=== PATIENT | male | born 1935 | race Caucasian/White ===

== ENCOUNTER 2023-07-05 18:05 | Emergency (ER) | payer OTHER, SELFPAY ==
[2023-07-05] VITALS (10 sets, daily range): BP systolic 137–203; BP diastolic 65–87; PULSE 64–96; RESP 16–26; TEMP 37–37.2; O2SAT 95–98; BMI 30.5
[2023-07-05 19:28] LABS: Alanine Aminotransferase 34 IU/L (<50); Albumin 4.1 g/dL (3.5-5.0); Albumin Globulin Ratio 1.3 (1.0-2.8); Alkaline Phosphatase 103 U/L (38-126); Aspartate Aminotransferase 32 IU/L (17-59); BUN Creatinine Ratio 16.7 (6-22); Bilirubin Total 0.9 mg/dL (0.2-1.3); Blood Urea Nitrogen 19 mg/dL (9-20); Calcium 9.6 mg/dL (8.4-10.2); Carbon Dioxide 24 mmol/L (22-32); Chloride 104 mmol/L (98-107); Estimated Glomerular Filt Rate > 60 mL/min (>60); Globulin 3.1 g/dL (1.7-4.1); Glucose 101 mg/dL (80-110); HEMOLYSIS < 15 (0-50); Lipase 224 U/L (23-300); Potassium 4.6 mmol/L (3.4-5.1); Sodium 135 mmol/L (137-145); Total Protein 7.2 g/dL (6.3-8.2)
[2023-07-05 20:26] LABS: Add Manual Diff / Slide Review NO; Basophils Absolute Auto 0 /uL (0-100); Basophils Percent Auto 0.4 % (0-2); Eosinophils Absolute Auto 100 /uL (0-450); Eosinophils Percent Auto 1.6 % (2-4); Hematocrit 45.8 % (41-53); Hemoglobin 15.6 g/dL (13.5-17.5); Lymphocytes Absolute Auto 900 /uL (1100-4500); Mean Corpuscular HGB Conc 34.1 % (30-36); Mean Corpuscular Hemoglobin 30.8 PG (26-34); Mean Corpuscular Volume 90.5 fL (80-100); Monocytes Absolute Auto 800 /uL (0-900); Monocytes Percent Auto 9.9 % (3-14); Neutrophils Absolute Auto 6600 /uL (1500-7000); Neutrophils Percent Auto 77.1 % (50-75); Platelet Count 166 X10^3/uL (150-400); Red Blood Cell Count 5.06 X10^6/uL (4.5-5.9); Red Cell Distribution Width 14.3 % (11.6-14.8); White Blood Cell Count 8.5 X10^3/uL (4.5-11.0)
--- NOTE | 2023-07-05 20:38 | DI.CT.S_ITS ---
PROCEDURE: CT ABDOMEN PELVIS W CON INDICATIONS: back pain radiates to lower abd x 1 day TECHNIQUE: After the administration of intravenous contrast, axial sections acquired from the lung bases to the pubic symphysis. Coronal and sagittal reformats were performed. For radiation dose reduction, the following was used: automated exposure control, adjustment of mA and/or kV according to patient size. COMPARISON: [facility], CT, CT ANGIO CHEST PE, 06/11/2019, 15:02. FINDINGS: Image quality: Excellent. Lung bases: Small hiatal hernia. Heart: Cardiomegaly. ABDOMEN: Liver: Unremarkable. Gallbladder: Absent. Biliary ducts: Unremarkable. Pancreas: 2.8 cm cystic lesion associated with the pancreatic body, without internal complexity (series 2, image 24). No ductal dilation. Spleen: Unremarkable. Adrenal Glands: Unremarkable. Kidneys and Ureters: Fluid attenuating renal cysts; no complex renal cysts which require follow-up. No hydronephrosis or nephrolithiasis. Stomach and Bowel: Colonic diverticulosis without evidence of diverticulitis. Peritoneum: No abnormal intraperitoneal fluid. No free air. Ventral Wall: No hernias. Abdominal Nodes: No retroperitoneal or mesenteric adenopathy by size criteria. Vessels: Aorta and inferior vena cava are normal in size. PELVIS: Pelvic Organs: Prostatomegaly. Bladder: Unremarkable. Pelvic Nodes: No enlarged lymph nodes. Miscellaneous: Small amount of fat within the inguinal canals. Bones: Subacute appearing compression deformity of the L4 inferior endplate, without endplate retropulsion. Anterior wedging the T12 vertebral body. IMPRESSION: Subacute appearing compression deformity of the L4 inferior endplate, without endplate retropulsion. 2.8 cm cystic lesion within the pancreatic body, without associated nodularity or ductal dilation. Findings favor a side branch IPMN. Confirmation with nonurgent MRI (pancreatic mass protocol) is recommended for further characterization. Colonic diverticulosis without evidence of diverticulitis. No obstructing stones or hydronephrosis. Dictated by: Ever Blackburn M.D. on 07/05/2023 at 21:18 Approved by: Ever Blackburn M.D. on 07/05/2023 at 21:28
[2023-07-05] MEDS: KETOROLAC 30 MG/ML VIAL 15 MG IV (20:45)
[2023-07-05] MEDS: ONDANSETRON 4 MG/2 ML INJ IV (20:45)
[2023-07-05] MEDS: SODIUM CHLORIDE 0.9% 1,000 ML 1000 ML IV (20:45)
--- NOTE | 2023-07-05 20:54 | ED.ABDPAIN ---
HPI - Abdominal Pain General Chief Complaint: Abdominal Pain Stated Complaint: pancreatic pain, back pain, nausea Time Seen by Provider: 07/05/23 20:23 Source: patient Mode of arrival: Wheelchair Limitations: no limitations History of Present Illness HPI narrative: 87-year-old male with history of hypertension, dyslipidemia, coronary artery disease with prior CABG, anticoagulated on aspirin, urinary retention, diabetes, hypertension, GERD and mild dementia. Patient presents with complaint of back and abdominal pain that just started today. He states it feels like it wants to explode. He thought he might be pancreatitis which he is had in the past but he states it is somewhat different. He was watching his diet today which has not made any improvements. He denies any fevers or chills. No chest pain no shortness of breath. He did have some nausea today he is not had any vomiting. Had a diarrhea like bowel movement today x1. No black or bloody stools. States was stooling regularly yesterday. Noted his urination was a little bit less and more frequent today but no dysuria. He denies any swelling in extremities. States pain is bilaterally in his back and comes around to the front. Patient's home meds include aspirin, atorvastatin, bumetanide seen, B12, donepezil, Jardiance, metoprolol, Motegrity, nitro sublingual, omeprazole and Ambien. Prior surgeries include CABG x2, denies any prior pacemakers or prior abdominal surgeries. No known drug allergies. No tobacco alcohol every 3 months, no recreational drugs or illicit. He splits his time between [place] and [place]. His primary care is Dr. Antunez in [place], [place]. Related Data Home Medications Medication Instructions Recorded Confirmed atorvastatin 80 mg tablet 80 mg PO DAILY 02/09/22 02/09/22 donepezil 10 mg tablet 10 mg PO DAILY 02/09/22 02/09/22 furosemide 20 mg tablet (Lasix) 10 mg PO QAM 02/09/22 02/09/22 isosorbide mononitrate 20 mg tablet 20 mg PO BID 02/09/22 02/09/22 metoprolol succinate 25 mg 25 mg PO DAILY 02/09/22 02/09/22 tablet,extended release 24 hr omeprazole magnesium 20 mg 20 mg PO DAILY 02/09/22 02/09/22 capsule,delayed release ([employer] (omeprazole)) tamsulosin 0.4 mg capsule 0.4 mg PO BEDTIME 02/09/22 02/09/22 zolpidem 5 mg tablet 5 mg PO BEDTIME PRN 02/09/22 02/09/22 Previous Rx's Medication Instructions Recorded benzonatate 100 mg capsule 100 mg PO TID PRN cough #30 caps 02/09/22 meloxicam 7.5 mg tablet 7.5 mg PO BID PRN pain #10 tabs 07/05/23 Allergies Allergy/AdvReac Type Severity Reaction Status Date / Time No Known Drug Allergies Allergy Unverified 02/09/22 16:47 Review of Systems Review of Systems ROS Unobtainable: All systems reviewed & are unremarkable except as noted in HPI and below Patient History Social History Smoking Status: Never smoker Smoking Status: Never smoker Substance Use Type: does not use Exam Narrative Exam Narrative: GENERAL: Alert and oriented x three, elderly male in mild distress. HEENT: Head normocephalic, atraumatic, EOMI, pupils reactive, face symmetric, moist mucous membranes NECK: Supple, full range of motion CARDIOVASCULAR: Regular rate and rhythm without murmurs, rubs or gallops. RESPIRATORY: Breath sounds equal bilaterally, no wheezes rales or rhonchi. ABDOMEN: Soft, generalized mild tenderness. Found distended. Normoactive bowel sounds all 4 quadrants. No guarding or rebound, rigidity, no mass, hernias. No palpable bladder. : No CVA tenderness EXTREMITIES: Normal range of motion, no clubbing or edema. Neurovascularly intact. NEUROLOGICAL: Cranial nerves II through XII grossly intact. Moving all extremities SKIN: Warm, dry, no petechiae, no rashes or lesions. Initial Vital Signs Initial Vital Signs: Vital Signs Temperature 98.9 F 07/05/23 18:25 Pulse Rate 72 07/05/23 18:25 Respiratory Rate 18 07/05/23 18:25 Blood Pressure 137/65 07/05/23 18:25 Pulse Oximetry 98 07/05/23 18:25 Oxygen Delivery Method Room Air 07/05/23 18:25 Course Orders Ordered: ED Orders 07/05/23 18:31 EKG-12 Lead Stat 07/05/23 19:05 Complete Blood Count AUTO DIFF Stat Comprehensive Metabolic Panel Stat Lipase Stat 07/05/23 20:38 CT abdomen pelvis w con Stat 07/05/23 20:42 Urine Microscopic Stat Discontinued Medications Sodium Chloride (Normal Saline 0.9%) 1,000 mls @ 1,000 mls/hr IV BOLUS ONE Stop: 07/05/23 21:37 Last Infusion: 07/05/23 21:45 Dose: Infused Documented By: Admin: 07/05/23 20:45 Dose: 1,000 mls/hr Documented By: AMV Ketorolac Tromethamine (Ketorolac 30 Mg/Ml Vial) 15 mg IV NOW ONE Stop: 07/05/23 20:39 Last Admin: 07/05/23 20:45 Dose: 15 mg Documented By: AMV Ondansetron HCl (Ondansetron 4 Mg Odt) 4 mg PO NOW PRN PRN Reason: Nausea And Vomiting Ondansetron HCl (Ondansetron 4 Mg/2 Ml Inj) 4 mg IV NOW PRN PRN Reason: Nausea And Vomiting Last Admin: 07/05/23 20:45 Dose: 4 mg Documented By: AMPino Tramadol HCl (Tramadol 50 Mg Prepack) 1 bottle MISC SEEINSTR ONE Stop: 07/05/23 21:55 Vital Signs Vital signs: Vital Signs - 8 hr 07/05/23 19:04 07/05/23 19:30 07/05/23 19:31 Temperature Pulse Rate 64 72 72 Respiratory Rate 18 20 20 Blood Pressure Pulse Oximetry 97 95 95 Oxygen Delivery Method 07/05/23 19:31 07/05/23 20:00 07/05/23 20:01 Temperature Pulse Rate 69 Respiratory Rate 26 H Blood Pressure 195/82 H 194/87 H Pulse Oximetry 96 Oxygen Delivery Method 07/05/23 20:01 07/05/23 20:30 07/05/23 20:30 Temperature Pulse Rate 77 80 Respiratory Rate 22 22 Blood Pressure 179/82 H Pulse Oximetry 96 98 Oxygen Delivery Method 07/05/23 21:03 07/05/23 21:13 07/05/23 21:13 Temperature Pulse Rate 79 75 Respiratory Rate 18 20 Blood Pressure 203/79 H Pulse Oximetry 97 95 Oxygen Delivery Method 07/05/23 21:59 Temperature 98.6 F Pulse Rate 96 H Respiratory Rate 16 Blood Pressure 163/76 H Pulse Oximetry 96 Oxygen Delivery Method Room Air MDM - Abdominal Pain Lab Data 07/05/23 19:05 07/05/23 19:05 Labs: Lab Results 07/05/23 07/05/23 Range/Units 19:05 20:42 WBC 8.5 (4.5-11.0) X10^3/uL RBC 5.06 (4.5-5.9) X10^6/uL Hgb 15.6 (13.5-17.5) g/dL Hct 45.8 (41-53) % MCV 90.5 (80-100) fL MCH 30.8 (26-34) PG MCHC 34.1 (30-36) % RDW 14.3 (11.6-14.8) % Plt Count 166 (150-400) X10^3/uL Neut % (Auto) 77.1 H (50-75) % Lymph % (Auto) 11.0 L (25-40) % [place] % (Auto) 9.9 (3-14) % Eos % (Auto) 1.6 L (2-4) % Baso % (Auto) 0.4 (0-2) % Neut # (Auto) 6600 (6871-8370) /uL Lymph # (Auto) 900 L (5430-5608) /uL [place] # (Auto) 800 (0-900) /uL Eos # (Auto) 100 (0-450) /uL Baso # (Auto) 0 (0-100) /uL Sodium 135 L (137-145) mmol/L Potassium 4.6 (3.4-5.1) mmol/L Chloride 104 (98-107) mmol/L Carbon Dioxide 24 (22-32) mmol/L BUN 19 (9-20) mg/dL Creatinine 1.14 (0.66-1.25) mg/dL Estimated GFR > 60 (>60) mL/min BUN/Creatinine Ratio 16.7 (6-22) Glucose 101 (80-110) mg/dL Calcium 9.6 (8.4-10.2) mg/dL Total Bilirubin 0.9 (0.2-1.3) mg/dL AST 32 (17-59) IU/L ALT 34 (<50) IU/L Alkaline Phosphatase 103 (38-126) U/L Total Protein 7.2 (6.3-8.2) g/dL Albumin 4.1 (3.5-5.0) g/dL Globulin 3.1 (1.7-4.1) g/dL Albumin/Globulin Ratio 1.3 (1.0-2.8) Lipase 224 (23-300) U/L Urine RBC 0-1/hpf (0-5/HPF) Urine WBC None seen (0-5/HPF) Ur Squamous Epith Cells 0-1 /hpf (0-5/HPF) Urine Bacteria None seen (None) Ur Culture Indicated? Cult not indicated Point of care testing: Urine Dip Bedside Urine Glucose 1000 mg/dl Bedside Urine Bilirubin - Negative Bedside Urine Ketone +/- 5 Urine Specific [place] 1.015 Bedside Urine Occult Blood - Negative Bedside Urine pH 6 Bedside Urine Protein +/- 15 Bedside Urine Urobilinogen - Negative Bedside Urine Nitrite - Negative Bedside Urine Leukocytes - Negative Esterase Imaging Data CT scan - abdomen/pelvis: Radiologist's Impression: Gaudencio Mckoy??87??M??1935 ? Allergy/Adv: No Known Drug Allergies Close Abdomen/Pelvis CT (Signed) Ever Blackburn - 07/05/23 [address]?[place] [address] CT Scan Report Signed Patient: Gaudencio Mckoy MR#: [id number] : 1935 Acct:[id number] Age/Sex: 87 / M Date of Service: 07/05/23 Loc: ED Accession Number: [id number] Procedure: CT abdomen pelvis w con Ordering Provider: Alice Harp D.O. PROCEDURE: CT ABDOMEN PELVIS W CON INDICATIONS: back pain radiates to lower abd x 1 day TECHNIQUE: After the administration of intravenous contrast, axial sections acquired from the lung bases to the pubic symphysis. Coronal and sagittal reformats were performed. For radiation dose reduction, the following was used: automated exposure control, adjustment of mA and/or kV according to patient size. COMPARISON: [facility], CT, CT ANGIO CHEST PE, 06/11/2019, 15:02. FINDINGS: Image quality: Excellent. Lung bases: Small hiatal hernia. Heart: Cardiomegaly. ABDOMEN: Liver: Unremarkable. Gallbladder: Absent. Biliary ducts: Unremarkable. Pancreas: 2.8 cm cystic lesion associated with the pancreatic body, without internal complexity (series 2, image 24). No ductal dilation. Spleen: Unremarkable. Adrenal Glands: Unremarkable. Kidneys and Ureters: Fluid attenuating renal cysts; no complex renal cysts which require follow-up. No hydronephrosis or nephrolithiasis. Stomach and Bowel: Colonic diverticulosis without evidence of diverticulitis. Peritoneum: No abnormal intraperitoneal fluid. No free air. Ventral Wall: No hernias. Abdominal Nodes: No retroperitoneal or mesenteric adenopathy by size criteria. Vessels: Aorta and inferior vena cava are normal in size. PELVIS: Pelvic Organs: Prostatomegaly. Bladder: Unremarkable. Pelvic Nodes: No enlarged lymph nodes. Miscellaneous: Small amount of fat within the inguinal canals. Bones: Subacute appearing compression deformity of the L4 inferior endplate, without endplate retropulsion. Anterior wedging the T12 vertebral body. IMPRESSION: Subacute appearing compression deformity of the L4 inferior endplate, without endplate retropulsion. 2.8 cm cystic lesion within the pancreatic body, without associated nodularity or ductal dilation. Findings favor a side branch IPMN. Confirmation with nonurgent MRI (pancreatic mass protocol) is recommended for further characterization. Colonic diverticulosis without evidence of diverticulitis. No obstructing stones or hydronephrosis. Dictated by: Ever Blackburn M.D. on 07/05/2023 at 21:18 Approved by: Ever Blackburn M.D. on 07/05/2023 at 21:28 ECG Data Attestation: I personally reviewed and interpreted this ECG as follows: Interpretation: Sinus rhythm with first-degree AV block rate of 60 6p are 224, QRS of 116 QTC of 410. Patient has frequent PVC. No acute ST changes are appreciated. Patient does not have priors for comparison. MDM Narrative Medical decision making narrative: 87-year-old male with complaint of lower abdominal/pelvic pain sudden onset today has been persistent has had prior histories of pancreatitis but states he feels somewhat different. Did have some nausea today no vomiting did have a diarrhea like stool. CBC shows slight leftward shift but normal white count, hemoglobin hematocrit and platelets. Sodium is 135 potassium 4 6 with normal renal function, BUN and LFTs with a negative lipase. Urine shows some protein but no nitrates or leuks. Started when RBCs no white cells, no bacteria. Patient's abdominal exam is overall benign. Patient was given dose of pain medication and on recheck he is feeling improved. CT abdomen pelvis subacute appearing compression deformity L4 without endplate retropulsion 2.8 meters cystic lesion pancreatic body without nodularity or ductal dilation is could be a side branch IPMN recommend confirmation with nonurgent MRI pancreatic mass protocol in the future no complex renal cyst but does have fluid attenuating renal cyst. Prostatomegaly and small amounts of fat with an inguinal canals. On recheck after pain medication patient is feeling much improved. Did have some pain still with transfer from wheelchair back to the bed but states he is much better. Reviewed all of his findings he feels comfortable returning back home. Patient states he does not have a specific timeframe to return to [place]. Discussed return precautions. Patient states he feels comfortable returning back to his home. Discharge Plan Departure Patient Disposition: Home Clinical Impression: Closed compression fracture of L4 vertebra, Cystic mass of pancreas Instructions: DI for Abdominal Pain-Adult Activity Restrictions/Additional Instructions: Your workup today shows a compression fracture L4 region this can cause pain in your back and sometimes wrap around. This appears to be subacute and could be contributing to your symptoms today. There is a cystic lesion in the pancreas that is 2.8 cm recommended to follow-up with your primary care for MRI pancreatic mass protocol in the future. Please call to set up follow-up. You may take Tylenol up to a 1000 mg every 6 hours as needed for pain. If in adequate you can also take meloxicam 1 tablet every 12 hours as needed. Do not take other NSAIDs such as Aleve, naproxen or ibuprofen with this medication. You have a small amount of narcotic pain medication you can take 1 tablet every 6 hours as needed. This medication can make you sleepy do not drive, perform hazardous activities or make any major decisions while taking it. This medication will make you constipated please take a stool softener once to twice daily until stools are soft and regular. Please return for fevers, rapidly worsening symptoms, new numbness, tingling or weakness down your extremities, new loss of bowel or bladder control, passing out or other new or concerning changes. Prescriptions: New meloxicam 7.5 mg tablet 7.5 mg PO BID PRN (Reason: pain) Qty: 10 0RF No Action benzonatate 100 mg capsule 100 mg PO TID PRN (Reason: cough) Qty: 30 0RF omeprazole magnesium [[employer] (omeprazole)] 20 mg capsule,delayed release(DR/EC) 20 mg PO DAILY isosorbide mononitrate 20 mg tablet 20 mg PO BID Rx Instructions: give doses 7 hrs apart furosemide [Lasix] 20 mg tablet 10 mg PO QAM tamsulosin 0.4 mg capsule 0.4 mg PO BEDTIME metoprolol succinate 25 mg tablet extended release 24 hr 25 mg PO DAILY atorvastatin 80 mg tablet 80 mg PO DAILY zolpidem 5 mg tablet 5 mg PO BEDTIME PRN donepezil 10 mg tablet 10 mg PO DAILY Referrals: Miscellaneous,Doctor, MD [Primary Care Provider] - Stand Alone Forms: Patient Portal/API
[2023-07-05 21:12] LABS: Bacteria Urine None Seen; Culture Indicated Urine Cult Not Indicated; RBC Urine 0-1/HPF (0-5/HPF); Squamous Epithelial Cell Urine 0-1 /HPF (0-5/HPF); WBC Urine None Seen (0-5/HPF)
== END 2023-07-05 22:16 | disposition home or self-care (01) ==
PROVIDERS: Emergency Provider Emergency Medicine
DX: M48.56XA Collapsed vertebra, not elsewhere classified, lumbar region, initial encounter for fracture (principal); K86.2 Cyst of pancreas; F03.A0 Unspecified dementia, mild, without behavioral disturbance, psychotic disturbance, mood disturbance, and anxiety
CPT/HCPCS: 36415; 74177; 80053; 81003; 81015; 83690; 85025; 93005; 93010; 96361; 96374; 96375; 99284; J1885; J2405; Q9967

== ENCOUNTER 2023-07-31 15:24 | Observation (INO) | payer OTHER, SELFPAY ==
[2023-07-31] VITALS (11 sets, daily range): BP systolic 132–188; BP diastolic 62–86; PULSE 75–88; RESP 16–30; TEMP 36.5–36.6; O2SAT 92–100; BMI 24.1
--- NOTE | 2023-07-31 15:35 | PC.NURSE ---
Recent hospitalization at [facility] for severe back pain and compression fractures. Patient being medicated with narcotics for back pain and visited by home health. Patient reports sudden loss of bowels dark in nature. Patient presents with dry dark black stool on lower legs and shirt. Patient states it just comes out with no control. Reports lightheaded and dizzy. Denies chest pain.
--- NOTE | 2023-07-31 15:42 | ED_ITS ---
HPI - GI Bleed General Chief complaint: GI Bleed Stated complaint: back pain, dizzy Time Seen by Provider: 07/31/23 15:40 Source: patient, EMS, RN notes reviewed and old records reviewed Mode of arrival: EMS Limitations: no limitations History of Present Illness HPI Narrative: 87-year-old male with history of hypertension, dyslipidemia, prior CABG, anticoagulant on aspirin, diabetes, hypertension, GERD and mild dementia. Patient states he was recently hospitalized at [facility] for vertebral fractures. He was discharged home after several days. Patient states since then he developed black tarry stools that have been several times daily that he is not been able to control. He is felt lightheaded denies syncope. Denies chest pain or shortness of breath. No nausea or vomiting. Patient has had frequent diarrhea like stools that have been melanotic. He does not appreciate any bright red blood. Patient denies any urinary changes but states maybe a little decreased. Related Data Home Medications Medication Instructions Recorded Confirmed atorvastatin 80 mg tablet 80 mg PO DAILY 02/09/22 07/31/23 donepezil 10 mg tablet 10 mg PO DAILY 02/09/22 07/31/23 metoprolol succinate 25 mg 100 mg PO DAILY 02/09/22 07/31/23 tablet,extended release 24 hr tamsulosin 0.4 mg capsule 0.4 mg PO BEDTIME 02/09/22 07/31/23 amlodipine 10 mg tablet 10 mg PO DAILY 07/31/23 07/31/23 bumetanide 1 mg tablet 1 mg PO DAILY 07/31/23 07/31/23 duloxetine 30 mg capsule,delayed 30 mg PO DAILY 07/31/23 07/31/23 release empagliflozin 10 mg tablet 10 mg PO DAILY 07/31/23 07/31/23 (Jardiance) losartan 100 mg tablet 100 mg PO DAILY 07/31/23 07/31/23 oxycodone 5 mg tablet 5 mg PO 4XD PRN Pain (Scale Score 07/31/23 07/31/23 4-6) trazodone 100 mg tablet 100 mg PO ONCE PM 07/31/23 07/31/23 Previous Rx's Medication Instructions Recorded meloxicam 7.5 mg tablet 7.5 mg PO BID PRN pain #10 tabs 07/05/23 Allergies Allergy/AdvReac Type Severity Reaction Status Date / Time No Known Drug Allergies Allergy Verified 07/31/23 15:39 Review of Systems Review of Systems ROS Unobtainable: All systems reviewed & are unremarkable except as noted in HPI and below Patient History Social History household members: spouse Smoking Status: Never smoker alcohol intake: former Smoking Status: Never smoker Substance Use Type: does not use Exam Narrative Exam Narrative: GENERAL: Alert and oriented x three, elderly male in mild distress. Patient does have black tarry stools on heat abdomen and scattered. HEENT: Head normocephalic, atraumatic, EOMI, pupils reactive, face symmetric, moist mucous membranes NECK: Supple, full range of motion CARDIOVASCULAR: Regular rate and rhythm without murmurs, rubs or gallops. RESPIRATORY: Breath sounds equal bilaterally, no wheezes rales or rhonchi. ABDOMEN: Soft, nontender. Normoactive bowel sounds all 4 quadrants. No guarding or rebound, rigidity, no mass, no active stool output on initial exam. : No CVA tenderness EXTREMITIES: Normal range of motion, no clubbing or edema. Neurovascularly intact NEUROLOGICAL: Cranial nerves II through XII grossly intact. Moving all extremities SKIN: Warm, dry, no petechiae, no rashes or lesions. Initial Vital Signs Initial Vital Signs: Vital Signs Temperature 98 F 07/31/23 15:34 Pulse Rate 80 07/31/23 15:34 Respiratory Rate 16 07/31/23 15:34 Blood Pressure 132/62 07/31/23 15:34 Pulse Oximetry 98 07/31/23 15:34 Oxygen Delivery Method Room Air 07/31/23 15:34 Course Orders Ordered: Atorvastatin Calcium (Atorvastatin 20 Mg Tablet) 80 mg PO DAILY NONA Donepezil HCl (Donepezil 5 Mg Tablet) 10 mg PO DAILY NONA Duloxetine HCl (Duloxetine 30 Mg Capsule) 30 mg PO DAILY NONA Sodium Chloride (Normal Saline 0.9%) 1,000 mls @ 100 mls/hr IV CONT NONA Last Admin: 07/31/23 23:30 Dose: 100 mls/hr Documented By: AGW Dextrose (D10w) 100 mls @ 1,200 mls/hr IV PRN PRN PRN Reason: Hypoglycemia Insulin Human Lispro (Insulin Lispro 100 Unit/Ml 3ml Vial) 0 unit SUBCUT ACHS NONA; Protocol Last Admin: 07/31/23 22:12 Dose: Not Given Documented By: ISAEL Metoprolol Succinate (Metoprolol Er 25 Mg Tablet) 100 mg PO DAILY [facility] Ondansetron HCl (Ondansetron 4 Mg/2 Ml Inj) 4 mg IV Q4HR PRN PRN Reason: Nausea And Vomiting Oxycodone HCl (Oxycodone Ir 5 Mg Tablet) 5 mg PO QID PRN PRN Reason: Pain, Moderate (4-6) Pantoprazole Sodium (Pantoprazole 40 Mg Vial) 40 mg IV BID [facility] Last Admin: 07/31/23 20:38 Dose: 40 mg Documented By: ISAEL Tamsulosin HCl (Tamsulosin 0.4 Mg Capsule) 0.4 mg PO BEDTIME [facility] Last Admin: 07/31/23 20:38 Dose: 0.4 mg Documented By: ISAEL Trazodone HCl (Trazodone 50 Mg Tablet) 100 mg PO BEDTIME [facility] Last Admin: 07/31/23 20:37 Dose: 100 mg Documented By: ISAEL Discontinued Medications Sodium Chloride (Normal Saline 0.9%) 1,000 mls @ 125 mls/hr IV CONT [facility] Last Infusion: 07/31/23 17:32 Dose: 125 mls/hr Documented By: Admin: 07/31/23 16:19 Dose: 125 mls/hr Documented By: EZRA Ondansetron HCl (Ondansetron 4 Mg/2 Ml Inj) 4 mg IV NOW PRN PRN Reason: Nausea And Vomiting Last Admin: 07/31/23 16:20 Dose: 4 mg Documented By: EZRA Pantoprazole Sodium (Pantoprazole 40 Mg Vial) 80 mg IV NOW ONE Stop: 07/31/23 15:41 Last Admin: 07/31/23 16:20 Dose: 80 mg Documented By: EZRA Vital Signs Vital signs: Vital Signs - 8 hr 07/31/23 15:34 07/31/23 15:38 07/31/23 16:00 Temperature 98 F Pulse Rate 80 80 79 Respiratory Rate 16 25 H 17 Blood Pressure 132/62 Pulse Oximetry 98 100 97 Oxygen Delivery Method Room Air 07/31/23 16:01 07/31/23 16:01 07/31/23 16:30 Temperature Pulse Rate 79 77 Respiratory Rate 19 23 Blood Pressure 188/72 H Pulse Oximetry 99 99 Oxygen Delivery Method 07/31/23 16:31 07/31/23 16:31 Temperature Pulse Rate 80 Respiratory Rate 30 H Blood Pressure 162/72 H Pulse Oximetry 99 Oxygen Delivery Method MDM - GI Bleed Lab Data 07/31/23 21:22 07/31/23 15:27 Labs: Lab Results 07/31/23 Range/Units 15:27 WBC 13.9 H (4.5-11.0) X10^3/uL RBC 4.23 L (4.5-5.9) X10^6/uL Hgb 12.7 L (13.5-17.5) g/dL Hct 37.8 L (41-53) % MCV 89.3 (80-100) fL MCH 30.0 (26-34) PG MCHC 33.6 (30-36) % RDW 14.7 (11.6-14.8) % Plt Count 186 (150-400) X10^3/uL Neut % (Auto) 79.9 H (50-75) % Lymph % (Auto) 13.4 L (25-40) % Swift % (Auto) 6.4 (3-14) % Eos % (Auto) 0.1 L (2-4) % Baso % (Auto) 0.2 (0-2) % Neut # (Auto) 08721 H (5814-7429) /uL Lymph # (Auto) 1900 (8660-6670) /uL Swift # (Auto) 900 (0-900) /uL Eos # (Auto) 0 (0-450) /uL Baso # (Auto) 0 (0-100) /uL PT 11.5 (9.4-12.5) SECONDS INR 1.0 (0.9-1.3) APTT 27 (25.1-36.5) SECONDS Sodium 134 L (137-145) mmol/L Potassium 4.2 (3.4-5.1) mmol/L Chloride 102 (98-107) mmol/L Carbon Dioxide 24 (22-32) mmol/L BUN 50 H (9-20) mg/dL Creatinine 1.27 H (0.66-1.25) mg/dL Estimated GFR 55 L (>60) mL/min BUN/Creatinine Ratio 39.4 H (6-22) Glucose 100 (80-110) mg/dL Calcium 9.3 (8.4-10.2) mg/dL Total Bilirubin 1.1 (0.2-1.3) mg/dL AST 27 (17-59) IU/L ALT 24 (<50) IU/L Alkaline Phosphatase 127 H (38-126) U/L Total Protein 6.1 L (6.3-8.2) g/dL Albumin 3.3 L (3.5-5.0) g/dL Globulin 2.8 (1.7-4.1) g/dL Albumin/Globulin Ratio 1.2 (1.0-2.8) Blood Type A Negative Antibody Screen Positive Antibody Identification Anti-Fya Imaging Data CT scan - abdomen/pelvis: Radiologist's Impression: [address] [address] [address] Scan Report Signed Patient: Gaudencio Mckoy MR#: [id number] : 1935 Acct:[id number] Age/Sex: 87 / M Date of Service: 07/31/23 Loc: ED Accession Number: [id number] Procedure: CT angio Abd/Pel GI Bleed Ordering Provider: Alice Harp D.O. PROCEDURE: CT ANGIO ABD/PEL GI BLEED INDICATIONS: gi bleed, melenotic stools x 3 days TECHNIQUE: Precontrast CT imaging of the abdomen and pelvis is performed. After the administration of intravenous contrast, 2.5 mm thick sections acquired from the diaphragm to the symphysis. 10 mm maximum-intensity projection (MIP) reformats were then acquired. For radiation dose reduction, the following was used: automated exposure control. COMPARISON: [facility], CT, CT ABDOMEN PELVIS W CON, 07/05/2023, 20:44. FINDINGS: Image quality: Excellent. Arterial tree: Moderate diffuse calcific plaque causes mild diffuse stenosis within the aortoiliac vasculature. Bilateral iliac artery stents are present. Mild calcific origin stenosis of the celiac artery. Moderate calcific origin stenosis of the superior mesenteric artery. 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 Extravascular soft tissues: Lung bases are clear. Heart size is normal. Liver is normal in size and enhancement. Gallbladder is surgically absent . Biliary system is non dilated. 30 mm exophytic cyst protrudes superiorly from the pancreatic body. Pancreas otherwise enhances normally. Spleen is normal in size and enhancement. No adrenal nodules. Kidneys are normal in size and enhancement, without hydronephrosis. Small hiatal hernia. Diverticulosis of the descending and sigmoid colon. Non opacified bowel loops are normal in wall thickness and caliber. No evidence of contrast extravasation into the bowel lumen. No free fluid or air. No retroperitoneal or mesenteric adenopathy. No ventral hernias. No suspicious bony lesions. No change in mild subacute wedging of L4. There is increased, severe acute versus subacute wedging of T12 IMPRESSION: 1. No evidence of active gastrointestinal hemorrhage. 2. No change in cystic lesion of the pancreas. 3. Small hiatal hernia. 4. Progressive T12 compression fracture. Dictated by: Mauri Thompson M.D. on 07/31/2023 at 16:05 Approved by: Mauri Thompson M.D. on 07/31/2023 at 16:16 MDM Narrative Medical decision making narrative: 87-year-old male presents with complaint of melanotic stools. Patient has been hemodynamically stable but did have a drop in hemoglobin from 15.6-12.7 in the past month. White count today is 13.9, patient has normal cell size. Platelets are 186. Coags are negative. Creatinine is 1.27 was 1.14 on 07/05 sodium is 134. BUN is elevated at 50 consistent with possible dehydration but more likely GI bleed. Other electrolytes are appropriate alk-phos is slightly elevated 127 but otherwise normal LFTs. Patient did have CT abdomen pelvis GI bleed protocol. No evidence of active GI bleeding, no change in cystic lesion in the pancreas, small hiatal hernia progressive T12 compression fracture. Moderate diffuse calcific plaque causing mild diffuse stenosis in the aortic iliac vasculature. Inferior mesenteric artery demonstrate high-grade origin stenosis. Patient does not have any abdominal pain making ischemic bowel unlikely. Patient received Protonix. Has type and screen pending. Does not require transfusion at this time. Continue with gentle fluids. Patient has been hemodynamically stable but did have a drop 3 points hemoglobin. Call out to Dr. Islas on-call for General surgery. Spoke with Dr. Raza, hospitalist accepts. waiting for call back from General surgery they currently in the OR. Discharge Plan Departure Patient Disposition: Admitted as Observation Clinical Impression: Acute GI bleeding Admit Date/Time: 07/31/23 17:13 Admit Provider: Kwabena Raza
[2023-07-31 16:03] LABS: Add Manual Diff / Slide Review NO; Basophils Absolute Auto 0 /uL (0-100); Basophils Percent Auto 0.2 % (0-2); Eosinophils Absolute Auto 0 /uL (0-450); Eosinophils Percent Auto 0.1 % (2-4); Hematocrit 37.8 % (41-53); Hemoglobin 12.7 g/dL (13.5-17.5); Lymphocytes Absolute Auto 1900 /uL (1100-4500); Lymphocytes Percent Auto 13.4 % (25-40); Mean Corpuscular HGB Conc 33.6 % (30-36); Mean Corpuscular Volume 89.3 fL (80-100); Monocytes Absolute Auto 900 /uL (0-900); Monocytes Percent Auto 6.4 % (3-14); Neutrophils Absolute Auto 11100 /uL (1500-7000); Neutrophils Percent Auto 79.9 % (50-75); Platelet Count 186 X10^3/uL (150-400); Red Blood Cell Count 4.23 X10^6/uL (4.5-5.9); Red Cell Distribution Width 14.7 % (11.6-14.8); White Blood Cell Count 13.9 X10^3/uL (4.5-11.0)
[2023-07-31 16:07] LABS: Prothrombin Time 11.5 SECONDS (9.4-12.5)
[2023-07-31 16:10] LABS: Alanine Aminotransferase 24 IU/L (<50); Albumin 3.3 g/dL (3.5-5.0); Albumin Globulin Ratio 1.2 (1.0-2.8); Alkaline Phosphatase 127 U/L (38-126); Aspartate Aminotransferase 27 IU/L (17-59); BUN Creatinine Ratio 39.4 (6-22); Bilirubin Total 1.1 mg/dL (0.2-1.3); Blood Urea Nitrogen 50 mg/dL (9-20); Calcium 9.3 mg/dL (8.4-10.2); Carbon Dioxide 24 mmol/L (22-32); Chloride 102 mmol/L (98-107); Estimated Glomerular Filt Rate 55 mL/min (>60); Globulin 2.8 g/dL (1.7-4.1); Glucose 100 mg/dL (80-110); HEMOLYSIS 19 (0-50); PTT Partial Thromboplastin Tim 27 SECONDS (25.1-36.5); Potassium 4.2 mmol/L (3.4-5.1); Sodium 134 mmol/L (137-145); Total Protein 6.1 g/dL (6.3-8.2)
[2023-07-31] MEDS: SODIUM CHLORIDE 0.9% 1,000 ML 125 ML IV (16:19)
[2023-07-31] MEDS: PANTOPRAZOLE 40 MG VIAL 80 MG IV (16:20)
[2023-07-31] MEDS: ONDANSETRON 4 MG/2 ML INJ IV (16:20)
--- NOTE | 2023-07-31 17:38 | PC.NURSE ---
Upon packaging patietn to go upstairs reports significant waves of nausea. Verbal order for additional dose of zofran.
[2023-07-31] MEDS: ONDANSETRON 4 MG/2 ML INJ (17:39)
[2023-07-31] MEDS: TRAZODONE 50 MG TABLET 100 MG PO (20:37)
[2023-07-31] MEDS: TAMSULOSIN 0.4 MG CAPSULE PO (20:38)
[2023-07-31] MEDS: PANTOPRAZOLE 40 MG VIAL IV (20:38)
--- NOTE | 2023-07-31 20:46 | PM.HP.1 ---
History of Present Illness History of Present Illness Chief complaint: back pain, dizzy Narrative: 87 years old male with history of hyperlipidemia, diabetes mellitus type 2, depression, anxiety, history of pancreatitis, recent thoracic compression fracture, GERD, history of CABG, mild dementia, CAD, presented to the ER with several days of melena. Patient also reports some constipation, feeling dizzy, lightheaded, poor appetite and oral intake. He was hospitalized for thoracic compression fracture in [facility] 2 weeks ago and was discharged on meloxicam. His last colonoscopy was more than 10 years ago. Currently take aspirin. Denies any fever, shortness of breath, cough, chest pain, palpitations, abdominal pain or dysuria. In the ER he was given Protonix 80 mg IV, NS bolus and Zofran. His initial laboratory shows C13.9, H&H 12/37.8, platelets 186, INR 1, sodium 134 potassium 4.2, creatinine 1.27, ALT 100, LFT normal, recent CT of the abdomen progressive T12 compression fracture. Surgery on-call was consulted. [facility] Social History household members: spouse Smoking Status: Never smoker alcohol intake: former Meds Home Medications and Allergies Home Medications Medication Instructions Recorded Confirmed Type atorvastatin 80 mg tablet 80 mg PO DAILY 02/09/22 07/31/23 History donepezil 10 mg tablet 10 mg PO DAILY 02/09/22 07/31/23 History metoprolol succinate 25 mg 100 mg PO DAILY 02/09/22 07/31/23 History tablet,extended release 24 hr tamsulosin 0.4 mg capsule 0.4 mg PO BEDTIME 02/09/22 07/31/23 History meloxicam 7.5 mg tablet 7.5 mg PO BID PRN pain #10 tabs 07/05/23 07/31/23 Rx amlodipine 10 mg tablet 10 mg PO DAILY 07/31/23 07/31/23 History bumetanide 1 mg tablet 1 mg PO DAILY 07/31/23 07/31/23 History duloxetine 30 mg capsule,delayed 30 mg PO DAILY 07/31/23 07/31/23 History release empagliflozin 10 mg tablet 10 mg PO DAILY 07/31/23 07/31/23 History (Jardiance) losartan 100 mg tablet 100 mg PO DAILY 07/31/23 07/31/23 History oxycodone 5 mg tablet 5 mg PO 4XD PRN Pain (Scale Score 07/31/23 07/31/23 History 4-6) trazodone 100 mg tablet 100 mg PO ONCE PM 07/31/23 07/31/23 History Allergies Allergy/AdvReac Type Severity Reaction Status Date / Time No Known Drug Allergies Allergy Verified 07/31/23 15:39 Review of Systems Review of Systems ROS: Yes All systems reviewed with the patient and are negative except as otherwise documented Constitutional Constitutional: Reports as per HPI and Reports system reviewed and no additional complaints, except as documented Eyes Eyes: Reports as per HPI and Reports system reviewed and no additional complaints, except as documented ENT Ears, Nose, Mouth, and Throat: Yes as per HPI and Yes system reviewed and no additional complaints, except as documented Cardiovascular Cardiovascular: Reports system reviewed and no additional complaints, except as documented Respiratory Respiratory: Reports system reviewed and no additional complaints, except as documented Gastrointestinal Gastrointestinal: Reports system reviewed and no additional complaints, except as documented Genitourinary Genitourinary: Reports system reviewed and no additional complaints, except as documented Musculoskeletal Musculoskeletal: Reports system reviewed and no additional complaints, except as documented, Reports abnormal gait and Reports numbness Neurologic Neurologic: Reports system reviewed and no additional complaints, except as documented, Reports abnormal gait, Reports confusion and Reports numbness Psychiatric Psychiatric: Reports system reviewed and no additional complaints, except as documented and Reports confusion Exam Vital Signs (past 8 hours): - 07/31/23 15:34 07/31/23 15:38 07/31/23 16:00 Temperature 98 F Pulse Rate 80 80 79 Respiratory Rate 16 25 H 17 Blood Pressure 132/62 Pulse Oximetry 98 100 97 Oxygen Delivery Method Room Air 07/31/23 16:01 07/31/23 16:01 07/31/23 16:30 Temperature Pulse Rate 79 77 Respiratory Rate 19 23 Blood Pressure 188/72 H Pulse Oximetry 99 99 Oxygen Delivery Method 07/31/23 16:31 07/31/23 16:31 07/31/23 17:00 Temperature Pulse Rate 80 75 Respiratory Rate 30 H 24 Blood Pressure 162/72 H Pulse Oximetry 99 94 Oxygen Delivery Method 07/31/23 17:01 07/31/23 17:01 07/31/23 17:29 Temperature Pulse Rate 75 88 Respiratory Rate 24 Blood Pressure 149/63 H Pulse Oximetry 92 93 Oxygen Delivery Method 07/31/23 17:30 Temperature Pulse Rate Respiratory Rate Blood Pressure 173/86 H Pulse Oximetry Oxygen Delivery Method Oxygen Delivery Method Room Air Const General: cooperative, comfortable and well developed Orientation: alert and oriented x3 HENGA Head: normal to inspection, normocephalic and atraumatic Face and sinus: normal facial exam Mouth: oral mucosae normal and moist mucous membranes Throat: posterior oropharynx normal Eyes General: appearance normal, both eyes and all related structures Pupils: PERRL EOM: EOM intact bilaterally Neck Neck: normal visual inspection and full ROM Chest Chest: normal inspection of the chest Resp Effort & Inspection: normal respiratory effort and able to speak in complete sentences Auscultation: clear to auscultation bilaterally Cardio Palpation: normal PMI Rate: regular rate Rhythm: regular rhythm Heart Sounds: S1 normal and S2 normal GI Inspection: normal to inspection Palpation: soft and no hepatosplenomegaly Auscultation: normal bowel sounds Skin General: no rashes or lesions noted Lesions: no lesions Rashes: no rashes Trauma: no lacerations or abrasions Neuro General: patient alert, patient awake, patient oriented x3 and no focal motor deficits Cranial Nerves: CN's II-XI intact bilaterally Cognition: normal cognition Speech: speech normal Gait: normal gait Motor: muscle tone normal throughout Sensory Exam: no sensory deficits noted Extrem General: full ROM and no calf tenderness Psych Appearance: grossly normal Mental Status: mental status grossly normal Speech and Movement: speech and movement normal Objective Labs 07/31/23 15:27 07/31/23 15:27 Labs: Laboratory Results - last 24 hr 07/31/23 15:27 WBC 13.9 H RBC 4.23 L Hgb 12.7 L Hct 37.8 L MCV 89.3 MCH 30.0 MCHC 33.6 RDW 14.7 Plt Count 186 Neut % (Auto) 79.9 H Lymph % (Auto) 13.4 L Sumner % (Auto) 6.4 Eos % (Auto) 0.1 L Baso % (Auto) 0.2 Neut # (Auto) 64815 H Lymph # (Auto) 1900 Sumner # (Auto) 900 Eos # (Auto) 0 Baso # (Auto) 0 PT 11.5 INR 1.0 APTT 27 Sodium 134 L Potassium 4.2 Chloride 102 Carbon Dioxide 24 BUN 50 H Creatinine 1.27 H Estimated GFR 55 L BUN/Creatinine Ratio 39.4 H Glucose 100 Calcium 9.3 Total Bilirubin 1.1 AST 27 ALT 24 Alkaline Phosphatase 127 H Total Protein 6.1 L Albumin 3.3 L Globulin 2.8 Albumin/Globulin Ratio 1.2 Assessment & Plan Assessment and plan (1) Acute GI bleeding: Problem details: H&H stable. Status: Acute Plan: Monitor H&H Protonix 40 mg IV twice daily Type and cross IV fluids Antiemetics as needed N.p.o. after midnight (2) HTN (hypertension): Status: Acute Plan: Hold amlodipine, Bumex and losartan for now Monitor blood pressure closely (3) Hyperlipidemia: Status: Acute Plan: Restart atorvastatin (4) GERD (gastroesophageal reflux disease): Status: Acute Plan: Continue PPI Antiemetics as needed (5) Dementia: Status: Acute Plan: Restart donepezil (6) Diabetes mellitus: Status: Acute Plan: Monitor blood sugar closely SSI Hold oral antidiabetic medications for now (7) Closed compression fracture of L4 vertebra: Status: Inactive Plan: Pain medications as needed. Time Spent With Patient Time with patient: 50 to 69 minutes with 50% spent counseling/coordinating care Quality VTE Deep Vein Thrombosis/Pulmonary Embolism Present on Admission: No MIPS - Admit I confirm the patient?s Advance Care Plan is present, Code status is documented, Surrogate decision maker is in patient?s record [If Yes, STOP here]: Yes MIPS - Meds 'Current medications' to include all prescriptions, [id number] products, herbals, cannabis/cannabidiol products, and vitamin/mineral/dietary (nutritional) supplements. I have utilized all available resources to obtain, update, or review the patient?s current medications. [If Yes, STOP here]: Yes
[2023-07-31 21:58] LABS: Hematocrit 32.4 % (41-53); Hemoglobin 11.2 g/dL (13.5-17.5)
[2023-07-31] MEDS: SODIUM CHLORIDE 0.9% 1,000 ML 100 ML IV (23:30)
[2023-08-01] VITALS (11 sets, daily range): BP systolic 100–154; BP diastolic 50–67; PULSE 61–80; RESP 12–20; TEMP 36.2–36.8; O2SAT 95–100; BMI 24.1
--- NOTE | 2023-08-01 | PATH_ITS ---
[facility] Accession Number: [id number] No. of containers..01 Tissue . 01 Material submitted: . duodenum - DUODENUM BIOPSY . 01 Diagnosis: Duodenum, Biopsy: Ulcerated duodenal mucosa with reactive epithelial changes. Negative for intraepithelial lymphocytosis. Negative for dysplasia and malignancy. [facility] 08/10/2023 1336 Local . 01 Electronically signed: . Codie Carrington MD, Pathologist NPI- [id number] . 01 Gross description: . DUODENUM BIOPSY: Received in formalin is 3 fragment(s) of wagner, soft tissue measuring 0.3 x 0.1 x 0.1 cm to 0.1 x 0.1 x 0.1 cm submitted entirely in 1 cassette(s) /AAY 08/02/2023 0515 Local . 01 Pathologist provided ICD-10: R10.9 . 01 CPT . 767433 Specimen Comment: A courtesy copy of this report has been sent to [phone] Performed at: 01 [facility] [address] [place] [address], [place], [place] [id number] MD Dean Sheffield MD Phone: [phone]
[2023-08-01 08:44] LABS: Add Manual Diff / Slide Review NO; Basophils Absolute Auto 0 /uL (0-100); Basophils Percent Auto 0.2 % (0-2); Eosinophils Absolute Auto 100 /uL (0-450); Eosinophils Percent Auto 0.7 % (2-4); Hematocrit 31.5 % (41-53); Hemoglobin 10.8 g/dL (13.5-17.5); Lymphocytes Absolute Auto 1400 /uL (1100-4500); Lymphocytes Percent Auto 17.2 % (25-40); Mean Corpuscular HGB Conc 34.2 % (30-36); Mean Corpuscular Hemoglobin 30.7 PG (26-34); Mean Corpuscular Volume 89.6 fL (80-100); Monocytes Absolute Auto 600 /uL (0-900); Monocytes Percent Auto 7.4 % (3-14); Neutrophils Absolute Auto 6200 /uL (1500-7000); Neutrophils Percent Auto 74.5 % (50-75); Platelet Count 123 X10^3/uL (150-400); Red Blood Cell Count 3.52 X10^6/uL (4.5-5.9); Red Cell Distribution Width 14.4 % (11.6-14.8); White Blood Cell Count 8.4 X10^3/uL (4.5-11.0)
[2023-08-01 09:04] LABS: BUN Creatinine Ratio 30.8 (6-22); Blood Urea Nitrogen 37 mg/dL (9-20); Calcium 8.6 mg/dL (8.4-10.2); Carbon Dioxide 21 mmol/L (22-32); Chloride 107 mmol/L (98-107); Estimated Glomerular Filt Rate 59 mL/min (>60); Glucose 82 mg/dL (80-110); HEMOLYSIS < 15 (0-50); Potassium 4.3 mmol/L (3.4-5.1); Sodium 134 mmol/L (137-145)
[2023-08-01] MEDS: ATORVASTATIN 20 MG TABLET 80 MG PO (10:06)
[2023-08-01] MEDS: DONEPEZIL 5 MG TABLET 10 MG PO (10:06)
[2023-08-01] MEDS: DULOXETINE 30 MG CAPSULE PO (10:06)
[2023-08-01] MEDS: METOPROLOL ER 25 MG TABLET 100 MG PO (10:07)
[2023-08-01] MEDS: PANTOPRAZOLE 40 MG VIAL IV (10:07)
--- NOTE | 2023-08-01 11:53 | P.HP_ITS ---
History of Present Illness History of Present Illness Date Patient Seen: 08/01/23 Time Patient Seen: 11:53 Chief complaint: back pain, dizzy Narrative: 87-year-old man with a recent vertebral fracture on meloxicam who presented to the [facility] Emergency Department room with melena and weakness. Initial hematocrit 32 one month ago had been 45. Vital signs within normal limits. No history of peptic ulcer disease. He is not on anticoagulation. [facility] Social History household members: spouse Smoking Status: Never smoker alcohol intake: former Meds Home Medications and Allergies Home Medications Medication Instructions Recorded Confirmed Type atorvastatin 80 mg tablet 80 mg PO DAILY 02/09/22 07/31/23 History donepezil 10 mg tablet 10 mg PO DAILY 02/09/22 07/31/23 History metoprolol succinate 25 mg 100 mg PO DAILY 02/09/22 07/31/23 History tablet,extended release 24 hr tamsulosin 0.4 mg capsule 0.4 mg PO BEDTIME 02/09/22 07/31/23 History meloxicam 7.5 mg tablet 7.5 mg PO BID PRN pain #10 tabs 07/05/23 07/31/23 Rx amlodipine 10 mg tablet 10 mg PO DAILY 07/31/23 07/31/23 History bumetanide 1 mg tablet 1 mg PO DAILY 07/31/23 07/31/23 History duloxetine 30 mg capsule,delayed 30 mg PO DAILY 07/31/23 07/31/23 History release empagliflozin 10 mg tablet 10 mg PO DAILY 07/31/23 07/31/23 History (Jardiance) losartan 100 mg tablet 100 mg PO DAILY 07/31/23 07/31/23 History oxycodone 5 mg tablet 5 mg PO 4XD PRN Pain (Scale Score 07/31/23 07/31/23 History 4-6) trazodone 100 mg tablet 100 mg PO ONCE PM 07/31/23 07/31/23 History Allergies Allergy/AdvReac Type Severity Reaction Status Date / Time No Known Drug Allergies Allergy Verified 07/31/23 15:39 Exam Vital Signs (past 8 hours): - 08/01/23 08:00 Temperature 98 F Pulse Rate 74 Respiratory Rate 16 Blood Pressure 139/53 L Pulse Oximetry 99 Oxygen Flow Rate 0 Oxygen Delivery Method Room Air Oxygen Flow Rate 0 Narrative Exam Narrative: GENERAL: A well nourished, well developed elderly man, resting comfortably, in no acute distress. HEENT: Normocephalic, atraumatic. No scleral icterus CHEST: Rising symmetrically. No audible wheezes CARDIOVASCULAR: Warm and well perfused. Regular rate ABDOMEN: Soft, non-tender, non-distended EXTREMITIES: Normal tone and without edema. NEUROLOGIC: Moving all extremities spontaneously. No gross motor deficits. Objective Labs 08/01/23 07:38 08/01/23 07:38 Labs: Laboratory Results - last 24 hr 07/31/23 07/31/23 08/01/23 15:27 21:22 07:38 WBC 13.9 H 8.4 RBC 4.23 L 3.52 L Hgb 12.7 L 11.2 L 10.8 L Hct 37.8 L 32.4 L 31.5 L MCV 89.3 89.6 MCH 30.0 30.7 MCHC 33.6 34.2 RDW 14.7 14.4 Plt Count 186 123 L Neut % (Auto) 79.9 H 74.5 Lymph % (Auto) 13.4 L 17.2 L [place] % (Auto) 6.4 7.4 Eos % (Auto) 0.1 L 0.7 L Baso % (Auto) 0.2 0.2 Neut # (Auto) 75797 H 6200 Lymph # (Auto) 1900 1400 Holt # (Auto) 900 600 Eos # (Auto) 0 100 Baso # (Auto) 0 0 PT 11.5 INR 1.0 APTT 27 Sodium 134 L 134 L Potassium 4.2 4.3 Chloride 102 107 Carbon Dioxide 24 21 L BUN 50 H 37 H Creatinine 1.27 H 1.20 Estimated GFR 55 L 59 L BUN/Creatinine Ratio 39.4 H 30.8 H Glucose 100 82 Calcium 9.3 8.6 Total Bilirubin 1.1 AST 27 ALT 24 Alkaline Phosphatase 127 H Total Protein 6.1 L Albumin 3.3 L Globulin 2.8 Albumin/Globulin Ratio 1.2 Blood Type A Negative Antibody Screen Positive Antibody Identification Anti-Fya Assessment & Plan Assessment and plan (1) Acute GI bleeding: Problem details: H&H stable. Status: Acute Plan: 87-year-old man admitted with a GI bleed not on anticoagulation hemodynamically stable presumably upper source. Diagnostic esophagoduodenoscopy recommended. Overview of the procedure discussed. Procedural risks including hemorrhage, intestinal injury were discussed. Questions answered he is in agreement with this plan provides his written consent to proceed. Quality VTE Deep Vein Thrombosis/Pulmonary Embolism Present on Admission: No
[2023-08-01] MEDS: LACTATED RINGERS 1,000 ML 42 ML IV (11:55)
--- NOTE | 2023-08-01 12:34 | PM.OP.EGD ---
Operative Date/Time/Diagnoses Date of procedure: 08/01/23 Time of procedure: 12:34 Pre-op diagnosis: GI bleed Post-op diagnosis: other (Gastritis, gastric outlet mass) Procedure & Clinicians Study performed: Esophagoduodenoscopy Same procedure as scheduled: Yes Indications: Hemodynamically stable GI bleed presumably upper and source Surgeon: Roland Antonio Procedure Notes Procedure in detail: The history and physical was performed/updated and the patient is ASA class is 2. The procedure was discussed in detail with the patient. Potential risks complications including infection, bleeding, missed diagnosis, perforation, need for surgery, and were explained. Their questions were answered and informed consent was obtained. Patient placed in left lateral decubitus position. Time out was performed. Procedural sedation was administered by Anesthesia. A bite block was placed. the scope was inserted into the mouth and advanced through the esophagus and into the stomach. The pylorus was intubated and the duodenum was examined to the 2nd portion. The scope was then withdrawn into the stomach and was retroflexed. The stomach was decompressed and scope was withdrawn slowly through the esophagus. FINDINGS -Intubation of the pyloric channel was quite difficult. There appears to be a mass within the gastric outlet which is concerning in appearance for malignancy. Multiple biopsies were taken. -gastritis of the antrum no distinct ulcer active hemorrhage The patient tolerated the procedure well and will be discharged when they meet criteria. Specimen(s): other (Duodenal/gastric outlet biopsy) Impression: Gastritis Mass of gastric outlet Post-procedure Plan for aftercare: Follow up pathology Disposition: Acute Care
[2023-08-01 15:29] LABS: Lipase 392 U/L (23-300)
--- NOTE | 2023-08-01 15:30 | CM.DANOTE ---
Initial DCP Assessment Visit Reviewed EMR and team rounds for pt's medical status and initial anticipated d/c needs. Went to meet with pt at bedside, he was found to be sleeping, appearing comfortable, but had reportedly been highly agitated and delirious post-op today. Will plan to visit w/him tomorrow when he is anticipated to be more mentally clear. Payor: Paulino Attending: Dr. Antonio, Hospitalist Pt is a 87 maximo-old M who presented to the ED on 07/31/23 with c/o having several black, tarry stools per day (incontinent) with increasing weakness/fatigue. He shared that he had been hospitalized about 2-weeks ago for several days at [facility] for multiple vertabral fractures, was discharged back home and consequently developed melena. Pt resides independently (mostly) at baseline with his . Pt's ED eval determined he was having an acute GI bleed. Surgery was consulted, pt then had a esophagoduodenoscopy today, which revealed a mass in the gastric outlet concerning for malignancy. Several biopsies were taken, plan is for pt to d/c home with OP f/u with surgery once the pathology is available. DCP planning will follow and monitor for any additional d/c planning needs as they evolve. Discharge Planning/Care Management CM Discharge Assessment Start: 08/01/23 15:11 Freq: Status: Active Protocol: Document 08/01/23 15:11 DPL (Rec: 08/01/23 15:30 DPL [id number]) Discharge Planning Assessment Assigned Ward Nurse TIFFANIE Paulson Advance Directives? No History Provided By Patient,Medical Record Has Patient been admitted in last 30 No days? Comment Pt was recently admitted at [facility] 2-weeks ago for multiple vertabral fractures. Prior Living Arrangements Other Comment currently living on his boat which is [place]ed in [place] but [place] lives in [place] with his spouse Household Members spouse Type of transporation used prior to Drives own vehicle admit Independent with ADL's Yes: Pt does have mild dementia at baseline. Is patient alert and oriented? No: Pt has been agitated and delirious post-surgery. Caregiver for Another No Comment N/A Comment No anticipated d/c needs identified at this time. Barriers to Discharge No Discharge Plan Home Transportation Arrangement OP f/u with surgery. Referrals Initiated None needed Whiteboard Updated in Patient Room with Yes name and ext. # of Ward Nurse Review Status In Process Please Provide Date Initial DC 08/01/23 Assessment Was Performed
[2023-08-01 17:19] LABS: TSH w/ Reflex to FT4 2.21 uIU/mL (0.47-4.68)
--- NOTE | 2023-08-01 17:27 | P.PN_ITS ---
Subjective Subjective Interval history: Patient had EGD which showed pyloric mass which was non-bleeding. Multiple biopsies done. Patient updated on this. Exam Vital Signs (past 8 hours): - 08/01/23 12:05 08/01/23 12:35 08/01/23 12:35 Temperature 97.2 F L 98.3 F Pulse Rate 70 79 78 Respiratory Rate 16 20 12 Blood Pressure 140/62 101/50 L 100/52 L Pulse Oximetry 95 99 100 Oxygen Delivery Method Room Air Nasal Cannula Room Air Oxygen Flow Rate 2 08/01/23 12:40 08/01/23 12:45 08/01/23 13:00 Temperature 98.1 F 97.8 F Pulse Rate 80 78 70 Respiratory Rate 13 12 16 Blood Pressure 112/67 124/65 146/58 H Pulse Oximetry 98 100 99 Oxygen Delivery Method Room Air Room Air Oxygen Flow Rate 08/01/23 13:30 08/01/23 14:00 08/01/23 15:00 Temperature Pulse Rate 75 73 66 Respiratory Rate 16 16 Blood Pressure 135/59 L 135/54 L 126/52 L Pulse Oximetry 96 97 Oxygen Delivery Method Oxygen Flow Rate 08/01/23 16:00 Temperature Pulse Rate 68 Respiratory Rate 16 Blood Pressure 144/54 H Pulse Oximetry 96 Oxygen Delivery Method Oxygen Flow Rate Oxygen Delivery Method Room Air Oxygen Flow Rate 2 Narrative Exam Narrative: GENERAL: A well nourished, well developed elderly man, resting comfortably, in no acute distress. HEENT: Normocephalic, atraumatic. No scleral icterus CHEST: Rising symmetrically. No audible wheezes CARDIOVASCULAR: Warm and well perfused. Regular rate ABDOMEN: Soft, non-tender, non-distended EXTREMITIES: Normal tone and without edema. NEUROLOGIC: Moving all extremities spontaneously. No gross motor deficits. Objective Labs 08/01/23 07:38 08/01/23 07:38 Labs: Laboratory Results - last 24 hr 07/31/23 07/31/23 08/01/23 15:27 21:22 07:38 WBC 8.4 RBC 3.52 L Hgb 11.2 L 10.8 L Hct 32.4 L 31.5 L MCV 89.6 MCH 30.7 MCHC 34.2 RDW 14.4 Plt Count 123 L Neut % (Auto) 74.5 Lymph % (Auto) 17.2 L [place] % (Auto) 7.4 Eos % (Auto) 0.7 L Baso % (Auto) 0.2 Neut # (Auto) 6200 Lymph # (Auto) 1400 [place] # (Auto) 600 Eos # (Auto) 100 Baso # (Auto) 0 Sodium 134 L Potassium 4.3 Chloride 107 Carbon Dioxide 21 L BUN 37 H Creatinine 1.20 Estimated GFR 59 L BUN/Creatinine Ratio 30.8 H Glucose 82 Calcium 8.6 Lipase 392 H TSH Blood Type A Negative Antibody Screen Positive Antibody Identification Anti-Fya 08/01/23 16:37 WBC RBC Hgb Hct MCV MCH MCHC RDW Plt Count Neut % (Auto) Lymph % (Auto) [place] % (Auto) Eos % (Auto) Baso % (Auto) Neut # (Auto) Lymph # (Auto) [place] # (Auto) Eos # (Auto) Baso # (Auto) Sodium Potassium Chloride Carbon Dioxide BUN Creatinine Estimated GFR BUN/Creatinine Ratio Glucose Calcium Lipase TSH 2.21 Blood Type Antibody Screen Antibody Identification PFSH Social History household members: spouse Smoking Status: Never smoker alcohol intake: former Assessment & Plan Assessment and plan (1) Acute GI bleeding: Problem details: H&H stable. 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 Biopsies pending Rec f/up at [facility] in [place] where patient lives Hgb stable Aspirin stopped Can stop PPI (2) HTN (hypertension): Status: Acute Plan: Hold amlodipine, Bumex and losartan for now Monitor blood pressure closely (3) Hyperlipidemia: Status: Acute Plan: Restart atorvastatin (4) GERD (gastroesophageal reflux disease): Status: Acute Plan: Continue PPI Antiemetics as needed (5) Dementia: Status: Acute Plan: Restart donepezil (6) Diabetes mellitus: Status: Acute Plan: Monitor blood sugar closely SSI Hold oral antidiabetic medications for now (7) Closed compression fracture of L4 vertebra: Status: Inactive Plan: Pain medications as needed. Plan Dispo: Likely home on 08/02 pending PT eval. Time Spent With Patient Time with patient: 50 to 69 minutes with 50% spent counseling/coordinating care Quality VTE Deep Vein Thrombosis/Pulmonary Embolism Present on Admission: No
--- NOTE | 2023-08-01 18:46 | PC.NURSE ---
Patient encouraged to get up to the bsc and he refuses to get out of bed, I just get so dizzy. Encouraged to eat but he wont touch any food. He is drinking a lot of water and ice, patient has been heplocked per MD order. He went for his EGD and per patient and report, a mass was found around stomach. HE will be discharged and follow up with a in [place]. He is resting now.
[2023-08-01] MEDS: TAMSULOSIN 0.4 MG CAPSULE PO (21:02)
[2023-08-01] MEDS: TRAZODONE 50 MG TABLET 100 MG PO (21:02)
[2023-08-02 04:27] VITALS: BP 141/56; BP 154/59; PULSE 62; PULSE 66
[2023-08-02 07:21] LABS: Add Manual Diff / Slide Review NO; Basophils Absolute Auto 0 /uL (0-100); Basophils Percent Auto 0.4 % (0-2); Eosinophils Absolute Auto 100 /uL (0-450); Eosinophils Percent Auto 2.2 % (2-4); Hematocrit 28.2 % (41-53); Hemoglobin 9.8 g/dL (13.5-17.5); Lymphocytes Absolute Auto 900 /uL (1100-4500); Lymphocytes Percent Auto 18.3 % (25-40); Mean Corpuscular HGB Conc 34.7 % (30-36); Mean Corpuscular Hemoglobin 30.9 PG (26-34); Mean Corpuscular Volume 89.3 fL (80-100); Monocytes Absolute Auto 400 /uL (0-900); Monocytes Percent Auto 8.2 % (3-14); Neutrophils Absolute Auto 3500 /uL (1500-7000); Neutrophils Percent Auto 70.9 % (50-75); Platelet Count 102 X10^3/uL (150-400); Red Blood Cell Count 3.16 X10^6/uL (4.5-5.9); Red Cell Distribution Width 14.5 % (11.6-14.8)
[2023-08-02 07:59] LABS: BUN Creatinine Ratio 25.5 (6-22); Blood Urea Nitrogen 26 mg/dL (9-20); Calcium 8.4 mg/dL (8.4-10.2); Carbon Dioxide 23 mmol/L (22-32); Chloride 104 mmol/L (98-107); Estimated Glomerular Filt Rate > 60 mL/min (>60); Glucose 87 mg/dL (80-110); HEMOLYSIS < 15 (0-50); Potassium 3.7 mmol/L (3.4-5.1); Sodium 132 mmol/L (137-145)
[2023-08-02 09:18] VITALS: BP 163/72; PULSE 61; RESP 16; TEMP 37.1; O2SAT 98
[2023-08-02] MEDS: AMLODIPINE 5 MG TABLET 10 MG PO (09:44)
[2023-08-02] MEDS: DULOXETINE 30 MG CAPSULE PO (09:45)
[2023-08-02] MEDS: ATORVASTATIN 20 MG TABLET 80 MG PO (09:45)
[2023-08-02] MEDS: SODIUM CHLORIDE 0.9% FLUSH 10 ML IV ×2 (09:45→20:45)
[2023-08-02] MEDS: METOPROLOL ER 25 MG TABLET 100 MG PO (09:45)
[2023-08-02] MEDS: DONEPEZIL 5 MG TABLET 10 MG PO (09:45)
--- NOTE | 2023-08-02 11:37 | CM.DPC ---
DCP Cont. Reviewed EMR and team rounds for status updates. PT worked with pt today, she expressed concerns about pt returning back to his boat, where he's been living since last February. There are also concerns about pt's level of dementia, and insight into his own health limitations. This TIRE FIXER met with pt at bedside. 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 He states that he thinks with a few more days of PT, that he could make it back to his boat until he can get to [place]. TIRE FIXER asked if family could come up and help him fly back down, he shared that his dtr and are working on a plan, but the holidays are making it challenging to take time off of work and get airline tickets at such a late notice. TIRE FIXER encouraged him to not return to the boat, or at least just temporarily, and that it may be that his new baseline is less functional than he had been before, given the bleed and rectal mass, which could be malignant. He agreed, expressed understanding. In terms of dementia and mental status, this TIRE FIXER found that he was able to appropriately and congruently interact in discussing next steps, and the urgency to make decisions. His 's contact info in the chart is wrong, it's actually pt's own cell phone, fyi. Cont. to follow and assist with safe d/c planning as able.
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
[2023-08-02 12:24] VITALS: BP 123/63; BP 149/63
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
--- NOTE | 2023-08-02 13:25 | OT.IP.EVAL ---
Current Diagnoses Type 2 diabetes mellitus without complications (07/31/23) Hyperlipidemia, unspecified (07/31/23) Unspecified dementia, unspecified severity, without behavioral disturbance, psychotic disturbance, mood disturbance, and anxiety (07/31/23) Essential (primary) hypertension (07/31/23) Orthostatic hypotension (07/31/23) Gastro-esophageal reflux disease without esophagitis (07/31/23) Gastrointestinal hemorrhage, unspecified (07/31/23) Wedge compression fracture of fourth lumbar vertebra, initial encounter for closed fracture (07/31/23) Surgery Performed Operation Date: 08/01/23 15:00 Actual Procedures p Esophagogastroduodenoscopy with biopsy - Roland Antonio MD Occupational Therapy Inpatient Evaluation/Re-Eval M1 PT/OT-IP Prior Functional Status Start: 08/02/23 08:00 Freq: NEEDED Status: Active Protocol: Document 08/02/23 13:25 [facility] (Rec: 08/02/23 14:51 [facility] [id number]) Medical Review Prior Functional Status Medical History Reviewed Yes Diet/Fluid Consistency Regular Communication Azerbaijani Mobility and Gait Ambulated without assistive device prior to recent compression fracture. Was issued a front wheeled walker upon discharge from [facility], but was not amb[place] much [place]. Pt reports lying in bed since discharge from [facility]. Activities of Daily Living and IADL's Normally independent with ADLs . Pt reports not eating since discharge from [facility]. Social History Household Members spouse Living Arrangements Other Number of Floors (Floors) Two Floors Number of Stairs To Enter/Railing? 9 with railing. Live on a boat in [facility]. Home Environment Standard Height Toilet,Walk in Shower,Tub/Shower Home Equipment Front Wheel Walker,Shower Seat without Backrest,Hand Held Shower Employment Status Retired Additional Social History Comment lives in their home in a group home community in [place]. Pt's home is single story with no stairs to enter. When in [place], pt utilizes the [facility] pool weekly to swim laps. Pt has been living on his boat in the [facility] in [facility] since February. He does not have any family in this area. M2 OT-IP Current Condition Start: 08/02/23 08:00 Freq: Status: Active Protocol: Document 08/02/23 13:25 MARICARMEN (Rec: 08/02/23 14:51 [facility] [id number]) Occupational Therapy Current Condition Current Condition Evaluation Date 08/02/23 Treatment Diagnosis acute GI bleed Diagnosis Onset Date 07/31/23 M3 OT- IP Subjective and Pain Start: 08/02/23 08:00 Freq: Status: Active Protocol: Document 08/02/23 13:25 MARICARMEN (Rec: 08/02/23 14:51 [facility] [id number]) OT- Subjective Occupational Therapy Visit Type Type Initial Evaluation Visit Start Time 13:25 Visit Stop Time 13:45 Total Visit Minutes 20 Notes Pt was pleasant, cooperative, and agreeable to participating in OT evaluation. Pt refused performing all functional t/ fs and ADLs during evaluation. Occupational Therapy Visit Comments Patient Comments Pt reports that they are working to get me home, but it 's hard because it's close to the holidays. Patient/Caregiver Goals Pt desires to d/c to his home and group home community in [place] with his spouse. OT Pain Assessment Pain When Pain Assessed At Rest Pain Present Pain Present Denied Pain M4 OT- IP ADL's Start: 08/02/23 08:00 Freq: Status: Active Protocol: Document 08/02/23 13:25 MARICARMEN (Rec: 08/02/23 14:51 [facility] [id number][facility] OT [id number] General Evaluation Self-Feeding Ability Independent Comments OT Self-Feeding Comments Not observed, however, pt with meal tray beside him and appears to have fed himself 25 % of his meal. Pt reports this is the most he has eaten in a week. OT ADL-Grooming Comments OT Grooming Comments Not observed. Pt declines performing at this time, stating that he has worked with therapy twice and is tired. OT ADL-Oral Care General Eval Oral Care Ability Standby Assistance Areas of Assistance Retrieving/Set-Up of Items Devices Oral Care Devices Toothbrush Comments Oral Care Comments Pt declined getting out of bed to perfrom oral hygiene, but expressed a desire to perform. OT set pt up with necessary items in reach. Pt performed upon setup. OT ADL-Dressing Comments OT Dressing Comments Not observed as pt declined to perform. OT ADL-Toileting Devices Toileting Assistive Devices Urinal Comments OT Toileting Comments Pt has urinal at bedside and reports I with it. No toileting observed. OT ADL-Bathing Comments OT Bathing Comments Pt says he would like a shower , but refuses to perform with therapy at this time. Pt states he's too tired. Bathing not observed. M5 OT- IP IADL's Start: 08/02/23 08:00 Freq: Status: Active Protocol: Document 08/02/23 13:25 [facility] (Rec: 08/02/23 14:51 [facility] [id number]) OT-Instrumental Activities of Daily Living Home Safety Awareness Awareness of Need for Assistance at Home Decreased Awareness Ability to Problem Solve Emergency Able to Problem Solve Situations Meal Preparation Meal Preparation Caregiver Provides Assist Mill House Supervisor Mill House Supervisor Caregiver Provides Assist M6 OT- IP Functional Cognition Start: 08/02/23 08:00 Freq: Status: Active Protocol: Document 08/02/23 13:25 [facility] (Rec: 08/02/23 14:51 [facility] [id number]) Cognitive Factors Limiting Selfcare Function Cognitive Ability Level of Alertness Alert Patient Orientation Name,Age,Place Attention Span Ability Capable of Focused Attention, Capable of Sustained Attention Ability to Follow Commands Able to Follow One Step Commands Safety Awareness Underestimates Need for Assistance OT- Vision and Hearing OT- Hearing Assessment OT- Hearing Assessment WFL OT- Vision Assessment Visual Acuity Glasses For Reading M7 OT- IP Mobility and Balance Start: 08/02/23 08:00 Freq: Status: Active Protocol: Document 08/02/23 13:25 [facility] (Rec: 08/02/23 14:51 [id number] OT-Transfer Assessment Comments Mobility Comments Pt refused to perform bed mobility and functional t/fs with OT. Please refer to PT eval and tx notes for details. OT- Gait Assessment Comments Gait Ability Comments Pt refused to perform gait with OT, please see PT eval and tx notes for details. OT- Balance Assessment Comments Other Balance Tests/Deviations/Treatment Pt's balance was not assessed : as pt refused to participate in transfers. See PT eval and notes for details. M8 OT- IP Objective Assessments Start: 08/02/23 08:00 Freq: Status: Active Protocol: Document 08/02/23 13:25 [facility] (Rec: 08/02/23 14:51 [facility] [id number]) OT Gross Range of Motion Upper Extremity Range of Motion ROM Impairments Pt reports having R total shoulder 20 years ago. Pt with limited R shoulder ROM. L shoulder and B elbow, forearm, wrist, and hands are WFL. OT Strength Upper Extremity Strength Shoulder R 2+; L 3+ Elbow B 3+ Wrist B 3+ Hand Metal Furniture Glazier Strength Hand Dominance Right OT-Muscle Tone Assessment Muscle Tone WNL Yes M9 OT- IP Assessment and Plan Start: 08/02/23 08:00 Freq: Status: Active Protocol: Document 08/02/23 13:25 MARICARMEN (Rec: 08/02/23 14:51 [facility] [id number]) OT Summary Assessment and Plan Potential Rehabilitation Potential Good Analytic Complexity at Evaluation Moderate Summary OT Impairments Strength,Balance,Functional Mobility,Grooming,Dressing, Toileting,Bathing,Toilet Transfers,Shower Transfers Progress Towards Goals Progressing Toward Goals Assessment Summary Pts BP at rest is 132/55. Pt's chart review demonstrates many episodes of orthostatic hypotension during minimal activity. Pt demonstrates muscle weakness in B UEs. Pt will benefit from skilled OT services to address strength, activity intolerance, ADLs, and functional transfers as they relate to return to [facility]. Goals Self-Feeding Goal Independent Grooming Goal Independent Dressing Goal Standby Assistance Toileting Goal Standby Assistance Bathing Goal Standby Assistance Toilet Transfer Goal Standby Assistance Shower Transfer Goal Standby Assistance Days to Meet Goals 10 Frequency of Treatment Frequency Of Treatment Once a Day Treatment Plan OT Treatment Plan ADL Training,Functional Mobility,Therapeutic Exercises ,Patient/Family Education, Discharge Planning Discharge Recommendations OT Discharge Recommendations Home vs SNF Home Equipment Needs BS or elevated commode
--- NOTE | 2023-08-02 14:20 | DI.ECHO.S_ITS ---
Version: 1 Study ID: [id number] [address] [place] [address] Name: WAQAR GREEN Study Date: 08/02/2023, 2: 54 PM : 1935 BP: 149 / 63 mmHg Gender: Male Height: 72 in Age: 87 Years Weight: 178 lb BSA: 2.03 mA? Ordering: HASEEB RAMÍREZ Referring: HASEEB RAMÍREZ Clinician: Mora Santos Reason For Study: ORTHOSTATIC HYPOTENSION History: Summary Statements Normal sinus rhythm with frequent PACs. Normal LV size and wall thickness. Normal wall motion and LV systolic function. Ejection fraction is 50-55%. Normal chamber sizes. No significant valvular abnormalities. Aneurysmal interatrial septum. Color-flow Doppler is most consistent with patent foramen ovale. No prior study available for comparison. Procedure: A two-dimensional transthoracic echocardiogram with color flow and Doppler was performed. The study quality was technically adequate. There is no prior echocardiogram noted for this patient. The heart rate ranged between 59-71 bpm during the study. The patient had frequent PACs during the exam. Left Ventricle: The left ventricle is normal in size and wall thickness. The ejection fraction is estimated to be 50-55%. Septal motion is consistent with conduction abnormality. Right Ventricle: The right ventricle is normal in size and function. Atria: The left atrial size is normal. Right atrial size is normal. Mitral Valve: The mitral valve leaflets are slightly calcified. There is mild mitral regurgitation. Aortic Valve: The aortic valve is trileaflet. The aortic valve opens well. There is no aortic valve stenosis. No aortic regurgitation is present. Tricuspid Valve: The tricuspid valve is normal in structure and function. There is mild tricuspid regurgitation. Pulmonic Valve: The pulmonic valve is not well visualized. There is a trace or physiologic amount of pulmonic regurgitation. Great Vessels: The aortic root is normal size. The dimensions of the ascending aorta are normal. The IVC is of normal diameter and collapses greater than 50% with a sniff. This suggests a low right atrial pressure of 3 mm Hg. Pericardium/ Pleura: There is no pericardial effusion. There is no pleural effusion. 2D and M-Mode Measurements and Calculations LVIDd: 5.7 cm AoV Openin.77 cm LVIDs: 4.1 cm LVOT diam: 2.04 cm IVSd: 1.07 cm Ao root diam: 3.1 cm LVPWd: 0.97 cm asc Aorta Diam: 3.1 cm LV kaplan. diameter/BSA (cm/m^2): 2.8 Ao Arch Diam (Prox Trans): 3.2 cm LV sys. diameter/BSA (cm/m^2): 2.04 RVD1 (basal): 3.6 cm RVD2 (mid): 2.6 cm TAPSE: 1.77 cm LA A4 area: 20.8 consumer product advisor? IVC diam: 1.29 cm LA A2 area: 17.2 consumer product advisor? RA area: 20.6 consumer product advisor? LA length (vol): 5.5 cm RA long axis: 5.7 cm LA vol: 55.3 ml RA vol: 62.6 ml LA vol index: 27.3 ml/mA? RA : 30.9 ml/mA? Doppler Measurements and Calculations Ao V2 max: 144.6 cm/sec LVOT Max Ernesto: 79.5 cm/sec Ao V2 mean: 100.3 cm/sec LV V1 max P.5 mmHg Ao V2 VTI: 29.4 cm LV V1 VTI: 16.0 cm Ao max P.4 mmHg SV(LVOT): 52.5 ml Ao mean P.5 mmHg MONTEZ(I,D): 1.79 consumer product advisor? MONTEZ(V,D): 1.80 consumer product advisor? MONTEZ indexed to BSA (cm^2/m^2): 0.88 sev ratio: 0.55 MV E max ernesto: 62.9 cm/sec MV dec time: 0.21 sec MV A max ernesto: 102.3 cm/sec MV E/A: 0.61 Med Peak E' Ernesto: 7.3 cm/sec Lat Peak E' Ernesto: 10.9 cm/sec E/e' average: 7.2 TR max ernesto: 263.4 cm/sec PA mean P.5 mmHg TR max P.8 mmHg PA V2 max: 105.8 cm/sec Electronically signed by: Elisabeth Cook M.D. 08/02/2023, 5: 14 PM
--- NOTE | 2023-08-02 14:20 | P.PN_ITS ---
Subjective Subjective Interval history: Patient orthostatic with PT today. Echo ordered and 500cc bolus given. Will hold on further fluid until echo back. PT rec SNF. A 16 min GOC discussion was had with patient given he may have cancer and he elected for DNR. Said I'm ok going when it's my time. Exam Vital Signs (past 8 hours): - 08/02/23 09:18 08/02/23 12:24 Temperature 98.7 F Pulse Rate 61 Respiratory Rate 16 Blood Pressure 163/72 H Blood Pressure [Orthostatic Lying] 149/63 H Blood Pressure [Orthostatic Sitting] 123/63 Pulse Oximetry 98 Oxygen Delivery Method Room Air Oxygen Flow Rate 0 Narrative Exam Narrative: GENERAL: A well nourished, well developed elderly man, resting comfortably, in no acute distress. HEENT: Normocephalic, atraumatic. No scleral icterus CHEST: Rising symmetrically. No audible wheezes CARDIOVASCULAR: Warm and well perfused. Regular rate ABDOMEN: Soft, non-tender, non-distended EXTREMITIES: Normal tone and without edema. NEUROLOGIC: Moving all extremities spontaneously. No gross motor deficits. Objective Labs 08/02/23 06:55 08/02/23 06:45 Labs: Laboratory Results - last 24 hr 08/01/23 08/01/23 08/02/23 07:38 16:37 06:45 WBC RBC Hgb Hct MCV MCH MCHC RDW Plt Count Neut % (Auto) Lymph % (Auto) Crisp % (Auto) Eos % (Auto) Baso % (Auto) Neut # (Auto) Lymph # (Auto) Crisp # (Auto) Eos # (Auto) Baso # (Auto) Sodium 132 L Potassium 3.7 Chloride 104 Carbon Dioxide 23 BUN 26 H Creatinine 1.02 Estimated GFR > 60 BUN/Creatinine Ratio 25.5 H Glucose 87 Calcium 8.4 Lipase 392 H TSH 2.21 08/02/23 06:55 WBC 5.0 RBC 3.16 L Hgb 9.8 L Hct 28.2 L MCV 89.3 MCH 30.9 MCHC 34.7 RDW 14.5 Plt Count 102 L Neut % (Auto) 70.9 Lymph % (Auto) 18.3 L Crisp % (Auto) 8.2 Eos % (Auto) 2.2 Baso % (Auto) 0.4 Neut # (Auto) 3500 Lymph # (Auto) 900 L Crisp # (Auto) 400 Eos # (Auto) 100 Baso # (Auto) 0 Sodium Potassium Chloride Carbon Dioxide BUN Creatinine Estimated GFR BUN/Creatinine Ratio Glucose Calcium Lipase TSH PFSH Social History household members: none Smoking Status: Never smoker alcohol intake: former Assessment & Plan Assessment and plan (1) Acute GI bleeding: Problem details: H&H stable. 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 Biopsies pending Rec f/up at [facility] in [place] where patient lives Hgb stable Aspirin stopped Can stop PPI (2) HTN (hypertension): Status: Acute Plan: Hold amlodipine, Bumex and losartan for now Monitor blood pressure closely (3) Hyperlipidemia: Status: Acute Plan: Restart atorvastatin (4) GERD (gastroesophageal reflux disease): Status: Acute Plan: Continue PPI Antiemetics as needed (5) Dementia: Status: Acute Plan: Restart donepezil (6) Diabetes mellitus: Status: Acute Plan: Monitor blood sugar closely SSI Hold oral antidiabetic medications for now (7) Closed compression fracture of L4 vertebra: Status: Inactive Plan: Pain medications as needed. (8) Orthostatic hypotension: Status: Acute Plan: Patient dizzy when standing. Orthostatic positive. Gave 500cc bolus on 08/02 and echo ordered given h/o of CABG and no known CHF. Will hold metoprolol and amlodipine for now to see if this improves his orthostatics. Continue orthos qshift. Plan Dispo: Pending SNF. Time Spent With Patient Time with patient: 50 to 69 minutes with 50% spent counseling/coordinating care Quality VTE Deep Vein Thrombosis/Pulmonary Embolism Present on Admission: No
[2023-08-02] MEDS: SODIUM CHLORIDE 0.9% 500 ML IV (14:36)
[2023-08-02 21:00] VITALS: BP 131/83; BP 136/88; PULSE 56; PULSE 64
[2023-08-03 06:13] LABS: Add Manual Diff / Slide Review NO; Basophils Absolute Auto 0 /uL (0-100); Basophils Percent Auto 0.5 % (0-2); Eosinophils Absolute Auto 300 /uL (0-450); Eosinophils Percent Auto 6.6 % (2-4); Hematocrit 29.3 % (41-53); Hemoglobin 10.2 g/dL (13.5-17.5); Lymphocytes Absolute Auto 1000 /uL (1100-4500); Lymphocytes Percent Auto 20.9 % (25-40); Mean Corpuscular HGB Conc 34.7 % (30-36); Mean Corpuscular Hemoglobin 30.7 PG (26-34); Mean Corpuscular Volume 88.3 fL (80-100); Monocytes Absolute Auto 500 /uL (0-900); Monocytes Percent Auto 10.2 % (3-14); Neutrophils Absolute Auto 3100 /uL (1500-7000); Neutrophils Percent Auto 61.8 % (50-75); Platelet Count 119 X10^3/uL (150-400); Red Blood Cell Count 3.32 X10^6/uL (4.5-5.9); Red Cell Distribution Width 14.1 % (11.6-14.8)
[2023-08-03 06:22] LABS: BUN Creatinine Ratio 19.1 (6-22); Blood Urea Nitrogen 17 mg/dL (9-20); Calcium 8.4 mg/dL (8.4-10.2); Carbon Dioxide 25 mmol/L (22-32); Chloride 103 mmol/L (98-107); Estimated Glomerular Filt Rate > 60 mL/min (>60); Glucose 95 mg/dL (80-110); HEMOLYSIS < 15 (0-50); Sodium 131 mmol/L (137-145)
[2023-08-03] MEDS: DONEPEZIL 5 MG TABLET 10 MG PO (08:28)
[2023-08-03] MEDS: DULOXETINE 30 MG CAPSULE PO (08:28)
[2023-08-03] MEDS: ATORVASTATIN 20 MG TABLET 80 MG PO (08:28)
[2023-08-03] MEDS: SODIUM CHLORIDE 0.9% FLUSH 10 ML IV ×2 (08:29→20:50)
[2023-08-03 09:05] VITALS: BP 140/58; PULSE 61; RESP 18; TEMP 37.2; O2SAT 99
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
--- NOTE | 2023-08-03 11:31 | PT.IPTN ---
Current Diagnoses Type 2 diabetes mellitus without complications (07/31/23) Hyperlipidemia, unspecified (07/31/23) Unspecified dementia, unspecified severity, without behavioral disturbance, psychotic disturbance, mood disturbance, and anxiety (07/31/23) Essential (primary) hypertension (07/31/23) Orthostatic hypotension (07/31/23) Gastro-esophageal reflux disease without esophagitis (07/31/23) Gastrointestinal hemorrhage, unspecified (07/31/23) Wedge compression fracture of fourth lumbar vertebra, initial encounter for closed fracture (07/31/23) Surgery Performed Operation Date: 08/01/23 15:00 Actual Procedures p Esophagogastroduodenoscopy with biopsy - Roland Antonio MD Physical Therapy Treatment Note M2 PT-IP Current Condition Start: 08/02/23 12:05 Freq: NEEDED Status: Active Protocol: Document 08/02/23 12:14 KJ (Rec: 08/02/23 12:33 KJ [id number]) Physical Therapy Current Condition Current Condition Evaluation Date 08/02/23 Treatment Diagnosis impaired mobility, Poor activity tolerance Onset Date June 2023 M3 PT-IP Subjective Start: 08/02/23 12:05 Freq: NEEDED Status: Active Protocol: Document 08/03/23 12:36 ZF (Rec: 08/03/23 12:55 ZF [id number]) Subjective Physical Therapy Visit Type Type Treatment Note Visit Start Time 11:31 Visit Stop Time 11:58 Total Visit Minutes 27 Number of RUNNER MAN Visits 1 Physical Therapy Visit Comments Patient Comments Pt lying in bed when approached for therapy. Pt hesitant to participate, initially declines getting OOB reporting increasing weakness . Therapy Pain Assessment Pain Present Pain Present Pain Reported Location Abdomen Description Aching Pain Behaviors Facial Grimacing,Guarding Pain Management Techniques Distraction,Re-positioning M4 PT-IP Mobility and Gait Start: 08/02/23 12:05 Freq: NEEDED Status: Active Protocol: Document 08/03/23 12:36 ZF (Rec: 08/03/23 12:55 ZF [id number]) PT-Bed Mobility Assessment Rolling Type of Rolling Log Rolling Level of Assist Minimal Assistance Supine to Sit Supine to Sit Minimal Assistance Sit to Supine Sit to Supine Standby Assistance Scooting Scooting to Edge of Bed Minimal Assistance Scooting Up and Down in Bed Moderate Assistance PT-Transfer Assessment Comments Mobility Comments Pt initially declines getting OOB, agreeable to supine TE. Pt completes ankle pumps, hip/ knee flexion, Hip abd x10 reps . BP monitored: 133/58. Pt educated on importance of getting OOB to build strength and tolerance for OOB time and for pressure relief. Pt agreeable. Supine>Sitting EOB Manpreet w/VC for log roll. Pt tolerates <10 mins of sitting EOB. Completes seated LAQ, ankle pumps. BP monitored in sittin/68. Pt requests getting back to bed. Gait Assessment Gait Distance (Feet) 0 Factors Limiting Gait Function Factors Limiting Gait Function Decreased Activity Tolerance, Decreased Strength,Poor Balance,Poor Safety Awareness Comments Gait Comments Pt declines amb today. Reports that he's too weak to stand. Stair Climbing Assessment Comments Stair Climbing Comments Did not attempt stairs this session. PT-Balance Assessment Sitting Balance and Reactions Static Sitting Balance Ability Good Dynamic Sitting Balance Ability Good M5 PT-IP Objective Assessments Start: 08/02/23 12:05 Freq: NEEDED Status: Active Protocol: Document 08/02/23 12:14 KJ (Rec: 08/02/23 12:33 KJ [id number]) Orientation Orientation/Cognition Level of Alertness Alert Orientation Name,Age,Birthday,Place Language Function Ability No Deficits Noted Safety Awareness Decreased Safety Awareness Comments Pt is unaware of the safety concerns in his present living situation, and his lack of available assistance from friends/family. Gross Range of Motion Upper Extremity ROM Assessment Right Impaired Impairments R shoulder very limited. Pt is s/p R total shoulder arthroplasty, due to an injury when he fell on a boat and his shoulder was crushed. R elbow, wrist, and hand are WNL. LUE is WNL. Lower Extremity ROM Assessment Within Functional Limits Strength Upper Extremity Strength Assessment Right Impaired Shoulder r shoulder not tested due to limitations in ROM Elbow 5/5 Wrist 5/5 Hand 5/5 Lower Extremity Strength Assessment Within Functional Limits Coordination Assessment Gross Coordination Gross Coordination WNL Muscle Tone Muscle Tone WNL Yes Other Assessments Other Other Assessments Pt is kyphotic through the spine M6 PT-IP Treatment Start: 08/02/23 12:05 Freq: NEEDED Status: Active Protocol: Document 08/03/23 12:36 ZF (Rec: 08/03/23 12:55 ZF [id number]) Physical Therapy Treatment Education Education Provided Safety M7 PT-IP Assessment and Plan Start: 08/02/23 12:05 Freq: NEEDED Status: Active Protocol: Document 08/03/23 12:36 DRE (Rec: 08/03/23 12:55 [id number]) PT Summary Assessment and Plan Potential Rehabilitation Potential Fair Summary Impairments Pain,Cognition,Bed Mobility, Transfers,Gait,Activity Tolerance Assessment Summary Pt participation limited by weakness and fatigue today. He reports that he's getting weaker and expresses concern about this. Pt declines OOB activity today, agreeable to supine TE and sitting EOB. Requires Manpreet for BM. Pt tolerates <10 mins of sitting. BP remained stable w/sitting EOB. Goals Bed Mobility Goal Independent Transfer Goal Independent Gait Goal Independent Gait Distance 150' w/fww on level surface Other Goals Ascend/descend 9 steps with rail and sba Frequency of Treatment Frequency Of Treatment Once a Day Treatment Plan Physical Therapy Treatment Plan Bed Mobility Training,Transfer Training,Gait Training, Therapeutic Exercise Other Recommendations and Next Treatment Therapeutic Activity Focus Weight Bearing Status Weight Bearing Status Full Weight Bearing Recommendations To Nursing Amount of Assist Needed 1 Person Assist Discharge Recommendations PT Discharge Recommendations Home with 13/03 Assist Available,Home Health,SNF Rehab Transportation Needs at Discharge Private Vehicle,Wheelchair/ Cabulance
[2023-08-03 11:59] VITALS: BP 133/58; BP 136/68; PULSE 68; PULSE 74
[2023-08-03] MEDS: INSULIN LISPRO 100 UNIT/ML 3ML VIAL SUBCUT (12:03)
[2023-08-03 13:29] VITALS: BP 137/66; PULSE 75; RESP 18; TEMP 36.4; O2SAT 98
--- NOTE | 2023-08-03 13:31 | CM.DPC ---
DCP Cont: Per MD, pt stabilizing but will need ongoing outpt care after discharge and need to determine safe discharge plan from the hospital. Per PT, not recommending return to his boat and pt's orthostatics have limited him on his ability to participate and SNF vs 13/03. SW met bedside with pt and his grandson from [facility] and they both confirm they are currently working on a plan for pt to discharge with family assist and go directly back to [place] at discharge. Pt confirms he does not plan to go to his boat or to SNF here locally. Grandson assisting in the planning and coordination of care with family and they were able to provide pt's spouse Sherri's contact [phone] and pt's Dtr Codie Salcido [phone]. Pt requested SW come back later after they have a better sense of a plan and SW provided Care Mangement number in case family has questions before that as well. SW confirmed that pt feels he could tolerate sitting and transfer to w/c currently and that he feels he could manage a plane that way to get home but was just hopeful he could ambulate more today. SW received a call from pt's CM with [employer] [phone] inquiring if there is anything she can help with and SW called her back and left detailed msg stating currently the need would be for pt to have info on outpt f/u providers contracted with his insurance for the mass and likely HH PT etc for Plan: SW to follow closely for family discussion to determine plan for pt discharge from the hospital directly back to [place] for ongoing outpt care. TIFFANIE Jacob
[2023-08-03 16:15] VITALS: BP 118/75; BP 137/66; BP 99/57; PULSE 105
--- NOTE | 2023-08-03 16:59 | DIET.PN1 ---
Dietary Progress Note Assessment: 87M admitted r/t several days of melena. also reported constipation, dizziness, lightheaded, poor appetite, and poor oral intake. 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 RD screened pt due to MNA of 9 indicating risk of malnutrition. Per EMR wt hx, pt lost 21kg over one month (21% severe). After discussion with pt, he reports a UBW of 89kg, which he thinks is a likely wt one month ago. This would indicate an 8kg loss over one month (9% severe). Reports very poor PO over the last month with mostly bites of vegetables though the day. Predicted <50-75% EER over the last month based on this (severe). States his poor appetite originated after back fx necessitating pain medications that impacted his BM (constipation) and appetite. Ht: 182.88 cm Wt: 80.739 kg BMI: 24.1 UBW: 89kg Last BM: 07/30/23 (08/01/23 12:01) MNA: 9 Sherwin Score: 21 Diet: 08/02/23 Breakfast General (Regular) Diet Diet Modifications: Food Texture: Level 7 - Regular Liquid Consistency: Level 0 - Thin Nutrition Percent Meal Consumed 50% 08/03/23 09:07 Percent Meal Consumed 50% 08/02/23 14:00 Labs: RBC 3.32 X10^6/uL (4.5-5.9) L 08/03/23 05:00 Hgb 10.2 g/dL (13.5-17.5) L 08/03/23 05:00 Hct 29.3 % (41-53) L 08/03/23 05:00 Creatinine 0.89 mg/dL (0.66-1.25) 08/03/23 05:00 Nutrition Diagnosis: Acute severe protein calorie malnutrition r/t inadequate oral intake aeb >5% weight loss and predicted <75% EER for one month. -The patient is at much higher risk for medical and surgical complications because of his malnutrition.? This increases the difficulty and complexity of medical and surgical interventions and increases the chances of poor outcomes such as morbidity and mortality. Interventions: Daily protein shake-- Gaudencio requested strawberry shake EER: 2200-2300kcal (28-29 kcal/kg per BMI) 120-145g Pro (1.5-1.8g/kg per PCM) Monitoring/Evaluations: RD f/u 3-5 days Electronically Signed by: Yaneli Cain 08/03/23 16:59 Clinical Dietitian [address] [address]
--- NOTE | 2023-08-03 17:28 | P.HP_ITS ---
History of Present Illness History of Present Illness Date Patient Seen: 08/03/23 Time Patient Seen: 17:00 Chief complaint: back pain, dizzy Narrative: 87 years old male with history of hyperlipidemia, diabetes mellitus type 2, depression, anxiety, history of pancreatitis, recent thoracic compression fracture, GERD, history of CABG, mild dementia, CAD, presented to the ER with shortness of breath. Amitted for pneumonia requiring hi flow oxygen to maintain oxygen saturations. [facility] Social History household members: spouse Smoking Status: Never smoker alcohol intake: former Meds Home Medications and Allergies Home Medications Medication Instructions Recorded Confirmed Type atorvastatin 80 mg tablet 80 mg PO DAILY 02/09/22 07/31/23 History donepezil 10 mg tablet 10 mg PO DAILY 02/09/22 07/31/23 History metoprolol succinate 25 mg 100 mg PO DAILY 02/09/22 07/31/23 History tablet,extended release 24 hr tamsulosin 0.4 mg capsule 0.4 mg PO BEDTIME 02/09/22 07/31/23 History meloxicam 7.5 mg tablet 7.5 mg PO BID PRN pain #10 tabs 07/05/23 07/31/23 Rx amlodipine 10 mg tablet 10 mg PO DAILY 07/31/23 07/31/23 History bumetanide 1 mg tablet 1 mg PO DAILY 07/31/23 07/31/23 History duloxetine 30 mg capsule,delayed 30 mg PO DAILY 07/31/23 07/31/23 History release empagliflozin 10 mg tablet 10 mg PO DAILY 07/31/23 07/31/23 History (Jardiance) losartan 100 mg tablet 100 mg PO DAILY 07/31/23 07/31/23 History oxycodone 5 mg tablet 5 mg PO 4XD PRN Pain (Scale Score 07/31/23 07/31/23 History 4-6) trazodone 100 mg tablet 100 mg PO ONCE PM 07/31/23 07/31/23 History Allergies Allergy/AdvReac Type Severity Reaction Status Date / Time No Known Drug Allergies Allergy Verified 07/31/23 15:39 Exam Vital Signs (past 8 hours): - 08/03/23 11:59 08/03/23 13:29 08/03/23 16:15 Temperature 97.5 F L Pulse Rate 75 Pulse Rate [Orthostatic Lying] 74 Pulse Rate [Orthostatic Sitting] 68 Pulse Rate [Orthostatic Standing] 105 H Respiratory Rate 18 Blood Pressure 137/66 Blood Pressure [Orthostatic Lying] 136/68 137/66 Blood Pressure [Orthostatic Sitting] 133/58 L 118/75 Blood Pressure [Orthostatic Standing] 99/57 L Pulse Oximetry 98 Oxygen Delivery Method Room Air Oxygen Flow Rate 0 Objective Labs 08/03/23 05:00 08/03/23 05:00 Labs: Laboratory Results - last 24 hr 08/03/23 05:00 WBC 5.0 RBC 3.32 L Hgb 10.2 L Hct 29.3 L MCV 88.3 MCH 30.7 MCHC 34.7 RDW 14.1 Plt Count 119 L Neut % (Auto) 61.8 Lymph % (Auto) 20.9 L [place] % (Auto) 10.2 Eos % (Auto) 6.6 H Baso % (Auto) 0.5 Neut # (Auto) 3100 Lymph # (Auto) 1000 L [place] # (Auto) 500 Eos # (Auto) 300 Baso # (Auto) 0 Sodium 131 L Potassium 4.0 Chloride 103 Carbon Dioxide 25 BUN 17 Creatinine 0.89 Estimated GFR > 60 BUN/Creatinine Ratio 19.1 Glucose 95 Calcium 8.4 Quality VTE Deep Vein Thrombosis/Pulmonary Embolism Present on Admission: No
--- NOTE | 2023-08-03 17:36 | P.PN_ITS ---
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 He lives alone on a boat, and therapy is concerned about his safety with those living conditions and his weakness due to his illness. Currently attempting to get a better plan with regards to him returning to [place] for further evaluation and management of his gastric mass. Exam Vital Signs (past 8 hours): - 08/03/23 11:59 08/03/23 13:29 08/03/23 16:15 Temperature 97.5 F L Pulse Rate 75 Pulse Rate [Orthostatic Lying] 74 Pulse Rate [Orthostatic Sitting] 68 Pulse Rate [Orthostatic Standing] 105 H Respiratory Rate 18 Blood Pressure 137/66 Blood Pressure [Orthostatic Lying] 136/68 137/66 Blood Pressure [Orthostatic Sitting] 133/58 L 118/75 Blood Pressure [Orthostatic Standing] 99/57 L Pulse Oximetry 98 Oxygen Delivery Method Room Air Oxygen Flow Rate 0 Narrative Exam Narrative: GENERAL: A well nourished, well developed elderly man, resting comfortably, in no acute distress. HEENT: Normocephalic, atraumatic. No scleral icterus CHEST: Rising symmetrically. No audible wheezes CARDIOVASCULAR: Warm and well perfused. Regular rate ABDOMEN: Soft, non-tender, non-distended EXTREMITIES: Normal tone and without edema. NEUROLOGIC: Moving all extremities spontaneously. No gross motor deficits. Objective Labs 08/03/23 05:00 08/03/23 05:00 Labs: Laboratory Results - last 24 hr 08/03/23 05:00 WBC 5.0 RBC 3.32 L Hgb 10.2 L Hct 29.3 L MCV 88.3 MCH 30.7 MCHC 34.7 RDW 14.1 Plt Count 119 L Neut % (Auto) 61.8 Lymph % (Auto) 20.9 L [place] % (Auto) 10.2 Eos % (Auto) 6.6 H Baso % (Auto) 0.5 Neut # (Auto) 3100 Lymph # (Auto) 1000 L [place] # (Auto) 500 Eos # (Auto) 300 Baso # (Auto) 0 Sodium 131 L Potassium 4.0 Chloride 103 Carbon Dioxide 25 BUN 17 Creatinine 0.89 Estimated GFR > 60 BUN/Creatinine Ratio 19.1 Glucose 95 Calcium 8.4 PFSH Social History household members: spouse Smoking Status: Never smoker alcohol intake: former Assessment & Plan Assessment and plan (1) Acute GI bleeding: Problem details: H&H stable. 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 Biopsies pending Rec f/up at [facility] in [place] where patient lives Hgb stable Aspirin stopped IV PPI stopped, will continue oral dosing daily. (2) HTN (hypertension): Status: Acute Plan: Hold amlodipine, Bumex and losartan for now Monitor blood pressure closely (3) Hyperlipidemia: Status: Acute Plan: Continue atorvastatin (4) GERD (gastroesophageal reflux disease): Status: Acute Plan: Continue PPI Antiemetics as needed (5) Dementia: Status: Acute Plan: Restarted donepezil (6) Diabetes mellitus: Status: Acute Plan: Monitor blood sugar closely SSI Hold oral antidiabetic medications for now (7) Closed compression fracture of L4 vertebra: Status: Inactive Plan: Pain medications as needed. (8) Orthostatic hypotension: Problem details: Resolved Status: Acute Plan: Patient dizzy when standing. Orthostatic positive. Gave 500cc bolus on 08/02 and echo ordered given h/o of CABG and no known CHF. Held amlodipine but now resumed, and have resumed home metoprolol. Plan Dispo: Pending SNF. Assessment & Plan narrative: Dispo: pending safe discharge plan Time Spent With Patient Time with patient: 50 to 69 minutes with 50% spent counseling/coordinating care Quality VTE Deep Vein Thrombosis/Pulmonary Embolism Present on Admission: No
[2023-08-03] MEDS: TRAZODONE 50 MG TABLET 100 MG PO (20:50)
[2023-08-04 00:47] VITALS: BP 146/66; PULSE 87; RESP 20; TEMP 36.3; O2SAT 98
[2023-08-04 04:40] VITALS: BP 132/59; PULSE 85; RESP 20; TEMP 36.5; O2SAT 98
[2023-08-04 05:51] LABS: Add Manual Diff / Slide Review NO; Basophils Absolute Auto 0 /uL (0-100); Basophils Percent Auto 0.4 % (0-2); Eosinophils Absolute Auto 400 /uL (0-450); Hematocrit 29.7 % (41-53); Hemoglobin 10.3 g/dL (13.5-17.5); Lymphocytes Absolute Auto 1200 /uL (1100-4500); Lymphocytes Percent Auto 23.9 % (25-40); Mean Corpuscular HGB Conc 34.9 % (30-36); Mean Corpuscular Hemoglobin 30.9 PG (26-34); Mean Corpuscular Volume 88.7 fL (80-100); Monocytes Absolute Auto 600 /uL (0-900); Monocytes Percent Auto 12.2 % (3-14); Neutrophils Absolute Auto 2700 /uL (1500-7000); Neutrophils Percent Auto 55.5 % (50-75); Platelet Count 126 X10^3/uL (150-400); Red Blood Cell Count 3.35 X10^6/uL (4.5-5.9); Red Cell Distribution Width 13.9 % (11.6-14.8); White Blood Cell Count 4.9 X10^3/uL (4.5-11.0)
[2023-08-04 06:10] LABS: BUN Creatinine Ratio 15.6 (6-22); Blood Urea Nitrogen 14 mg/dL (9-20); Calcium 8.5 mg/dL (8.4-10.2); Carbon Dioxide 26 mmol/L (22-32); Chloride 103 mmol/L (98-107); Estimated Glomerular Filt Rate > 60 mL/min (>60); Glucose 101 mg/dL (80-110); HEMOLYSIS < 15 (0-50); Magnesium 1.9 mg/dL (1.6-2.3); Potassium 3.7 mmol/L (3.4-5.1); Sodium 130 mmol/L (137-145)
[2023-08-04] MEDS: PANTOPRAZOLE DR 40 MG TABLET PO (06:15)
[2023-08-04 08:58] VITALS: BP 129/53; PULSE 68; RESP 18; TEMP 36.1; O2SAT 96
[2023-08-04] MEDS: DONEPEZIL 5 MG TABLET 10 MG PO (09:09)
[2023-08-04] MEDS: SODIUM CHLORIDE 0.9% FLUSH 10 ML IV ×2 (09:10→22:16)
[2023-08-04] MEDS: ATORVASTATIN 20 MG TABLET 80 MG PO (09:10)
[2023-08-04] MEDS: DULOXETINE 30 MG CAPSULE PO (09:10)
--- NOTE | 2023-08-04 10:27 | PT.IPTN ---
Current Diagnoses Type 2 diabetes mellitus without complications (07/31/23) Hyperlipidemia, unspecified (07/31/23) Unspecified dementia, unspecified severity, without behavioral disturbance, psychotic disturbance, mood disturbance, and anxiety (07/31/23) Essential (primary) hypertension (07/31/23) Orthostatic hypotension (07/31/23) Gastro-esophageal reflux disease without esophagitis (07/31/23) Gastrointestinal hemorrhage, unspecified (07/31/23) Wedge compression fracture of fourth lumbar vertebra, initial encounter for closed fracture (07/31/23) Surgery Performed Operation Date: 08/01/23 15:00 Actual Procedures p Esophagogastroduodenoscopy with biopsy - Roland Antonio MD Physical Therapy Treatment Note M2 PT-IP Current Condition Start: 08/02/23 12:05 Freq: NEEDED Status: Active Protocol: Document 08/02/23 12:14 KJ (Rec: 08/02/23 12:33 KJ [id number]) Physical Therapy Current Condition Current Condition Evaluation Date 08/02/23 Treatment Diagnosis impaired mobility, Poor activity tolerance Onset Date June 2023 M3 PT-IP Subjective Start: 08/02/23 12:05 Freq: NEEDED Status: Active Protocol: Document 08/04/23 11:13 TS (Rec: 08/04/23 11:26 TS [id number]) Subjective Physical Therapy Visit Type Type Treatment Note Visit Start Time 10:27 Visit Stop Time 11:10 Total Visit Minutes 43 Number of JUNIOR WEB DEVELOPER Visits 2 Physical Therapy Visit Comments Patient Comments Pt found in bed, reports he is going back to his boat today and will have a w/c transport valeria to his boat. Pt reports having stairs into boat and the person taking him in the w /c will help him get in, pt declined to try stairs with therapist. Pt is agreeablet o walk in room. Therapy Pain Assessment Pain When Pain Assessed During Mobility Pain Present Pain Present Pain Reported M4 PT-IP Mobility and Gait Start: 08/02/23 12:05 Freq: NEEDED Status: Active Protocol: Document 08/04/23 11:13 TS (Rec: 08/04/23 11:26 TS [id number]) PT-Bed Mobility Assessment Supine to Sit Supine to Sit Standby Assistance Scooting Scooting to Edge of Bed Standby Assistance PT-Transfer Assessment Sit to and From Stand Sit to and from Stand Standby Assistance,Use of Upper Extremities Equipment Transfer Assistive Device Gait Belt,Front Wheeled Walker Comments Mobility Comments Bp in supine 122/56. Supine to sit SBA with BUE support, pt cued for pushing onto elbows, declined any help from therapist. Pt sat EOB with good balance and flexed trunk, BP in sitting 142/61. Sit to stand with FWW SBA with cues for feet underneath him, BP in standing 131/61. Pt ambulated in room ~50' SBA with FWW and quick pacing gait. Pt somewhat fatigued and requested to sit in chair. Hospitaltist came into room to discuss care with pt. Pt requested to walk more, he ambulated another ~50' with FWW and sat back in chair. Pt had many questions about what ex he can do at home and about using a back brace. Pt was left in chair, all needs met, chair alarm on. Gait Assessment Gait Gait Assistance Required: Standby Assistance Distance (Feet) 100 Assistive Devices Assistive Device Front Wheeled Walker Factors Limiting Gait Function Factors Limiting Gait Function Decreased Activity Tolerance, Decreased Strength,Poor Balance,Poor Safety Awareness Comments Gait Comments See mobility comments Stair Climbing Assessment Comments Stair Climbing Comments Pt declined to do stairs. PT-Balance Assessment Sitting Balance and Reactions Static Sitting Balance Ability Good Dynamic Sitting Balance Ability Good Standing Balance and Reactions Static Standing Balance Ability Good Dynamic Standing Balance Ability Fair Device Used FWW M5 PT-IP Objective Assessments Start: 08/02/23 12:05 Freq: NEEDED Status: Active Protocol: Document 08/02/23 12:14 KJ (Rec: 08/02/23 12:33 KJ [id number]) Orientation Orientation/Cognition Level of Alertness Alert Orientation Name,Age,Birthday,Place Language Function Ability No Deficits Noted Safety Awareness Decreased Safety Awareness Comments Pt is unaware of the safety concerns in his present living situation, and his lack of available assistance from friends/family. Gross Range of Motion Upper Extremity ROM Assessment Right Impaired Impairments R shoulder very limited. Pt is s/p R total shoulder arthroplasty, due to an injury when he fell on a boat and his shoulder was crushed. R elbow, wrist, and hand are WNL. LUE is WNL. Lower Extremity ROM Assessment Within Functional Limits Strength Upper Extremity Strength Assessment Right Impaired Shoulder r shoulder not tested due to limitations in ROM Elbow 5/5 Wrist 5/5 Hand 5/5 Lower Extremity Strength Assessment Within Functional Limits Coordination Assessment Gross Coordination Gross Coordination WNL Muscle Tone Muscle Tone WNL Yes Other Assessments Other Other Assessments Pt is kyphotic through the spine M6 PT-IP Treatment Start: 08/02/23 12:05 Freq: NEEDED Status: Active Protocol: Document 08/04/23 11:13 TS (Rec: 08/04/23 11:26 TS [id number]) Physical Therapy Treatment Education Education Provided Safety M7 PT-IP Assessment and Plan Start: 08/02/23 12:05 Freq: NEEDED Status: Active Protocol: Document 08/04/23 11:13 TS (Rec: 08/04/23 11:26 TS [id number]) PT Summary Assessment and Plan Potential Rehabilitation Potential Fair Summary Impairments Pain,Cognition,Bed Mobility, Transfers,Gait,Activity Tolerance Progress Towards Goals Progressing Toward Goals Assessment Summary Gaudencio is making some progress with his mobility. He is SBA for bed mobility with use of BUE support. He is SBA for sit to stands and demonstrates good standing balance. He progressed his gait to ~100' SBA with use of FWW, pt does have his own FWW in room. Pt had no complaints of feeling dizzy or lightheaded this session like in previous days, BP was unremarkable. PT is recommending pt return home with assistance and HHPT. Pt plans on going back to boat with w/c transport and will be on his own. Goals Bed Mobility Goal Independent Transfer Goal Independent Gait Goal Independent Gait Distance 150' w/fww on level surface Other Goals Ascend/descend 9 steps with rail and sba Frequency of Treatment Frequency Of Treatment Once a Day Treatment Plan Physical Therapy Treatment Plan Bed Mobility Training,Transfer Training,Gait Training, Therapeutic Exercise Other Recommendations and Next Treatment Therapeutic Activity Focus Weight Bearing Status Weight Bearing Status Full Weight Bearing Recommendations To Nursing Amount of Assist Needed Standby Assistance Discharge Recommendations PT Discharge Recommendations Home with Assistance,Home Health Transportation Needs at Discharge Private Vehicle,Wheelchair/ Cabulance
[2023-08-04 12:22] VITALS: BP 147/64; PULSE 86; RESP 19; TEMP 36.1; O2SAT 96
--- NOTE | 2023-08-04 12:29 | CM.DPC ---
DCP Cont. Update-spoke with pt's and dtr, family are flying in from [place] early tomorrow am, will p/u pt at 12:30-1:00 to take him back to [place].
--- NOTE | 2023-08-04 13:30 | P.PN_ITS ---
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 He lives alone on a boat, and therapy is concerned about his safety with those living conditions and his weakness due to his illness. Currently attempting to get a better plan with regards to him returning to [place] for further evaluation and management of his gastric mass. Currently plan is for him to fly to [place] tomorrow with family. Exam Vital Signs (past 8 hours): - 08/04/23 08:58 08/04/23 12:22 Temperature 97 F L 97 F L Pulse Rate 68 86 Respiratory Rate 18 19 Blood Pressure 129/53 L 147/64 H Pulse Oximetry 96 96 Oxygen Flow Rate 0 0 Oxygen Delivery Method Room Air Oxygen Flow Rate 0 Narrative Exam Narrative: GENERAL: A well nourished, well developed elderly man, resting comfortably, in no acute distress. HEENT: Normocephalic, atraumatic. No scleral icterus CHEST: Rising symmetrically. No audible wheezes CARDIOVASCULAR: Warm and well perfused. Regular rate ABDOMEN: Soft, non-tender, non-distended EXTREMITIES: Normal tone and without edema. NEUROLOGIC: Moving all extremities spontaneously. No gross motor deficits. Objective Labs 08/04/23 05:43 08/04/23 05:43 Labs: Laboratory Results - last 24 hr 08/04/23 05:43 WBC 4.9 RBC 3.35 L Hgb 10.3 L Hct 29.7 L MCV 88.7 MCH 30.9 MCHC 34.9 RDW 13.9 Plt Count 126 L Neut % (Auto) 55.5 Lymph % (Auto) 23.9 L [place] % (Auto) 12.2 Eos % (Auto) 8.0 H Baso % (Auto) 0.4 Neut # (Auto) 2700 Lymph # (Auto) 1200 [place] # (Auto) 600 Eos # (Auto) 400 Baso # (Auto) 0 Sodium 130 L Potassium 3.7 Chloride 103 Carbon Dioxide 26 BUN 14 Creatinine 0.90 Estimated GFR > 60 BUN/Creatinine Ratio 15.6 Glucose 101 Calcium 8.5 Magnesium 1.9 PFSH Social History household members: spouse Smoking Status: Never smoker alcohol intake: former Assessment & Plan Assessment and plan (1) Acute GI bleeding: Problem details: H&H stable. 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 (2) HTN (hypertension): Status: Acute Plan: Held amlodipine and metoprolol initially, now restarted Monitor blood pressure closely (3) Hyperlipidemia: Status: Acute Plan: Continue atorvastatin (4) GERD (gastroesophageal reflux disease): Status: Acute Plan: Continue PPI Antiemetics as needed (5) Dementia: Status: Acute Plan: Restarted donepezil (6) Diabetes mellitus: Status: Acute Plan: Monitor blood sugar closely SSI Hold oral antidiabetic medications for now (7) Closed compression fracture of L4 vertebra: Status: Inactive Plan: Pain medications as needed. (8) Orthostatic hypotension: Problem details: Resolved Status: Acute Plan: Patient dizzy when standing. Orthostatic positive. Gave 500cc bolus on 08/02 and echo ordered given h/o of CABG and no known CHF. Held amlodipine but now resumed, and have resumed home metoprolol. Orthostatics resolved. Plan Dispo: Pending SNF. Assessment & Plan narrative: Dispo: pending safe discharge plan, likely to discharge with family to [place] tomorrow. Time Spent With Patient Time with patient: 50 to 69 minutes with 50% spent counseling/coordinating care Quality VTE Deep Vein Thrombosis/Pulmonary Embolism Present on Admission: No
[2023-08-04 16:15] VITALS: BP 132/54; PULSE 82; RESP 20; TEMP 36.6; O2SAT 96
[2023-08-04 16:39] VITALS: BP 119/51; BP 121/54; BP 126/57; PULSE 102; PULSE 105; PULSE 85
[2023-08-04] MEDS: INSULIN LISPRO 100 UNIT/ML 3ML VIAL SUBCUT (17:13)
[2023-08-04] MEDS: TRAZODONE 50 MG TABLET 100 MG PO (22:15)
[2023-08-05 00:06] VITALS: BP 127/56; PULSE 79; RESP 16; TEMP 37.1; O2SAT 95
[2023-08-05] MEDS: PANTOPRAZOLE DR 40 MG TABLET PO (06:29)
[2023-08-05 06:41] LABS: Add Manual Diff / Slide Review NO; Basophils Absolute Auto 0 /uL (0-100); Basophils Percent Auto 0.4 % (0-2); Eosinophils Absolute Auto 400 /uL (0-450); Eosinophils Percent Auto 8.8 % (2-4); Hematocrit 28.3 % (41-53); Hemoglobin 9.8 g/dL (13.5-17.5); Lymphocytes Absolute Auto 900 /uL (1100-4500); Lymphocytes Percent Auto 18.3 % (25-40); Mean Corpuscular HGB Conc 34.7 % (30-36); Mean Corpuscular Hemoglobin 30.6 PG (26-34); Mean Corpuscular Volume 88.2 fL (80-100); Monocytes Absolute Auto 700 /uL (0-900); Neutrophils Absolute Auto 2800 /uL (1500-7000); Neutrophils Percent Auto 58.5 % (50-75); Platelet Count 145 X10^3/uL (150-400); Red Blood Cell Count 3.21 X10^6/uL (4.5-5.9); Red Cell Distribution Width 14.2 % (11.6-14.8); White Blood Cell Count 4.8 X10^3/uL (4.5-11.0)
[2023-08-05 06:46] LABS: BUN Creatinine Ratio 15.6 (6-22); Blood Urea Nitrogen 14 mg/dL (9-20); Calcium 8.2 mg/dL (8.4-10.2); Carbon Dioxide 26 mmol/L (22-32); Chloride 102 mmol/L (98-107); Estimated Glomerular Filt Rate > 60 mL/min (>60); Glucose 115 mg/dL (80-110); HEMOLYSIS < 15 (0-50); Magnesium 1.7 mg/dL (1.6-2.3); Potassium 3.7 mmol/L (3.4-5.1); Sodium 131 mmol/L (137-145)
[2023-08-05 08:00] VITALS: BP 147/65; PULSE 76; RESP 19; TEMP 36.2; O2SAT 99
[2023-08-05] MEDS: ATORVASTATIN 20 MG TABLET 80 MG PO (08:14)
[2023-08-05] MEDS: MAGNESIUM CHLORIDE 64 MG TABLET 128 MG PO (08:14)
[2023-08-05] MEDS: DULOXETINE 30 MG CAPSULE PO (08:15)
[2023-08-05] MEDS: DONEPEZIL 5 MG TABLET 10 MG PO (08:15)
[2023-08-05] MEDS: SODIUM CHLORIDE 0.9% FLUSH 10 ML IV ×2 (08:18)
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
--- NOTE | 2023-08-05 19:25 | P.DS_ITS ---
History of Present Illness History of Present Illness Date Patient Seen: 08/01/23 Time Patient Seen: 11:53 Chief complaint: back pain, dizzy Narrative: Per admitting physician: 87 years old male with history of hyperlipidemia, diabetes mellitus type 2, depression, anxiety, history of pancreatitis, recent thoracic compression fracture, GERD, history of CABG, mild dementia, CAD, presented to the ER with several days of melena. Patient also reports some constipation, feeling dizzy, lightheaded, poor appetite and oral intake. He was hospitalized for thoracic compression fracture in [facility] 2 weeks ago and was discharged on meloxicam. His last colonoscopy was more than 10 years ago. Currently take aspirin. Denies any fever, shortness of breath, cough, chest pain, palpitations, abdominal pain or dysuria. In the ER he was given Protonix 80 mg IV, NS bolus and Zofran. His initial laboratory shows C13.9, H&H 12/37.8, platelets 186, INR 1, sodium 134 potassium 4.2, creatinine 1.27, ALT 100, LFT normal, recent CT of the abdomen progressive T12 compression fracture. Surgery on-call was consulted. Discharge Providers Provider Date of admission: 07/31/23 17:13 Discharge Date: 08/05/23 Primary care physician: Doctor Pamela MD Consults: 08/01/23 07:27 Consult to General Surgery Routine Comment: Consulting Provider: Roland Antonio Reason for consultation: UGIB Has provider been notified: Yes 08/01/23 15:03 Consult to Occupational Therapy Evaluate & Treat Comment: Physician Instructions: Evaluate and treat Consult to Physical Therapy Evaluate & Treat Comment: Physician Instructions: Evaluate and Treat Discharge provider: Zhao Motta MD Summary Hospital Course Discharge Diagnosis: 1. 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 Hypertension 3. Hyperlipidemia 4. GERD 5. Dementia 6. Diabetes 7. Vertebral compression fracture 8. Orthostatic hypotension Hospital Course: Mr. Mckoy was admitted with a GI bleed. EGD was done and showed a pyloric mass and biopsies were pending at discharge. His hemoglobin stabilized and he was discharged with hemoglobin of 9.8. He was weak on discharge, and discussion was had with him and family and goal was to get him back home to [place] to follow up [place] with his physicians about further workup for concern for malignancy. Exam Vital Signs (past 8 hours): Oxygen Delivery Method Room Air Oxygen Flow Rate 0 Narrative Exam Narrative: GENERAL: no acute distress HEENT: Normocephalic, atraumatic. No scleral icterus CHEST: Rising symmetrically. No audible wheezes CARDIOVASCULAR: Warm and well perfused. Regular rate ABDOMEN: Soft, non-tender, non-distended EXTREMITIES: Normal tone and without edema. NEUROLOGIC: Moving all extremities spontaneously. No gross motor deficits. Objective Labs 08/05/23 06:20 08/05/23 06:20 Labs: Laboratory Results - last 24 hr 08/05/23 06:20 WBC 4.8 RBC 3.21 L Hgb 9.8 L Hct 28.3 L MCV 88.2 MCH 30.6 MCHC 34.7 RDW 14.2 Plt Count 145 L Neut % (Auto) 58.5 Lymph % (Auto) 18.3 L [place] % (Auto) 14.0 Eos % (Auto) 8.8 H Baso % (Auto) 0.4 Neut # (Auto) 2800 Lymph # (Auto) 900 L [place] # (Auto) 700 Eos # (Auto) 400 Baso # (Auto) 0 Sodium 131 L Potassium 3.7 Chloride 102 Carbon Dioxide 26 BUN 14 Creatinine 0.90 Estimated GFR > 60 BUN/Creatinine Ratio 15.6 Glucose 115 H Calcium 8.2 L Magnesium 1.7 PFSH Social History household members: spouse Smoking Status: Never smoker alcohol intake: former Discharge Plan Discharge Plan Patient Disposition: Home Provider Discharge Comment: You were admitted to the hospital with bleeding, 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 Biopsies are still pending at this time. Please follow up with your PCP as soon as possible in [place] Discharge orders & Medications Prescriptions: New omeprazole 20 mg tablet,delayed release (DR/EC) 40 mg PO DAILY 60 Days Qty: 120 0RF Continued tamsulosin 0.4 mg capsule 0.4 mg PO BEDTIME metoprolol succinate 25 mg tablet extended release 24 hr 100 mg PO DAILY atorvastatin 80 mg tablet 80 mg PO DAILY donepezil 10 mg tablet 10 mg PO DAILY amlodipine 10 mg tablet 10 mg PO DAILY trazodone 100 mg tablet 100 mg PO ONCE PM duloxetine 30 mg capsule,delayed release(DR/EC) 30 mg PO DAILY Jardiance 10 mg tablet 10 mg PO DAILY oxycodone 5 mg tablet 5 mg PO 4XD PRN (Reason: Pain (Scale Score 4-6)) Qty: 4 0RF Discontinued meloxicam 7.5 mg tablet 7.5 mg PO BID PRN (Reason: pain) Qty: 10 0RF bumetanide 1 mg tablet 1 mg PO DAILY losartan 100 mg tablet 100 mg PO DAILY Follow up/Referrals: Miscellaneous,Doctor, MD [Primary Care Provider] - Diet/Activity/Treatments Diet: Diet as Tolerated and Carb-consistent/Diabetic Activity: As tolerated, no restrictions Visit Report/Discharge Packet Instructions: DI for Prescription Opioid Use, DI for Stomach Polyps Stand Alone Forms: Patient Portal/API, Stroke Signs & Symptoms Discharge Data Primary Care Provider: Doctor Pamela Attending Provider: Kwabena Raza Admit Date/Time: 07/31/23 17:13 Quality VTE Deep Vein Thrombosis/Pulmonary Embolism Present on Admission: No
== END 2023-08-05 13:07 | disposition home or self-care (01) ==
LOC: ED 16:43 → AC 17:31
PROVIDERS: Internal Medicine; Surgery; Admitting Provider Student in an Organized Health Care Education/Training Program; Emergency Provider Emergency Medicine; Referring Provider Emergency Medicine; Visit Provider Student in an Organized Health Care Education/Training Program
PROC: 0DJ08ZZ Inspection of Upper Intestinal Tract, Via Natural or Artificial Opening Endoscopic (ICD-10-PCS; CPT 43235; principal; 2023-08-01 15:00)
DX: K29.70 Gastritis, unspecified, without bleeding (principal); E11.9 Type 2 diabetes mellitus without complications; I10 Essential (primary) hypertension; E78.5 Hyperlipidemia, unspecified; K21.9 Gastro-esophageal reflux disease without esophagitis; F03.90 Unspecified dementia, unspecified severity, without behavioral disturbance, psychotic disturbance, mood disturbance, and anxiety; Z79.84 Long term (current) use of oral hypoglycemic drugs
CPT/HCPCS: 43239; 36415; 74174; 80048; 80053; 81003; 82962; 83690; 83735; 84443; 85014; 85018; 85025; 85610; 85730; 86850; 86870; 86900; 86901; 93005; 93306; 96361; 96374; 96375; 96376; 97110; 97116; 97166; 97530; 99232; 99284; G0378; C9113; J1815; J2405; Q9967

== ENCOUNTER → 2024-05-07 10:27 | Outpatient (CLI) | payer OTHER, SELFPAY ==
[2023-07-31 17:40] VITALS: BMI 24.1
--- NOTE | 2024-05-07 10:29 | DI.RAD.S_ITS ---
PROCEDURE: XR LUMBAR SPINE 2-3V INDICATIONS: Low back pain TECHNIQUE: 3 views of the lumbar spine were acquired. COMPARISON: [facility], MR, MR LUMBAR SPINE WITHOUT CONTRAST, 07/10/2023, 21:34. FINDINGS: Bones: 5 [id number] vertebrae are present. There is severe anterior wedge compression deformity at T12 level with near complete loss of T12 vertebral body height progressed since previous study in 2022. Degenerative endplate changes and bilateral facet arthrosis throughout lumbar spine is seen. No suspicious bony lesions. Soft tissues: Overlying bowel gas pattern is normal. No suspicious soft tissue calcifications. IMPRESSION: 1. Interval significant progression of T12 compression fracture with near complete loss of T12 vertebral body height. No other vertebral body compression fracture is seen. Degenerative disc disease throughout lower thoracic and lumbar spine. Dictated by: Sukumar Guaman M.D. on 05/07/2024 at 10:56 Approved by: Sukumar Guaman M.D. on 05/07/2024 at 10:58
== END ==
PROVIDERS: Referring Provider Physician Assistant Surgical; Visit Provider Physician Assistant Surgical
DX: M48.54XA Collapsed vertebra, not elsewhere classified, thoracic region, initial encounter for fracture (principal); M51.34 Other intervertebral disc degeneration, thoracic region; M51.36 Other intervertebral disc degeneration, lumbar region; M47.816 Spondylosis without myelopathy or radiculopathy, lumbar region; M54.50 Low back pain, unspecified
CPT/HCPCS: 72100

== ENCOUNTER 2024-05-09 15:42 | Emergency (ER) | payer OTHER, SELFPAY ==
[2023-07-31 17:40] VITALS: BMI 24.1
[2024-05-09 15:56] VITALS: BP 140/65; PULSE 64; RESP 16; TEMP 36.8; O2SAT 96
--- NOTE | 2024-05-09 17:25 | ED_ITS ---
HPI - Back Pain/Injury <Codie Ram PA-C - Last Filed: 05/10/24 11:01> General Chief Complaint: Back Pain/Injury Stated Complaint: abn labs, xrays Time Seen by Provider: 05/09/24 17:25 Source: patient History of Present Illness HPI Narrative: Patient is a very pleasant 88-year-old male that presents to the emergency room department after he was contacted by 1 of the nurses here at [facility] discussed the x-rays that he had that were ordered in the walk-in clinic on 05/07. The patient presented to the walk-in clinic on 05/07 with 5 days of back pain that have been worsening. With no recent injury, trauma or fall. The patient had had worsening back pain, he was taking Tylenol which really was not helping with the back pain or discomfort. An x-ray was ordered in the walk-in clinic, and the patient was discharged prior to a report being signed and the patient being given his results. The patient was then contacted with his results and was instructed to come to the emergency room department for immediate care. The patient had x-rays on 07/31/23 which showed compression fractures L4 and T12. The T12 fracture was a wedge compression with no retropulsion into the spinal canal. This new x-rays showed that now the T12 fracture was completely compressed with again no retropulsion into the spinal canal. And most likely this compression fracture was now causing the continued and now increasing back pain. However, the patient has a complex medical history, underlying dementia which he takes medications for. He currently is here living alone on a boat that is currently on the water. He currently has no family that is here with him, his family currently resides in [place], that would be his as well as his daughter. The patient's family has attempted to get him to come back to [place] but the patient has refused and is argumentative because he does not want to live in [place] because he enjoys the weather here and he is originally from [place] and has friends here and enjoys being here. He also enjoys being on his boat, his had been appear with him but has recently returned to [place], and his daughter lives in [place]. They are aware that he is currently having back pain, they have been contacted about his back pain, and they are concerned about his back pain and they are also concerned about his dementia as well as him being alone, and being alone on a boat. The patient does not have a primary care doctor here, he has never establish care with a 1 here. He gets all of his care in [place] when he actually is in [place]. The patient is very confused here, however is redirectable, he has not aggressive, and he even states that he has dementia and he understands that he has dementia. However he felt that he was doing the right thing by exercising on a daily basis and walking on a daily basis and doing things that he felt were improving his health. Did not realize that he had 2 fractures in his back he states that he was never told when he was hospitalized, which happened on 07/01 23 when he was hospitalized for 3 weeks for an underlying GI bleed, which was found on EGD. He was treated at that time during his hospital stay which he spent 3 weeks here at [facility] he was then stabilized and then discharged and he then returned home to [place]. Been here in the [place] spending time is boat for the summer and into the early fall. Had planned to spend fall here and perhaps go back to [place] but currently has not made any plans to returned to [place]. While seeing the patient here in the emergency room department I spent almost 45 minutes speaking with the patient I also spoke with the patient's family his daughter and his on speaker phone they are very concerned about his health, they are concerned about his back pain, and they are concerned about the fact that he has dementia, and refuses to come home, and is argumentative, and will not allow them to take care of him, and refuses to get on a plane, and come home where they can get him medical care. The patient denies recent injury, trauma or fall. He does not know how he hurt his back or why his back is worse. Patient was encouraged to come into the emergency room department for pain relief. Spoken with the patient and I am concerned about his age, I am concerned about the fact that he has on a boat that is on water, I am concerned about the fact that he lives alone, and I am concerned about his dementia. I am also concerned about the fact the patient currently takes trazodone in the evening and he also takes a sleep aid. I have explained to him that these medications cause him to be unsteady and they cause him to be drowsy, my and any other medications besides currently nonsteroidals such as Tylenol, Advil, ibuprofen anything stronger would cause him to also be unsteady and I am concerned about his risk for fall which is very high on the medications he is currently taking. So I have explained to him that I do not at this time feel comfortable prescribing him anything stronger. I have stated that a back brace would perhaps give him some relief of his discomfort associated with the old fracture that he had that has slowly worsened over time which is normal with these type of injuries. I have also explained to him with his advanced age in his underlying medical problems surgery most likely is not an option however physical therapy would be an option but this would be something his primary care doctor in [place] would be able to assist him with. I have encouraged him to make arrangements to return back to [place] for further care, further evaluation, physical therapy, and any type of modalities that would help him with his discomfort and pain. I also encouraged him to continue with the Tylenol and then he can supplement with ibuprofen. I have encouraged him to continue all his medications. Return to the emergency department as needed. Or the walk-in clinic for assistance. Related Data Home Medications Medication Instructions Recorded Confirmed omeprazole 20 mg tablet,delayed 20 mg PO DAILY 05/07/24 05/13/24 release amlodipine 5 mg tablet 5 mg PO DAILY 05/13/24 05/13/24 atorvastatin 80 mg tablet 80 mg PO DAILY 05/13/24 05/13/24 empagliflozin 10 mg tablet 10 mg PO DAILY 05/13/24 05/13/24 (Jardiance) losartan 100 mg tablet 100 mg PO DAILY 05/13/24 05/13/24 metoprolol succinate 100 mg 100 mg PO DAILY 05/13/24 05/13/24 tablet,extended release 24 hr zolpidem 5 mg tablet 5 mg PO ONCE PM PRN Insomnia 05/13/24 05/13/24 Previous Rx's Medication Instructions Recorded tamsulosin 0.4 mg capsule (Flomax) 0.4 mg PO DAILY 30 days #30 caps 05/13/24 Allergies Allergy/AdvReac Type Severity Reaction Status Date / Time No Known Drug Allergies Allergy Verified 05/07/24 09:51 Review of Systems <Codie Ram PA-C - Last Filed: 05/10/24 11:01> Review of Systems Narrative: Negative except as above Musculoskeletal Comments: Ongoing back pain worsening over the last several days Patient History <Codie Ram PA-C - Last Filed: 05/10/24 11:01> Social History household members: spouse Smoking Status: Never smoker alcohol intake: former Smoking Status: Never smoker Substance Use Type: does not use Exam <Codie Ram PA-C - Last Filed: 05/10/24 11:01> Initial Vital Signs Initial Vital Signs: Vital Signs Temperature 98.3 F 05/09/24 15:56 Pulse Rate 64 05/09/24 15:56 Respiratory Rate 16 05/09/24 15:56 Blood Pressure 140/65 05/09/24 15:56 Pulse Oximetry 96 05/09/24 15:56 Oxygen Delivery Method Room Air 05/09/24 15:56 Reviewed Const General: cooperative, healthy appearing, well groomed, No acute distress and No in distress Nutritional Appearance: overweight and other (Physically deconditioned due to age) Eyes General: Yes appearance normal, both eyes and all related structures Eyelids: eyelids normal Pupils: PERRL EOM: EOM intact bilaterally Back/Spine/Pelvis Other: Patient has discomfort and pain in the lower thoracic area and lumbar pain. He has no radiculopathy symptoms. Pulses are present. Cap refill is present. He has muscle wasting and atrophy to the lower extremities do associated with advanced age and deconditioning. Neuro General: patient alert, patient awake and other (Patient has underlying dementia) Other: The patient has underlying dementia, he knows that he has dementia it is mild at this point in time however due to his dementia, I spent 45 minutes almost an hour with the patient not only speaking with him but speaking with his family. The patient went over multiple stories multiple times and we had multiple conversations that were exactly the same verbatim multiple times about his issues, his problems, what he thought he was doing, not understanding what was going on, not being told that he had fractures in his back. I eber pictures for him I explained what was going on with him. I had a conversation on the phone with not only the patient but his daughter and his via speaker phone. I explained to the family exactly what the x-ray showed, explained my reasoning for feeling uncomfortable prescribing any type of strong pain medication. I expressed my concern for safety, and I expressed my concern for the patient's personal safety of living on a boat that is on water by himself. I encouraged the patient verbally to make arrangements to go home where he could be seen by his primary care doctor, he could get prescriptions for physical therapy, and he can be fitted for prosthetic back brace that would give him some type of relief associated with the compression fracture. Unfortunately this isn't something that is surgically amenable to any type of fixture. Extrem Other: The patient does not have any neurologic deficits and lower extremities. He has some atrophy and some muscle wasting to the lower extremities associated with advanced age and deconditioning. He does have some central obesity which puts him at a higher risk of being unsteady. Plus with the medications that he is currently taking his unsteady. Cap refill is preserved. His pulses are present. Does not have any signs and symptoms of recent fall such as bruising or ecchymosis or skin tears. Psych Appearance: grossly normal and well kempt Mental Status: other (Underlying obvious cognitive decline associated with qwfx-rj-dpqlewqz demen) Speech and Movement: speech and movement normal Mood: other (Underlying obvious cognitive decline associated with mil [id number] demen) Affect: normal affect Attitude: cooperative Thought Process: other (Underlying hnoy-lc-fxzrrnsz dementia) Judgment: poor <Alice Harp DO - Last Filed: 05/19/24 07:13> Initial Vital Signs Initial Vital Signs: Vital Signs Temperature 98.3 F 05/09/24 15:56 Pulse Rate 64 05/09/24 15:56 Respiratory Rate 16 05/09/24 15:56 Blood Pressure 140/65 05/09/24 15:56 Pulse Oximetry 96 05/09/24 15:56 Oxygen Delivery Method Room Air 05/09/24 15:56 Course <Codie Ram PA-C - Last Filed: 05/10/24 11:01> Vital Signs Vital signs: Vital Signs - 8 hr 05/09/24 15:56 Temperature 98.3 F Pulse Rate 64 Respiratory Rate 16 Blood Pressure 140/65 Pulse Oximetry 96 Oxygen Delivery Method Room Air Reviewed <Alice Harp DO - Last Filed: 05/19/24 07:13> Vital Signs Vital signs: Vital Signs - 8 hr 05/09/24 15:56 Temperature 98.3 F Pulse Rate 64 Respiratory Rate 16 Blood Pressure 140/65 Pulse Oximetry 96 Oxygen Delivery Method Room Air MDM - Back Pain/Injury <Codie Ram PA-C - Last Filed: 05/10/24 11:01> Imaging Data back lumbar xray: Radiologist's Impression: [address] [address] XRay Report Signed Patient: Gaudencio Mckoy MR#: [id number] : 1935 Acct:[id number] Age/Sex: 88 / M Date of Service: 05/07/24 Loc: RAD Accession Number: [id number] Procedure: XR lumbar spine 2-3V Ordering Provider: Bushra Fatima PA-C PROCEDURE: XR LUMBAR SPINE 2-3V INDICATIONS: Low back pain TECHNIQUE: 3 views of the lumbar spine were acquired. COMPARISON: [facility], MR, MR LUMBAR SPINE WITHOUT CONTRAST, 07/10/2023, 21:34. FINDINGS: Bones: 5 aks-ide-sxvilyl vertebrae are present. There is severe anterior wedge compression deformity at T12 level with near complete loss of T12 vertebral body height progressed since previous study in 2022. Degenerative endplate changes and bilateral facet arthrosis throughout lumbar spine is seen. No suspicious bony lesions. Soft tissues: Overlying bowel gas pattern is normal. No suspicious soft tissue calcifications. IMPRESSION: 1. Interval significant progression of T12 compression fracture with near complete loss of T12 vertebral body height. No other vertebral body compression fracture is seen. Degenerative disc disease throughout lower thoracic and lumbar spine. Dictated by: Sukumar Guaman M.D. on 05/07/2024 at 10:56 Approved by: Sukumar Guaman M.D. on 05/07/2024 at 10:58 [facility] Narrative Medical decision making narrative: Pleasant 88-year-old male encouraged by the nurse that I spoke with him on the phone about his x-ray results to present to the emergency room department for further care and evaluation. The nurse told him to present for pain medication. However after discussing everything with the patient finding out that the patient currently has uoxq-rw-wrqwbfqm dementia, currently living by himself, currently here by himself, currently living on a boat that is currently on the water. I do not currently feel comfortable prescribing anything stronger than nonsteroidals to the patient for his discomfort and pain. I have explained to the patient and the patient's daughter and over the phone in a long in- depth detailed discussion and conversation about what the patient's underlying issues are associated with his back and the fractures that he currently has that a type of pain medication stronger, then the nonsteroidals that he is currently taking are concerning and increases risk of fall. This puts him at a higher risk of a fall, and possibly having some type of head trauma, intracranial pathology, or long bone fracture such as a hip fracture, or upper extremity fracture. The concern is that the patient lives by himself on a boat, and does not really have people who check on him. If the patient falls in the boat who is going to find him, if he falls off of the boat and round who was find him these are very concerning issues. I encouraged the patient and when I talked to the family encouraged the patient to please return back to [place] where he has family, friends, primary care doctor, and he has to support to help him with his underlying medical issues and the worsening fractures in his back, and can help with pain and can get him physical therapy and get him the care that he needs. Then when he is stable and feeling better he can then return back to the [place] next summer and he can resume his usual time that he spends here on the [place]. However with no primary care doctor, and limited support, I have explained to the patient I do not feel comfortable prescribing anything stronger than the non steroidals that he is currently taking. We have limited resources to help the patient unfortunately, he understands, the family is very concerned, the patient's 's very concerned, I am hoping that they will be able to convince him to a book a flight and return home. I reviewed his x-rays with him, I eber pictures for him, I reviewed all of the information with the family. I discussed with him possibly purchasing a back brace to help give him some Support. I I encouraged him to follow up in the walk-in Clinic as needed. I encouraged him to return to the emergency department as needed. I encouraged him to use ibuprofen and Tylenol tklc-[id number]-kxsevbn for discomfort and pain. I encouraged him to use topical preparations for discomfort and pain. I encouraged the patient to please return home to [place] where he can get the support and care that he really needs. I am extremely concerned about the patient's safety. The patient understands my concerns. However, unfortunately I do not know if the patient is going to take what I have said to heart, he seems very resistant, and he seems very independent, and I think that these issues are associated with his underlying dementia. I think the family is very frustrated, however at this point I think the family needs to probably take control of the situation. Patient was discharged with supportive therapy education and ED precautions. No narcotics were prescribed, no muscle relaxers were prescribed. Education on appropriate Tylenol and ibuprofen was given to the patient upon discharge. Differential diagnosis; worsening known thoracic and lumbar sirs. With exacerbation, and worsening back pain. The patient does not have any neurologic signs and symptoms associated with worsening fractures. On x-ray there is no retropulsion into the spinal canal. The patient does have any sciatic signs or symptoms. There is no numbness tingling or weakness of the lower extremities. The patient does not have any testicular or penis pain. There is no rectal numbness. There is no signs of cauda equina upon discussing with the patient his symptoms. Discharge Plan Departure Patient Disposition: Home Clinical Impression: Back pain Qualifiers: Back pain location: low back pain Chronicity: chronic Back pain laterality: unspecified Sciatica presence: without sciatica Qualified Code(s): M54.50 - Low back pain, unspecified Nontraumatic compression fracture of thoracic vertebra Qualifiers: Encounter type: initial encounter Thoracic vertebra fracture level: T12 Qualified Code(s): M48.54XA - Collapsed vertebra, not elsewhere classified, thoracic region, initial encounter for fracture Activity Restrictions/Additional Instructions: You have a compression fracture in your back, in 2022 you had a partial compression fracture of thoracic, T-spine 12., now that compression fracture has continued to worsen now you have complete compression fracture of T12. However there is no narrowing of the spinal canal. Treatment for this is ibuprofen, Tylenol. A back brace to help support your back. You should establish care with a primary care doctor here for when you are here visiting in [place]. I would suggest since her having discomfort and pain you consider returning to [place] where you have family support. Tylenol 500 mg every 8 hours, ibuprofen 600 mg every 8 hours. Please consider returning home to see your primary care doctor, please consider following up with your primary care doctor and requesting a physical therapy referral. Please consider being evaluated and getting a back brace. Please return to the emergency department as needed. Prescriptions: No Action omeprazole 20 mg tablet,delayed release (DR/EC) 20 mg PO DAILY amlodipine 5 mg tablet 5 mg PO DAILY atorvastatin 80 mg tablet 80 mg PO DAILY Jardiance 10 mg tablet 10 mg PO DAILY zolpidem 5 mg tablet 5 mg PO ONCE PM PRN (Reason: Insomnia) losartan 100 mg tablet 100 mg PO DAILY metoprolol succinate 100 mg tablet extended release 24 hr 100 mg PO DAILY tamsulosin [Flomax] 0.4 mg capsule 0.4 mg PO DAILY 30 Days Qty: 30 0RF Referrals: Miscellaneous,Doctor, MD [Primary Care Provider] - Stand Alone Forms: Patient Portal/API ED Sign-out <Alice Harp DO - Last Filed: 05/19/24 07:13> Cosign ED Attending Debra Attestation: I was immediately available in the department for consultation.
[2024-05-09 18:38] VITALS: BP 192/82; PULSE 56; RESP 22; O2SAT 96
== END 2024-05-09 18:41 | disposition home or self-care (01) ==
PROVIDERS: Emergency Provider Physician Assistant
DX: M48.54XA Collapsed vertebra, not elsewhere classified, thoracic region, initial encounter for fracture (principal); M54.50 Low back pain, unspecified; F03.90 Unspecified dementia, unspecified severity, without behavioral disturbance, psychotic disturbance, mood disturbance, and anxiety
CPT/HCPCS: 99281

== ENCOUNTER 2024-05-13 02:59 | Emergency (ER) | payer OTHER, SELFPAY ==
[2023-07-31 17:40] VITALS: BMI 24.1
[2024-05-13] VITALS (43 sets, daily range): BP systolic 139–225; BP diastolic 68–116; PULSE 48–94; RESP 16–36; TEMP 36.6; O2SAT 85–100
--- NOTE | 2024-05-13 03:01 | ED.GENADULT ---
HPI - General Adult <Andres Pedroza MD - Last Filed: 05/13/24 16:17> General Chief complaint: Back Pain/Injury Stated complaint: GLF x2 Time Seen by Provider: 05/13/24 03:01 History of Present Illness HPI narrative: 88-year-old male with history of chronic low back pain, reports prior MRI study showing [id number] lumbar back problems, had recently been increasing his activity, complains of right lower back pain, had a fall earlier today, further increase his low back pain. No numbness or weakness to his legs. He is living on a boat that he keeps in [facility] seasonally, otherwise lives in the [facility] area. He is concerned that he might not be able to be staying on a boat any longer, might want to be returning to [facility] if he is able to. However he is concerned about recent falls. Fell yesterday on his boat, with some increase in his mid-low back pain. He is taking Tylenol. He was prescribed oxycodone from a recent ER visit that he had not tolerate. He does not want opiate medications at this time. Denies incontince to urine or stool. Related Data Home Medications Medication Instructions Recorded Confirmed omeprazole 20 mg tablet,delayed 20 mg PO DAILY 05/07/24 05/13/24 release amlodipine 5 mg tablet 5 mg PO DAILY 05/13/24 05/13/24 atorvastatin 80 mg tablet 80 mg PO DAILY 05/13/24 05/13/24 empagliflozin 10 mg tablet 10 mg PO DAILY 05/13/24 05/13/24 (Jardiance) losartan 100 mg tablet 100 mg PO DAILY 05/13/24 05/13/24 metoprolol succinate 100 mg 100 mg PO DAILY 05/13/24 05/13/24 tablet,extended release 24 hr zolpidem 5 mg tablet 5 mg PO ONCE PM PRN Insomnia 05/13/24 05/13/24 Previous Rx's Medication Instructions Recorded prednisone 20 mg tablet 40 mg (2 x 20 mg) PO DAILY 5 days 05/13/24 #10 tabs tamsulosin 0.4 mg capsule (Flomax) 0.4 mg PO DAILY 30 days #30 caps 05/13/24 Allergies Allergy/AdvReac Type Severity Reaction Status Date / Time No Known Drug Allergies Allergy Verified 05/07/24 09:51 Review of Systems <Andres Pedroza MD - Last Filed: 05/13/24 16:17> Review of Systems Narrative: see HPI Patient History <Andres Pedroza MD - Last Filed: 05/13/24 16:17> Social History household members: spouse Smoking Status: Never smoker alcohol intake: former Smoking Status: Never smoker Substance Use Type: does not use Exam <Andres Pedroza MD - Last Filed: 05/13/24 16:17> Narrative Exam Narrative: GENERAL: Well-developed patient, in mild distress. HEAD: Atraumatic. Normocephalic. EYES: Pupils equal round and reactive. Extraocular motions intact. No scleral icterus. No injection or drainage. ENT: Nose without bleeding, purulent drainage. Throat without erythema, tonsillar hypertrophy or exudate. Airway patent. NECK: Trachea midline. Non tender CARDIOVASCULAR: Regular rate and rhythm without murmurs, gallops, or rubs. RESPIRATORY: Clear to auscultation. Breath sounds equal bilaterally. No wheezes, rales, or rhonchi. GASTROINTESTINAL: Abdomen soft, non-tender, nondistended. EXTREMITIES: No edema or joint tenderness. BACK: Nontender without deformity or crepitance. No flank tenderness. Right low lumbar paraspinal muscle tenderness, no tenderness midline. Right mid back paraspinal muscle tenderness about at the junction of the upper lumbar lower thoracic, not tender midline. No skin changes. No vesicles or lesions or cellulitis changes. NEURO: AOx3. Motor functions grossly nonfocal. SKIN: No rash or erythema of visible areas Initial Vital Signs Initial Vital Signs: Vital Signs Pulse Rate 67 05/13/24 03:06 Blood Pressure 139/72 05/13/24 03:06 Pulse Oximetry 98 05/13/24 03:06 <Arthur Camargo DO - Last Filed: 05/13/24 15:59> Initial Vital Signs Initial Vital Signs: Vital Signs Pulse Rate 67 05/13/24 03:06 Blood Pressure 139/72 05/13/24 03:06 Pulse Oximetry 98 05/13/24 03:06 Course <Andres Pedroza MD - Last Filed: 05/13/24 16:17> Orders Ordered: ED Orders 05/13/24 07:35 BMP [Basic Metabolic Panel] Stat Creatine Kinase Stat 05/13/24 08:04 CT angio chest abdomen pelvis Stat 05/13/24 08:23 Urine Microscopic Stat 05/13/24 10:36 MR lumbar spine wo/w con Stat 05/13/24 10:52 XR chest 1V Stat 05/13/24 13:46 [place] [facility] [place] Stat 05/13/24 15:09 Consult to Physical Therapy Evaluate & Treat Discontinued Medications Acetaminophen (Acetaminophen 325 Mg Tablet) 650 mg PO NOW ONE Stop: 05/13/24 03:23 Last Admin: 05/13/24 04:03 Dose: 650 mg Documented By: Amlodipine Besylate (Amlodipine 5 Mg Tablet) 5 mg PO NOW ONE Stop: 05/13/24 13:47 Last Admin: 05/13/24 13:59 Dose: 5 mg Documented By: IVÁN Atorvastatin Calcium (Atorvastatin 20 Mg Tablet) 80 mg PO NOW ONE Stop: 05/13/24 13:48 Last Admin: 05/13/24 13:58 Dose: 80 mg Documented By: IVÁN Sodium Chloride (Normal Saline 0.9%) 1,000 mls @ 1,000 mls/hr IV BOLUS ONE Stop: 05/13/24 05:42 Last Infusion: 05/13/24 06:10 Dose: Infused Documented By: Admin: 05/13/24 04:56 Dose: 1,000 mls/hr Documented By: Sodium Chloride (Normal Saline 0.9%) 1,000 mls @ 500 mls/hr IV BOLUS ONE Stop: 05/13/24 10:04 Last Infusion: 05/13/24 13:43 Dose: Infused Documented By: Infusion: 05/13/24 13:29 Dose: 500 mls/hr Documented By: Infusion: 05/13/24 10:45 Dose: 0 mls/hr Documented By: Admin: 05/13/24 08:35 Dose: 500 mls/hr Documented By: IVÁN Lidocaine HCl (Lidocaine 2% (Glydo) 6 Ml Gel) 6 ml TOP NOW ONE Stop: 05/13/24 08:01 Last Admin: 05/13/24 08:05 Dose: 6 ml Documented By: IVÁN Losartan Potassium (Losartan 50 Mg Tablet) 100 mg PO NOW ONE Stop: 05/13/24 13:48 Last Admin: 05/13/24 13:59 Dose: 100 mg Documented By: IVÁN Methocarbamol (Methocarbamol 500 Mg Tablet) 500 mg PO NOW ONE Stop: 05/13/24 03:23 Last Admin: 05/13/24 04:03 Dose: 500 mg Documented By: Metoprolol Succinate (Metoprolol Er 50 Mg Tablet) 100 mg PO NOW ONE Stop: 05/13/24 13:47 Last Admin: 05/13/24 13:58 Dose: 100 mg Documented By: IVÁN Tamsulosin HCl (Tamsulosin 0.4 Mg Capsule) 0.4 mg PO NOW ONE Stop: 05/13/24 13:46 Last Admin: 05/13/24 13:59 Dose: 0.4 mg Documented By: IVÁN Vital Signs Vital signs: Vital Signs - 8 hr 05/13/24 08:30 05/13/24 08:30 05/13/24 08:49 Pulse Rate 84 65 Respiratory Rate 30 H Blood Pressure 162/72 H Pulse Oximetry 93 87 L Oxygen Delivery Method Room Air Oxygen Flow Rate 05/13/24 09:00 05/13/24 09:20 05/13/24 09:40 Pulse Rate 80 83 82 Respiratory Rate 31 H 36 H 33 H Blood Pressure Pulse Oximetry 94 92 96 Oxygen Delivery Method Room Air Room Air Room Air Oxygen Flow Rate 05/13/24 09:41 05/13/24 09:43 05/13/24 10:00 Pulse Rate 84 Respiratory Rate Blood Pressure Pulse Oximetry 85 L 97 95 Oxygen Delivery Method Room Air Nasal Cannula Oxygen Flow Rate 1 05/13/24 10:20 05/13/24 10:40 05/13/24 11:00 Pulse Rate 86 87 85 Respiratory Rate 28 H Blood Pressure Pulse Oximetry 99 98 98 Oxygen Delivery Method Nasal Cannula Oxygen Flow Rate 1 05/13/24 12:04 05/13/24 12:06 05/13/24 12:06 Pulse Rate 84 81 Respiratory Rate 26 H Blood Pressure 181/74 H Pulse Oximetry 97 97 Oxygen Delivery Method Oxygen Flow Rate 05/13/24 12:20 05/13/24 12:31 05/13/24 12:31 Pulse Rate 88 85 Respiratory Rate 24 26 H Blood Pressure 170/75 H Pulse Oximetry 97 98 Oxygen Delivery Method Nasal Cannula Oxygen Flow Rate 1 05/13/24 12:40 05/13/24 13:00 05/13/24 13:01 Pulse Rate 83 86 85 Respiratory Rate 21 Blood Pressure Pulse Oximetry 98 99 99 Oxygen Delivery Method Nasal Cannula Oxygen Flow Rate 1 05/13/24 13:01 05/13/24 13:17 05/13/24 13:17 Pulse Rate 79 Respiratory Rate 24 Blood Pressure 172/116 H 180/74 H Pulse Oximetry 99 Oxygen Delivery Method Oxygen Flow Rate 05/13/24 13:20 05/13/24 13:30 05/13/24 13:30 Pulse Rate 79 82 Respiratory Rate Blood Pressure 198/82 H Pulse Oximetry 97 98 Oxygen Delivery Method Room Air Room Air Oxygen Flow Rate 05/13/24 13:40 05/13/24 13:58 05/13/24 13:59 Pulse Rate 80 83 83 Respiratory Rate 29 H Blood Pressure 198/82 H 198/82 H Pulse Oximetry 98 Oxygen Delivery Method Oxygen Flow Rate 05/13/24 14:00 05/13/24 14:01 05/13/24 14:01 Pulse Rate 85 81 Respiratory Rate 26 H 29 H Blood Pressure 225/86 H Pulse Oximetry Oxygen Delivery Method Oxygen Flow Rate 05/13/24 14:20 05/13/24 15:04 Pulse Rate 79 72 Respiratory Rate 25 H Blood Pressure 165/70 H Pulse Oximetry 100 Oxygen Delivery Method Room Air Oxygen Flow Rate <Arthur Camargo, - Last Filed: 05/13/24 15:59> Orders Ordered: ED Orders 05/13/24 07:35 BMP [Basic Metabolic Panel] Stat Creatine Kinase Stat 05/13/24 08:04 CT angio chest abdomen pelvis Stat 05/13/24 08:23 Urine Microscopic Stat 05/13/24 10:36 MR lumbar spine wo/w con Stat 05/13/24 10:52 XR chest 1V Stat 05/13/24 13:46 Consult to [facility] - Atm Mechanic Stat 05/13/24 15:09 Consult to Physical Therapy Evaluate & Treat Discontinued Medications Acetaminophen (Acetaminophen 325 Mg Tablet) 650 mg PO NOW ONE Stop: 05/13/24 03:23 Last Admin: 05/13/24 04:03 Dose: 650 mg Documented By: AB Amlodipine Besylate (Amlodipine 5 Mg Tablet) 5 mg PO NOW ONE Stop: 05/13/24 13:47 Last Admin: 05/13/24 13:59 Dose: 5 mg Documented By: SPF Atorvastatin Calcium (Atorvastatin 20 Mg Tablet) 80 mg PO NOW ONE Stop: 05/13/24 13:48 Last Admin: 05/13/24 13:58 Dose: 80 mg Documented By: IVÁN Sodium Chloride (Normal Saline 0.9%) 1,000 mls @ 1,000 mls/hr IV BOLUS ONE Stop: 05/13/24 05:42 Last Infusion: 05/13/24 06:10 Dose: Infused Documented By: Admin: 05/13/24 04:56 Dose: 1,000 mls/hr Documented By: Sodium Chloride (Normal Saline 0.9%) 1,000 mls @ 500 mls/hr IV BOLUS ONE Stop: 05/13/24 10:04 Last Infusion: 05/13/24 13:43 Dose: Infused Documented By: Infusion: 05/13/24 13:29 Dose: 500 mls/hr Documented By: Infusion: 05/13/24 10:45 Dose: 0 mls/hr Documented By: Admin: 05/13/24 08:35 Dose: 500 mls/hr Documented By: IVÁN Lidocaine HCl (Lidocaine 2% (Glydo) 6 Ml Gel) 6 ml TOP NOW ONE Stop: 05/13/24 08:01 Last Admin: 05/13/24 08:05 Dose: 6 ml Documented By: IVÁN Losartan Potassium (Losartan 50 Mg Tablet) 100 mg PO NOW ONE Stop: 05/13/24 13:48 Last Admin: 05/13/24 13:59 Dose: 100 mg Documented By: IVÁN Methocarbamol (Methocarbamol 500 Mg Tablet) 500 mg PO NOW ONE Stop: 05/13/24 03:23 Last Admin: 05/13/24 04:03 Dose: 500 mg Documented By: Metoprolol Succinate (Metoprolol Er 50 Mg Tablet) 100 mg PO NOW ONE Stop: 05/13/24 13:47 Last Admin: 05/13/24 13:58 Dose: 100 mg Documented By: IVÁN Tamsulosin HCl (Tamsulosin 0.4 Mg Capsule) 0.4 mg PO NOW ONE Stop: 05/13/24 13:46 Last Admin: 05/13/24 13:59 Dose: 0.4 mg Documented By: IVÁN Vital Signs Vital signs: Vital Signs - 8 hr 05/13/24 08:30 05/13/24 08:30 05/13/24 08:49 Pulse Rate 84 65 Respiratory Rate 30 H Blood Pressure 162/72 H Pulse Oximetry 93 87 L Oxygen Delivery Method Room Air Oxygen Flow Rate 05/13/24 09:00 05/13/24 09:20 05/13/24 09:40 Pulse Rate 80 83 82 Respiratory Rate 31 H 36 H 33 H Blood Pressure Pulse Oximetry 94 92 96 Oxygen Delivery Method Room Air Room Air Room Air Oxygen Flow Rate 05/13/24 09:41 05/13/24 09:43 05/13/24 10:00 Pulse Rate 84 Respiratory Rate Blood Pressure Pulse Oximetry 85 L 97 95 Oxygen Delivery Method Room Air Nasal Cannula Oxygen Flow Rate 1 05/13/24 10:20 05/13/24 10:40 05/13/24 11:00 Pulse Rate 86 87 85 Respiratory Rate 28 H Blood Pressure Pulse Oximetry 99 98 98 Oxygen Delivery Method Nasal Cannula Oxygen Flow Rate 1 05/13/24 12:04 05/13/24 12:06 05/13/24 12:06 Pulse Rate 84 81 Respiratory Rate 26 H Blood Pressure 181/74 H Pulse Oximetry 97 97 Oxygen Delivery Method Oxygen Flow Rate 05/13/24 12:20 05/13/24 12:31 05/13/24 12:31 Pulse Rate 88 85 Respiratory Rate 24 26 H Blood Pressure 170/75 H Pulse Oximetry 97 98 Oxygen Delivery Method Nasal Cannula Oxygen Flow Rate 1 05/13/24 12:40 05/13/24 13:00 05/13/24 13:01 Pulse Rate 83 86 85 Respiratory Rate 21 Blood Pressure Pulse Oximetry 98 99 99 Oxygen Delivery Method Nasal Cannula Oxygen Flow Rate 1 05/13/24 13:01 05/13/24 13:17 05/13/24 13:17 Pulse Rate 79 Respiratory Rate 24 Blood Pressure 172/116 H 180/74 H Pulse Oximetry 99 Oxygen Delivery Method Oxygen Flow Rate 05/13/24 13:20 05/13/24 13:30 05/13/24 13:30 Pulse Rate 79 82 Respiratory Rate Blood Pressure 198/82 H Pulse Oximetry 97 98 Oxygen Delivery Method Room Air Room Air Oxygen Flow Rate 05/13/24 13:40 05/13/24 13:58 05/13/24 13:59 Pulse Rate 80 83 83 Respiratory Rate 29 H Blood Pressure 198/82 H 198/82 H Pulse Oximetry 98 Oxygen Delivery Method Oxygen Flow Rate 05/13/24 14:00 05/13/24 14:01 05/13/24 14:01 Pulse Rate 85 81 Respiratory Rate 26 H 29 H Blood Pressure 225/86 H Pulse Oximetry Oxygen Delivery Method Oxygen Flow Rate 05/13/24 14:20 05/13/24 15:04 Pulse Rate 79 72 Respiratory Rate 25 H Blood Pressure 165/70 H Pulse Oximetry 100 Oxygen Delivery Method Room Air Oxygen Flow Rate Medical Decision Making <Andres Pedroza MD - Last Filed: 05/13/24 16:17> Lab Data 05/13/24 04:05 05/13/24 07:35 Labs: Lab Results 05/13/24 05/13/24 05/13/24 Range/Units 04:05 04:45 07:35 WBC 11.9 H (4.5-11.0) X10^3/uL RBC 5.04 (4.5-5.9) X10^6/uL Hgb 14.0 (13.5-17.5) g/dL Hct 42.3 (41-53) % MCV 83.9 (80-100) fL MCH 27.7 (26-34) PG MCHC 33.0 (30-36) % RDW 16.7 H (11.6-14.8) % Plt Count 181 (150-400) X10^3/uL Neut % (Auto) 80.2 H (50-75) % Lymph % (Auto) 7.7 L (25-40) % [place] % (Auto) 11.6 (3-14) % Eos % (Auto) 0.3 L (2-4) % Baso % (Auto) 0.2 (0-2) % Neut # (Auto) 9600 H (1704-1836) /uL Lymph # (Auto) 900 L (3341-5226) /uL [place] # (Auto) 1400 H (0-900) /uL Eos # (Auto) 0 (0-450) /uL Baso # (Auto) 0 (0-100) /uL Sodium 135 L 134 L (137-145) mmol/L Potassium 4.3 4.0 (3.4-5.1) mmol/L Chloride 105 110 H (98-107) mmol/L Carbon Dioxide 23 16 L (22-32) mmol/L BUN 55 H 53 H (9-20) mg/dL Creatinine 2.08 H 1.90 H (0.66-1.25) mg/dL Estimated GFR 30 L 34 L (>60) mL/min BUN/Creatinine Ratio 26.4 H 27.9 H (6-22) Glucose 114 H 111 H (80-110) mg/dL Calcium 9.0 8.3 L (8.4-10.2) mg/dL Total Bilirubin 0.8 (0.2-1.3) mg/dL AST 49 (17-59) IU/L ALT 33 (<50) IU/L Alkaline Phosphatase 95 (38-126) U/L Total Creatine Kinase 316 H (55-170) U/L Troponin I 0.068 H (0.01-0.034) ng/mL Total Protein 6.6 (6.3-8.2) g/dL Albumin 3.7 (3.5-5.0) g/dL Globulin 2.9 (1.7-4.1) g/dL Albumin/Globulin Ratio 1.3 (1.0-2.8) Urine RBC 0-1/hpf (0-5/HPF) Urine WBC None seen (0-5/HPF) Ur Squamous Epith Cells 0-1 /hpf (0-5/HPF) Urine Bacteria None seen (None) Ur Culture Indicated? Cult not indicated Vol Urine Centrifuged 10ml (spun) 05/13/ Range/Units 08:23 WBC (4.5-11.0) X10^3/uL RBC (4.5-5.9) X10^6/uL Hgb (13.5-17.5) g/dL Hct (41-53) % MCV (80-100) fL MCH (26-34) PG MCHC (30-36) % RDW (11.6-14.8) % Plt Count (150-400) X10^3/uL Neut % (Auto) (50-75) % Lymph % (Auto) (25-40) % [place] % (Auto) (3-14) % Eos % (Auto) (2-4) % Baso % (Auto) (0-2) % Neut # (Auto) (9530-3413) /uL Lymph # (Auto) (7147-4715) /uL [place] # (Auto) (0-900) /uL Eos # (Auto) (0-450) /uL Baso # (Auto) (0-100) /uL Sodium (137-145) mmol/L Potassium (3.4-5.1) mmol/L Chloride (98-107) mmol/L Carbon Dioxide (22-32) mmol/L BUN (9-20) mg/dL Creatinine (0.66-1.25) mg/dL Estimated GFR (>60) mL/min BUN/Creatinine Ratio (6-22) Glucose (80-110) mg/dL Calcium (8.4-10.2) mg/dL Total Bilirubin (0.2-1.3) mg/dL AST (17-59) IU/L ALT (<50) IU/L Alkaline Phosphatase (38-126) U/L Total Creatine Kinase (55-170) U/L Troponin I (0.01-0.034) ng/mL Total Protein (6.3-8.2) g/dL Albumin (3.5-5.0) g/dL Globulin (1.7-4.1) g/dL Albumin/Globulin Ratio (1.0-2.8) Urine RBC 5-10/hpf H (0-5/HPF) Urine WBC None seen (0-5/HPF) Ur Squamous Epith Cells None seen (0-5/HPF) Urine Bacteria None seen (None) Ur Culture Indicated? Cult not indicated Vol Urine Centrifuged 10ml (spun) Point of Care Testing Glucose POC 98 Urine Dip Bedside Urine Glucose 500 mg/dl Bedside Urine Bilirubin - Negative Bedside Urine Ketone - Negative Urine Specific [place] 1.020 Bedside Urine Occult Blood + Bedside Urine pH 6.0 Bedside Urine Protein + 30 Bedside Urine Urobilinogen - Negative Bedside Urine Nitrite - Negative Bedside Urine Leukocytes - Negative Esterase Point of care testing: Point of Care Testing Glucose POC 98 Urine Dip Bedside Urine Glucose 500 mg/dl Bedside Urine Bilirubin - Negative Bedside Urine Ketone - Negative Urine Specific [place] 1.020 Bedside Urine Occult Blood + Bedside Urine pH 6.0 Bedside Urine Protein + 30 Bedside Urine Urobilinogen - Negative Bedside Urine Nitrite - Negative Bedside Urine Leukocytes - Negative Esterase ECG Data Attestation: I personally reviewed and interpreted this ECG as follows: Interpretation: Normal sinus rhythm with PACs, bigeminy, ventricular rate 79, no obvious ST segment elevation changes. Prominent T-waves anterior leads. RI 186, QRS 120, QTC 440. MDM Narrative Medical decision making narrative: 88-year-old male with chronic low back pain, lumbar pathology per his report from recent weeks MRI, two falls in the last couple of days, increasing right-sided low and mid back pain. Some tenderness paraspinous right low lumbar and right junction of L/T-spine on exam. CT thoracic spine and CT lumbar spine imaging requested. He does not want opiate medications. He is amenable to a trial of muscle relaxant and would like Tylenol. P.o. Tylenol dose. P.o. methocarbamol dose. CT thoracic spine. Impression: ?Severe compression deformity of the T12 vertebral body with a proximally 90% loss of vertebral body height and retropulsion with severe central canal stenosis at this level, acuity unknown. Consider further evaluation MRI. Mild compression deformity of the T6 vertebral body as detailed. Multilevel spondylotic changes of the thoracic spine. Atherosclerosis of the infrarenal abdominal aorta with high-grade stenosis as detailed then ectasia of the ascending thoracic aorta. Consider CTA of the chest abdomen and pelvis further evaluation. Incidental findings as detailed... See teleradiology report. CT lumbar spine noncontrast study. Impressions: ?Severe compression deformity of the T12 vertebral body with central canal stenosis. Consider MRI for further evaluation. Multilevel spondylotic changes of the lumbar spine. 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 Recommend CTA for further evaluation. Incidental findings as detailed.. See teleradiology report Imaging review, prior x-ray lumbar spine series 05/07/2024. Impression: ?Interval significant progression of T12 compression fraction with near-complete loss of T12 vertebral body height. No other vertebral compression fracture is seen. 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 See radiology report. There was mention of comparison study MRI spine without contrast 07/02/2023 from [facility]. Imaging review, prior CT angiogram abdomen and pelvis, done for GI bleeding protocol, on 07/31/2023. 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 See radiology report. In arterial tree component of the study this mentioned of bilateral iliac arterial stents, moderate diffuse calcific plaque with stenosis within the aortoiliac vasculature. Regarding the T12 fracture there is a mention of severe acute versus subacute wedging of T12, referencing CT abdomen and pelvis comparison study 07/05/2023. Previous imaging studies seemed mention T12 fracture, unclear acuity of further progression, there is mention of retropulsion on today's study than not obviously mentioned on prior studies available. 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 Await renal function GFR results blood testing tonight, consider CT aortogram Creatinine 2 with BUN 55, GFR 30 today. Prior comparison creatinine 0.9 noted in July 2023, GFR greater than 60 at that time. BUN elevation, hemoglobin not particularly low compared to prior studies, we will give IV fluid bolus, consider recheck of GFR. Hold CT angiogram testing for now. No Neurosurgery, Nephrology, vascular surgery at this facility. Numerous problems identified on imaging studies above reconsider transfer. We will send images to [facility], initiate neurosurgical consultation, consider transfer her poly specialty consultation not available here. 05, case presented to [facility]/ intake, images have been pushed for review, await call back from Neurosurgery, might need transfer for multidisciplinary consultations. Patient seems to be amenable to the possibility of being transferred to the [place] area if needed. 0700, case discussed with Dr [facility], who was able to review the transmitted CT images, who feels that there is some canal stenosis present but does not feel that since patient seems to be neurologically intact at this time that patient warrants emergent transfer, advises outpatient MRI of the spine at this time. Case further discussed with transfer service, we will attempt hydration here to hopefully improve GFR to the point of obtaining aortogram and subsequent vascular surgery consultation. 0715, signed out to Dr Rodriguez <Arthur Camargo, DO - Last Filed: 05/13/24 15:59> Lab Data Labs: Lab Results 05/13/24 05/13/24 05/13/24 Range/Units 04:05 04:45 07:35 WBC 11.9 H (4.5-11.0) X10^3/uL RBC 5.04 (4.5-5.9) X10^6/uL Hgb 14.0 (13.5-17.5) g/dL Hct 42.3 (41-53) % MCV 83.9 (80-100) fL MCH 27.7 (26-34) PG MCHC 33.0 (30-36) % RDW 16.7 H (11.6-14.8) % Plt Count 181 (150-400) X10^3/uL Neut % (Auto) 80.2 H (50-75) % Lymph % (Auto) 7.7 L (25-40) % [place] % (Auto) 11.6 (3-14) % Eos % (Auto) 0.3 L (2-4) % Baso % (Auto) 0.2 (0-2) % Neut # (Auto) 9600 H (0315-3183) /uL Lymph # (Auto) 900 L (7460-2424) /uL [place] # (Auto) 1400 H (0-900) /uL Eos # (Auto) 0 (0-450) /uL Baso # (Auto) 0 (0-100) /uL Sodium 135 L 134 L (137-145) mmol/L Potassium 4.3 4.0 (3.4-5.1) mmol/L Chloride 105 110 H (98-107) mmol/L Carbon Dioxide 23 16 L (22-32) mmol/L BUN 55 H 53 H (9-20) mg/dL Creatinine 2.08 H 1.90 H (0.66-1.25) mg/dL Estimated GFR 30 L 34 L (>60) mL/min BUN/Creatinine Ratio 26.4 H 27.9 H (6-22) Glucose 114 H 111 H (80-110) mg/dL Calcium 9.0 8.3 L (8.4-10.2) mg/dL Total Bilirubin 0.8 (0.2-1.3) mg/dL AST 49 (17-59) IU/L ALT 33 (<50) IU/L Alkaline Phosphatase 95 (38-126) U/L Total Creatine Kinase 316 H (55-170) U/L Troponin I 0.068 H (0.01-0.034) ng/mL Total Protein 6.6 (6.3-8.2) g/dL Albumin 3.7 (3.5-5.0) g/dL Globulin 2.9 (1.7-4.1) g/dL Albumin/Globulin Ratio 1.3 (1.0-2.8) Urine RBC 0-1/hpf (0-5/HPF) Urine WBC None seen (0-5/HPF) Ur Squamous Epith Cells 0-1 /hpf (0-5/HPF) Urine Bacteria None seen (None) Ur Culture Indicated? Cult not indicated Vol Urine Centrifuged 10ml (spun) 05/13/ Range/Units 08:23 WBC (4.5-11.0) X10^3/uL RBC (4.5-5.9) X10^6/uL Hgb (13.5-17.5) g/dL Hct (41-53) % MCV (80-100) fL MCH (26-34) PG MCHC (30-36) % RDW (11.6-14.8) % Plt Count (150-400) X10^3/uL Neut % (Auto) (50-75) % Lymph % (Auto) (25-40) % [place] % (Auto) (3-14) % Eos % (Auto) (2-4) % Baso % (Auto) (0-2) % Neut # (Auto) (8179-9196) /uL Lymph # (Auto) (9414-5565) /uL [place] # (Auto) (0-900) /uL Eos # (Auto) (0-450) /uL Baso # (Auto) (0-100) /uL Sodium (137-145) mmol/L Potassium (3.4-5.1) mmol/L Chloride (98-107) mmol/L Carbon Dioxide (22-32) mmol/L BUN (9-20) mg/dL Creatinine (0.66-1.25) mg/dL Estimated GFR (>60) mL/min BUN/Creatinine Ratio (6-22) Glucose (80-110) mg/dL Calcium (8.4-10.2) mg/dL Total Bilirubin (0.2-1.3) mg/dL AST (17-59) IU/L ALT (<50) IU/L Alkaline Phosphatase (38-126) U/L Total Creatine Kinase (55-170) U/L Troponin I (0.01-0.034) ng/mL Total Protein (6.3-8.2) g/dL Albumin (3.5-5.0) g/dL Globulin (1.7-4.1) g/dL Albumin/Globulin Ratio (1.0-2.8) Urine RBC 5-10/hpf H (0-5/HPF) Urine WBC None seen (0-5/HPF) Ur Squamous Epith Cells None seen (0-5/HPF) Urine Bacteria None seen (None) Ur Culture Indicated? Cult not indicated Vol Urine Centrifuged 10ml (spun) Point of Care Testing Glucose POC 98 Urine Dip Bedside Urine Glucose 500 mg/dl Bedside Urine Bilirubin - Negative Bedside Urine Ketone - Negative Urine Specific [place] 1.020 Bedside Urine Occult Blood + Bedside Urine pH 6.0 Bedside Urine Protein + 30 Bedside Urine Urobilinogen - Negative Bedside Urine Nitrite - Negative Bedside Urine Leukocytes - Negative Esterase Point of care testing: Point of Care Testing Glucose POC 98 Urine Dip Bedside Urine Glucose 500 mg/dl Bedside Urine Bilirubin - Negative Bedside Urine Ketone - Negative Urine Specific [place] 1.020 Bedside Urine Occult Blood + Bedside Urine pH 6.0 Bedside Urine Protein + 30 Bedside Urine Urobilinogen - Negative Bedside Urine Nitrite - Negative Bedside Urine Leukocytes - Negative Esterase Imaging Data CTA chest abdomen pelvis: Radiologist's Impression: PROCEDURE: CT ANGIO CHEST ABDOMEN PELVIS INDICATIONS: 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 After the administration of intravenous contrast, 2.5 mm thick sections again acquired from the lung apices to the iliac crests. Maximum intensity projection (MIP) oblique sagittal and coronal reformats were then acquired. For radiation dose reduction, the following was used: automated exposure control. COMPARISON: [facility], CT, CT ANGIO ABD/PEL GI BLEED, 07/31/2023, 15:47. FINDINGS: Image quality: Diagnostic. AORTA and its attachments: Ascending and descending thoracic aorta and abdominal aorta are of normal caliber without aneurysm or dissection or significant stenosis. Classic three-vessel arch anatomy. Great vessel origins are widely patent. Mild celiac origin stenosis. Severe proximal SMA stenosis. YOUNG grossly patent. Probable hemodynamically significant proximal right renal artery stenosis. Calcified stenosis of the abdominal aorta just below the lowest renal artery which likely measures approximately 60%. This is a focal narrowing. Below this, the infrarenal abdominal aorta is patent. Bilateral common iliac artery stents are patent. Wall however, there is the suggestion of a probable focal severe proximal right common iliac artery stent stenosis. Bilateral internal iliacs appear occluded. Bilateral common iliacs and external iliacs are widely patent. Common femorals are widely patent. CHEST: Lower Neck: No enlarged lymph nodes. Thyroid: No thyroid nodules which require sonographic evaluation. Axillae: No enlarged lymph nodes. Chest Wall: Unremarkable. Lungs and Pleura: No pneumothorax or pleural effusions. No consolidation or suspicious nodules. Heart: Heart size is normal. No pericardial effusion. Severe triple-vessel coronary artery calcifications. Remote CABG. Wall Thoracic Vessels: Pulmonary arteries demonstrate normal size. Mediastinum and Shanon: No enlarged lymph nodes. Esophagus: No wall thickening. No hiatal hernia. ABDOMEN: Liver: No solid mass. Gallbladder: Surgically absent Biliary ducts: No biliary dilation. Pancreas: Unchanged 3 cm exophytic cyst off of the pancreatic body. Pancreas otherwise unremarkable. Spleen: Size is within normal limits. Adrenal Glands: No adrenal nodules. Kidneys and Ureters: No hydronephrosis. No solid mass. No complex renal cystic lesion which requires follow up. In nonspecific edematous change in the perirenal fat bilaterally. Development of mild prominence of the left ureter down to the base of the bladder with no obstructing stone noted. Stomach and Bowel: Normal colonic caliber, without significant wall thickening. Liquid bowel contents suggest diarrhea. Diverticulosis without evidence of acute diverticulitis. Peritoneum: No abnormal intraperitoneal fluid. No free air. Ventral Wall: No hernia. Abdominal Nodes: No retroperitoneal or mesenteric adenopathy by size criteria. Vessels: Inferior vena cava is normal in size. PELVIS: Pelvic Organs: Prostate is enlarged. Prostate implant seeds.. Bladder: There is a Callahan catheter in the bladder. The bladder is partially decompressed. Pelvic Nodes: No enlarged lymph nodes. Miscellaneous: No inguinal hernias are seen. Bones: Again noted is a T12 compression which has further compressed, and is now a vertebral body plana. There is increased bony retropulsion with resultant moderate canal stenosis. Interval L1 inferior endplate fracture, possibly acute or subacute. No lytic or blastic bony lesions. Gamma nail present in left hip. IMPRESSION: 1. Thoracic aorta is normal caliber without dissection. 2. Mild celiac stenosis, severe SMA stenosis, hemodynamically significant right renal artery stenosis. 3. Focal calcified stenosis of the infrarenal abdominal aorta just below the lowest renal artery measuring approximately 60%. 4. Bilateral common iliac artery stents are in place. There is a probable severe stenosis within the stented portion of the right common iliac artery stent. 5. Severe triple-vessel coronary artery calcifications. 6. Stable 3 cm pancreatic cyst. 7. Prostatomegaly. 8. Mild dilatation of the left ureter has developed without evidence of an obstructing lesion. 9. Development of nonspecific edematous change in the perirenal fat bilaterally. 10. Interval increase in T12 compression, likely chronic, with increased bony retropulsion and moderate canal stenosis. 11. Interval inferior endplate fracture of L5, possibly acute or subacute. [facility] Narrative Medical decision making narrative: 88-year-old male with chronic low back pain, lumbar pathology per his report from recent weeks MRI, two falls in the last couple of days, increasing right-sided low and mid back pain. Some tenderness paraspinous right low lumbar and right junction of L/T-spine on exam. CT thoracic spine and CT lumbar spine imaging requested. He does not want opiate medications. He is amenable to a trial of muscle relaxant and would like Tylenol. P.o. Tylenol dose. P.o. methocarbamol dose. CT thoracic spine. Impression: ?Severe compression deformity of the T12 vertebral body with a proximally 90% loss of vertebral body height and retropulsion with severe central canal stenosis at this level, acuity unknown. Consider further evaluation MRI. Mild compression deformity of the T6 vertebral body as detailed. Multilevel spondylotic changes of the thoracic spine. Atherosclerosis of the infrarenal abdominal aorta with high-grade stenosis as detailed then ectasia of the ascending thoracic aorta. Consider CTA of the chest abdomen and pelvis further evaluation. Incidental findings as detailed... See teleradiology report. CT lumbar spine noncontrast study. Impressions: ?Severe compression deformity of the T12 vertebral body with central canal stenosis. Consider MRI for further evaluation. Multilevel spondylotic changes of the lumbar spine. 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 Recommend CTA for further evaluation. Incidental findings as detailed.. See teleradiology report Imaging review, prior x-ray lumbar spine series 05/07/2024. Impression: ?Interval significant progression of T12 compression fraction with near-complete loss of T12 vertebral body height. No other vertebral compression fracture is seen. 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 See radiology report. There was mention of comparison study MRI spine without contrast 07/02/2023 from [facility]. Imaging review, prior CT angiogram abdomen and pelvis, done for GI bleeding protocol, on 07/31/2023. 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 See radiology report. In arterial tree component of the study this mentioned of bilateral iliac arterial stents, moderate diffuse calcific plaque with stenosis within the aortoiliac vasculature. Regarding the T12 fracture there is a mention of severe acute versus subacute wedging of T12, referencing CT abdomen and pelvis comparison study 07/05/2023. Previous imaging studies seemed mention T12 fracture, unclear acuity of further progression, there is mention of retropulsion on today's study than not obviously mentioned on prior studies available. 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 Await renal function GFR results blood testing tonight, consider CT aortogram Creatinine 2 with BUN 55, GFR 30 today. Prior comparison creatinine 0.9 noted in July 2023, GFR greater than 60 at that time. BUN elevation, hemoglobin not particularly low compared to prior studies, we will give IV fluid bolus, consider recheck of GFR. Hold CT angiogram testing for now. No Neurosurgery, Nephrology, vascular surgery at this facility. Numerous problems identified on imaging studies above reconsider transfer. We will send images to [facility], initiate neurosurgical consultation, consider transfer her poly specialty consultation not available here. 05, case presented to [facility]/ intake, images have been pushed for review, await call back from Neurosurgery, might need transfer for multidisciplinary consultations. Patient seems to be amenable to the possibility of being transferred to the [place] area if needed. 07, case discussed with Dr Trejo [facility], who was able to review the transmitted CT images, who feels that there is some canal stenosis present but does not feel that since patient seems to be neurologically intact at this time that patient warrants emergent transfer, advises outpatient MRI of the spine at this time. Case further discussed with transfer service, we will attempt hydration here to hopefully improve GFR to the point of obtaining aortogram and subsequent vascular surgery consultation. 07, signed out to Dr Rodriguez 07 received sign-out, patient came in complaining of exacerbation of low back pain, was found to have retropulsion with canal stenosis on CT scan, Neurosurgery was consulted states patient not requiring transfer for urgent or emergent intervention, recommending outpatient MRI given the fact that patient without any claudication symptoms, neurovascularly intact lower extremities no red flags. With a stand bear weight ambulate unassisted here in the emergency department. 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 Patient also found to have HÉCTOR, patient already received 1 L normal saline, repeat BMP pending, will obtain CT angio if creatinine improved, would then reach out to vascular for additional recommendations given finding. 0800: Was informed by nursing that patient now having acute urinary retention over 1 L on bladder scan, we will place Callahan catheter for drainage, will reach back out to Neurosurgery given new acute urinary retention finding in the setting of canal stenosis on CT lumbar spine. Repeat BMP with improving creatinine, GFR 34. Will obtain CTA abdomen 1038: Discussed case again with Dr. Trejo (Ns) is recommending MRI for possible stenosis, if showing stenosis would recommend intervention if normal would recommend outpatient follow-up 1053: Discussed case with vascular surgeon Dr. Liu, who personally reviewed the imaging, states that he has chronic findings no acute findings, recommend outpatient follow-up, states that she does see good blood flow to the kidneys therefore does not believe the renal stenosis is contributory to patient's symptoms. No need for transfer from a vascular surgery perspective. 1347: Case was discussed with Neurosurgery, Dr. Castillo, he personally reviewed the MRI findings states that there was not enough stenosis within the canal to require urgent or emergent transfer is still recommending outpatient follow-up, they will reach out to the patient for follow-up. Patient will be sent home with Callahan catheter follow up with Neurosurgery, urology, and PCP in the outpatient setting. Discharge Plan Departure Patient Disposition: Home Clinical Impression: Bilateral leg weakness, Fall from ground level, Fracture of T12 vertebra, Central stenosis of spinal canal, HÉCTOR (acute kidney injury), Stenosis of abdominal aorta Activity Restrictions/Additional Instructions: Please follow-up with Urology, Neurosurgery and PCP Please call [phone] (if you do not hear from spine/neurosurgery 24 hours for follow-up appointment) Please read the discharge instructions sheet carefully and bring all papers to all doctor follow-up visits, as it may contain information that your doctor may want to see. Disease processes change and evolve, if your symptoms worsen or if you develop any new symptoms that are concerning to you please return for evaluation. Your evaluation today does not show any evidence of any life-threatening/serious illnesses requiring admission to the hospital or surgery. Please follow-up with your doctor for re-evaluation in approximately 1 day. Seek immediate medical attention for any worrisome symptoms. Prescriptions: New tamsulosin [Flomax] 0.4 mg capsule 0.4 mg PO DAILY 30 Days Qty: 30 0RF prednisone 20 mg tablet 40 mg PO DAILY 5 Days Qty: 10 0RF No Action omeprazole 20 mg tablet,delayed release (DR/EC) 20 mg PO DAILY amlodipine 5 mg tablet 5 mg PO DAILY atorvastatin 80 mg tablet 80 mg PO DAILY Jardiance 10 mg tablet 10 mg PO DAILY zolpidem 5 mg tablet 5 mg PO ONCE PM PRN (Reason: Insomnia) losartan 100 mg tablet 100 mg PO DAILY metoprolol succinate 100 mg tablet extended release 24 hr 100 mg PO DAILY Referrals: Romeo Marshall DO [Physician] - (Callahan catheter) Miscellaneous,Doctor, MD [Primary Care Provider] - Stand Alone Forms: Patient Portal/API
--- NOTE | 2024-05-13 03:20 | DI.CT.S_ITS ---
PROCEDURE: CT LUMBAR SPINE WO CON INDICATIONS: back pain TECHNIQUE: Noncontrast 3 mm thick sections acquired from the T12 level to the sacrum. Sagittal and coronal reformats were constructed. For radiation dose reduction, the following was used: automated exposure control. COMPARISON: None. FINDINGS: Image quality: Excellent. Bones: There is normal bony alignment. No acute lumbar vertebral body compression fractures. Redemonstration of T12 compression deformity. Diffusely decreased osseous mineralization. Multilevel degenerative changes of the lumbar spine. No suspicious lytic or blastic bony lesions. No pars defects. Soft tissues: No retroperitoneal masses or hematomas. 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 Bilateral iliac artery stents in place. Mild bilateral hydroureteronephrosis. Bladder appears distended, only partially included within the field of view. Diverticulosis without evidence of acute diverticulitis within the visualized colon. Status post cholecystectomy. Stable cystic structure within the body of the pancreas. IMPRESSION: Multilevel degenerative changes of the lumbar spine without acute osseous abnormality. Redemonstration of severe compression deformity of T12 as discussed on dedicated thoracic spine CT. 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 Recommend CT angiography for further evaluation. Mild bilateral hydroureteronephrosis. Distended urinary bladder is partially visualized. Recommend correlation with bladder obstruction. Stable cystic structure within the body of the pancreas. Findings are concordant with preliminary interpretation provided by [facility]. Dictated by: Justin Toscano M.D. on 05/13/2024 at 8:50 Approved by: Justin Toscano M.D. on 05/13/2024 at 8:54
--- NOTE | 2024-05-13 03:20 | DI.CT.S_ITS ---
PROCEDURE: CT THORACIC SPINE WO CON INDICATIONS: back pain TECHNIQUE: Noncontrast 3 mm thick sections acquired through the region of interest in the thoracic spine. Sagittal and coronal reformats were then constructed. For radiation dose reduction, the following was used: automated exposure control. COMPARISON: [facility], CT, CT ANGIO ABD/PEL GI BLEED, 07/31/2023, 15:47. FINDINGS: Image quality: Excellent. Bones: There is normal overall bony alignment. Compression deformity of the T12 vertebral body with severe height loss, appears mildly progressed compared to 07/31/2023. Redemonstration retropulsion which is stable compared to prior. Mild height loss of the T4, T5 and T6 vertebral bodies appears chronic. Diffusely decreased osseous mineralization. Multilevel degenerative changes with disc height loss and osteophytosis. No suspicious sclerotic or lytic bony lesions. Shoulder arthroplasty is visualized right. Soft tissues: No paravertebral masses or hematomas. Visualized posteromedial lungs appear clear. 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 Postsurgical changes from prior CABG. Severe coronary artery calcifications. Bilateral dependent atelectasis. Small hiatal hernia. Partially visualized bilateral hydronephrosis. Stable cystic focus within the body of the pancreas. IMPRESSION: Severe compression deformity of the T12 vertebral body is mildly progressed compared to 07/31/2023 with stable retropulsion. 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 Mild bilateral hydronephrosis. A CT angio of the abdomen has been ordered at the time of dictation. Findings are concordant with preliminary interpretation provided by [facility]. Dictated by: Justin Toscano M.D. on 05/13/2024 at 8:42 Approved by: Justin Toscano M.D. on 05/13/2024 at 8:50
--- NOTE | 2024-05-13 03:56 | EKG_ITS ---
Located Within [facility] [address] [place] [address] Test Date: 2024-05-13 Pat Name: Gaudencio Mckoy Department: Located Within [facility] Room: Gender: Male [employer] Supervisor: : [id number] Requested By: Order Number: [id number] Reading MD: Peña Malone MD Measurements Intervals [place] Rate: 79 P: 50 NV: 186 QRS: -37 QRSD: 120 T: 58 QT: 384 QTc: 440 Interpretive Statements Sinus rhythm with premature atrial complexes in a pattern of bigeminy Left axis deviation Minimal voltage criteria for LVH, may be normal variant ( Sameer product ) Septal infarct , age undetermined NO SIGNIFICANT CHANGE FROM PRIOR TRACING Electronically Signed On 05-13-2024 7:34:11 PDT by Peña Malone MD
[2024-05-13] MEDS: methocarbamoL 500 MG TABLET PO (04:03)
[2024-05-13] MEDS: ACETAMINOPHEN 325 MG TABLET 650 MG PO (04:03)
[2024-05-13 04:14] LABS: Add Manual Diff / Slide Review NO; Basophils Absolute Auto 0 /uL (0-100); Basophils Percent Auto 0.2 % (0-2); Eosinophils Absolute Auto 0 /uL (0-450); Eosinophils Percent Auto 0.3 % (2-4); Hematocrit 42.3 % (41-53); Lymphocytes Absolute Auto 900 /uL (1100-4500); Lymphocytes Percent Auto 7.7 % (25-40); Mean Corpuscular Hemoglobin 27.7 PG (26-34); Mean Corpuscular Volume 83.9 fL (80-100); Monocytes Absolute Auto 1400 /uL (0-900); Monocytes Percent Auto 11.6 % (3-14); Neutrophils Absolute Auto 9600 /uL (1500-7000); Neutrophils Percent Auto 80.2 % (50-75); Platelet Count 181 X10^3/uL (150-400); Red Blood Cell Count 5.04 X10^6/uL (4.5-5.9); Red Cell Distribution Width 16.7 % (11.6-14.8); White Blood Cell Count 11.9 X10^3/uL (4.5-11.0)
[2024-05-13 04:35] LABS: Alanine Aminotransferase 33 IU/L (<50); Albumin 3.7 g/dL (3.5-5.0); Albumin Globulin Ratio 1.3 (1.0-2.8); Alkaline Phosphatase 95 U/L (38-126); Aspartate Aminotransferase 49 IU/L (17-59); BUN Creatinine Ratio 26.4 (6-22); Bilirubin Total 0.8 mg/dL (0.2-1.3); Blood Urea Nitrogen 55 mg/dL (9-20); Carbon Dioxide 23 mmol/L (22-32); Chloride 105 mmol/L (98-107); Estimated Glomerular Filt Rate 30 mL/min (>60); Globulin 2.9 g/dL (1.7-4.1); Glucose 114 mg/dL (80-110); HEMOLYSIS < 15 (0-50); Potassium 4.3 mmol/L (3.4-5.1); Sodium 135 mmol/L (137-145); Total Protein 6.6 g/dL (6.3-8.2)
--- NOTE | 2024-05-13 04:41 | PC.NURSE ---
Pt states that he did not fall twice, but got too weak and went down to the ground and could not get up. Fire department helped get him up first time, then he told them he would be fine. The second time he could get up he asked them to bring him to the ER for evaluation and treatment.
[2024-05-13 04:46] LABS: Troponin I 0.068 ng/mL (0.01-0.034)
[2024-05-13] MEDS: SODIUM CHLORIDE 0.9% 1,000 ML 1000 ML IV (04:56)
[2024-05-13 05:15] LABS: Bacteria Urine None Seen; Culture Indicated Urine Cult Not Indicated; RBC Urine 0-1/HPF (0-5/HPF); Squamous Epithelial Cell Urine 0-1 /HPF (0-5/HPF); Urine Volume 10mL (spun); WBC Urine None Seen (0-5/HPF)
--- NOTE | 2024-05-13 06:03 | PC.NURSE ---
Pt has dx of progression of T-12 fx, high-grade aortal stenosis, central canal stenosis. Needs to be transferred for higher level of care. I have talked to the following [facility] -> Spoke with Ryann at 0500 about doing a consult/transfer request with Neurosurgery. Imaging and facesheet was pushed at 0504. Dr. Pedroza spoke with Leonie for the intake on the pt. Awaiting calls from specialists at [facility] at this time. NADIR November and aware
[2024-05-13 07:57] LABS: BUN Creatinine Ratio 27.9 (6-22); Blood Urea Nitrogen 53 mg/dL (9-20); Calcium 8.3 mg/dL (8.4-10.2); Carbon Dioxide 16 mmol/L (22-32); Chloride 110 mmol/L (98-107); Creatine Kinase 316 U/L (55-170); Estimated Glomerular Filt Rate 34 mL/min (>60); Glucose 111 mg/dL (80-110); HEMOLYSIS < 15 (0-50); Sodium 134 mmol/L (137-145)
--- NOTE | 2024-05-13 08:04 | DI.CT.S_ITS ---
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 After the administration of intravenous contrast, 2.5 mm thick sections again acquired from the lung apices to the iliac crests. Maximum intensity projection (MIP) oblique sagittal and coronal reformats were then acquired. For radiation dose reduction, the following was used: automated exposure control. COMPARISON: [facility], CT, CT ANGIO ABD/PEL GI BLEED, 07/31/2023, 15:47. FINDINGS: Image quality: Diagnostic. AORTA and its attachments: Ascending and descending thoracic aorta and abdominal aorta are of normal caliber without aneurysm or dissection or significant stenosis. Classic three-vessel arch anatomy. Great vessel origins are widely patent. Mild celiac origin stenosis. Severe proximal SMA stenosis. YOUNG grossly patent. Probable hemodynamically significant proximal right renal artery stenosis. Calcified stenosis of the abdominal aorta just below the lowest renal artery which likely measures approximately 60%. This is a focal narrowing. Below this, the infrarenal abdominal aorta is patent. Bilateral common iliac artery stents are patent. Wall however, there is the suggestion of a probable focal severe proximal right common iliac artery stent stenosis. Bilateral internal iliacs appear occluded. Bilateral common iliacs and external iliacs are widely patent. Common femorals are widely patent. CHEST: Lower Neck: No enlarged lymph nodes. Thyroid: No thyroid nodules which require sonographic evaluation. Axillae: No enlarged lymph nodes. Chest Wall: Unremarkable. Lungs and Pleura: No pneumothorax or pleural effusions. No consolidation or suspicious nodules. Heart: Heart size is normal. No pericardial effusion. Severe triple-vessel coronary artery calcifications. Remote CABG. Wall Thoracic Vessels: Pulmonary arteries demonstrate normal size. Mediastinum and Shanon: No enlarged lymph nodes. Esophagus: No wall thickening. No hiatal hernia. ABDOMEN: Liver: No solid mass. Gallbladder: Surgically absent Biliary ducts: No biliary dilation. Pancreas: Unchanged 3 cm exophytic cyst off of the pancreatic body. Pancreas otherwise unremarkable. Spleen: Size is within normal limits. Adrenal Glands: No adrenal nodules. Kidneys and Ureters: No hydronephrosis. No solid mass. No complex renal cystic lesion which requires follow up. In nonspecific edematous change in the perirenal fat bilaterally. Development of mild prominence of the left ureter down to the base of the bladder with no obstructing stone noted. Stomach and Bowel: Normal colonic caliber, without significant wall thickening. Liquid bowel contents suggest diarrhea. Diverticulosis without evidence of acute diverticulitis. Peritoneum: No abnormal intraperitoneal fluid. No free air. Ventral Wall: No hernia. Abdominal Nodes: No retroperitoneal or mesenteric adenopathy by size criteria. Vessels: Inferior vena cava is normal in size. PELVIS: Pelvic Organs: Prostate is enlarged. Prostate implant seeds.. Bladder: There is a Callahan catheter in the bladder. The bladder is partially decompressed. Pelvic Nodes: No enlarged lymph nodes. Miscellaneous: No inguinal hernias are seen. Bones: Again noted is a T12 compression which has further compressed, and is now a vertebral body plana. There is increased bony retropulsion with resultant moderate canal stenosis. Interval L1 inferior endplate fracture, possibly acute or subacute. No lytic or blastic bony lesions. Gamma nail present in left hip. IMPRESSION: 1. Thoracic aorta is normal caliber without dissection. 2. Mild celiac stenosis, severe SMA stenosis, hemodynamically significant right renal artery stenosis. 3. Focal calcified stenosis of the infrarenal abdominal aorta just below the lowest renal artery measuring approximately 60%. 4. Bilateral common iliac artery stents are in place. There is a probable severe stenosis within the stented portion of the right common iliac artery stent. 5. Severe triple-vessel coronary artery calcifications. 6. Stable 3 cm pancreatic cyst. 7. Prostatomegaly. 8. Mild dilatation of the left ureter has developed without evidence of an obstructing lesion. 9. Development of nonspecific edematous change in the perirenal fat bilaterally. 10. Interval increase in T12 compression, likely chronic, with increased bony retropulsion and moderate canal stenosis. 11. Interval inferior endplate fracture of L5, possibly acute or subacute. Dictated by: Al Ram M.D. on 05/13/2024 at 8:59 Approved by: Al Ram M.D. on 05/13/2024 at 9:27
[2024-05-13] MEDS: LIDOCAINE 2% (GLYDO) 6 ML GEL TOP (08:05)
[2024-05-13] MEDS: SODIUM CHLORIDE 0.9% 1,000 ML 500 ML IV (08:35)
[2024-05-13 09:09] LABS: Urine Volume 10mL (spun)
[2024-05-13 09:12] LABS: Bacteria Urine None Seen; Culture Indicated Urine Cult Not Indicated; RBC Urine 5-10/HPF (0-5/HPF); Squamous Epithelial Cell Urine None Seen (0-5/HPF); WBC Urine None Seen (0-5/HPF)
--- NOTE | 2024-05-13 10:36 | DI.MRI.S_ITS ---
PROCEDURE: MR LUMBAR SPINE WO/W CON INDICATIONS: CT scan showing canal stenosis TECHNIQUE: Noncontrast sagittal T1 spin echo and T2 fast spin echo, sagittal STIR, axial T1 and T2 fast spin echo through the lumbar spine. In cases with scoliosis, additional coronal T2 fast spin echo may be performed. After the administration of contrast, sagittal and axial T1 spin echo with fat saturation through the lumbar spine. COMPARISON: [facility], MR, MR LUMBAR SPINE WITHOUT CONTRAST, 07/10/2023, 21:34. FINDINGS: Image quality: Excellent. Alignment and curvature: Mild levocurvature. No significant spondylolisthesis. Marrow: Edema throughout the L5 vertebral body with mild height loss involving the inferior endplate and subtle fracture line. Redemonstration of severe compression deformity of T12 which is mildly progressed compared to 07/31/2023. There is mild associated edema, consistent with and acute on chronic component. Approximately 5 millimeters of retropulsion is present. Spinal cord: Conus medullaris terminates at the L1-L2 level. Visualized spinal cord demonstrates normal signal, without suspicious enhancement. Paraspinous soft tissues: No paravertebral masses or abnormal enhancement. T12-L1: Retropulsion resulting in mild central canal stenosis and moderate neural foraminal stenosis. L1-L2: Normal appearance. L2-L3: Disc desiccation and mild disc bulge. Facet arthropathy and thickening of ligamentum flavum. No central canal stenosis. No significant neural foraminal stenosis. L3-L4: Disc desiccation and mild posterior disc bulge. Facet arthropathy and thickening of ligamentum flavum. Stable minimal central canal stenosis. Mild right and no left neural foraminal stenosis.. L4-L5: Disc desiccation and posterior disc bulge asymmetric to the right. Stable mild central canal stenosis. Facet arthropathy and thickening of ligamentum flavum. Stable moderate right and mild left neural foraminal stenosis. L5-S1: Disc desiccation. Facet arthropathy and thickening of ligamentum flavum. No central canal stenosis. Mild to moderate left and no right neural foraminal stenosis is stable. IMPRESSION: 1. Edema throughout the L5 vertebral body with mild height loss at the inferior endplate and subtle fracture line, consistent with acute compression deformity. 2. Severe compression deformity of the T12 vertebral body, mildly progressed compared to 07/31/2023 with mild associated edema. Findings are consistent with an acute on chronic component. Approximately 5 millimeters of retropulsion resulting in mild central canal stenosis. 3. 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 Dictated by: Justin Toscano M.D. on 05/13/2024 at 12:34 Approved by: Justin Toscano M.D. on 05/13/2024 at 12:44
--- NOTE | 2024-05-13 10:52 | DI.RAD.S_ITS ---
PROCEDURE: XR CHEST 1V INDICATIONS: MRI clearance TECHNIQUE: One view of the chest was acquired. COMPARISON: None. FINDINGS: Surgical changes and devices: Right shoulder arthroplasty. CABG.. Lungs and pleura: Lungs are clear. No pleural effusions or pneumothorax. Mediastinum: Mediastinal contours appear normal. Heart size is normal. Bones and chest wall: No suspicious bony lesions. Overlying soft tissues appear unremarkable. IMPRESSION: No acute cardiopulmonary abnormality is seen. Dictated by: Al Ram M.D. on 05/13/2024 at 11:53 Approved by: Al Ram M.D. on 05/13/2024 at 11:56
[2024-05-13] MEDS: METOPROLOL ER 50 MG TABLET 100 MG PO (13:58)
[2024-05-13] MEDS: ATORVASTATIN 20 MG TABLET 80 MG PO (13:58)
[2024-05-13] MEDS: TAMSULOSIN 0.4 MG CAPSULE PO (13:59)
[2024-05-13] MEDS: LOSARTAN 50 MG TABLET 100 MG PO (13:59)
[2024-05-13] MEDS: AMLODIPINE 5 MG TABLET PO (13:59)
--- NOTE | 2024-05-13 14:56 | PC.NURSE ---
Pt ambulated around the department well with a walker. After getting up patient is able to move around quickly with moderate pain. He states he cannot use a walker at his boat because everything is too close together and it would not fit. Pt calling his friend valeria to see about getting a ride home.
--- NOTE | 2024-05-13 16:07 | CM.SWNOTE ---
ED LOG BUNCHER Note: Patient is a 88yo male, resident of [place], presented to the ED for back pain and ground level falls. Patient is currently staying in [place] on his boat for the summer, alone. Patient's primary care provider is Dr. Tulio Jerry in [place] and insurance is [employer] and Medicare Part A only. [employer] has patient on his service. ED LOG BUNCHER was consulted to assist with safe discharge planning as pt is medically cleared with follow up with Neurology and Urology (discharging with orellana catheter). ED LOG BUNCHER entered room, introduced self and role. Patient was found in bed, able to communicate preferences. Patient confirmed that he lives alone and stated he has no family or friends in the area to assist him post-discharge. Patient requested assistance with obtaining a wheelchair and transport home. ED LOG BUNCHER reviewed plans of following up with consults after discharge, pt verbalized understanding. Patient explained he has no return date for [place] to be closer to support. ED LOG BUNCHER discussed home health or any other referrals that can be made in the community, pt declined all. Patient states he had a bad experience with home health in the past and declined this LOG BUNCHER offer twice. Pt also declining caregiver list. ED LOG BUNCHER reviewed this plan with RN and ED Provider, PT consult placed as pt was stating he was not able to ambulate without wheelchair. Inpatient PT was called at 1515 by this LOG BUNCHER, left a voice message. ED RN able to do ambulation trial and found pt can ambulate well with a FWW. FWW being dispensed by ED. Plan: Patient cleared for discharge home, pt friend, Lupillo, arrived at bedside to transport pt back to boat docked at [facility]. Pt to follow up with Neurology, Urology and [employer] for extra support. JANICE Cruz
== END 2024-05-13 16:29 | disposition home or self-care (01) ==
PROVIDERS: Emergency Medicine; Emergency Provider Student in an Organized Health Care Education/Training Program
DX: S22.089A Unspecified fracture of T11-T12 vertebra, initial encounter for closed fracture (principal); R53.1 Weakness; Q25.1 Coarctation of aorta; N17.9 Acute kidney failure, unspecified; M48.00 Spinal stenosis, site unspecified; W18.30XA Fall on same level, unspecified, initial encounter
CPT/HCPCS: 36415; 51798; 71045; 71275; 72128; 72131; 72158; 74174; 80048; 80053; 81003; 81015; 82550; 82962; 84484; 85025; 93005; 93010; 96360; 96361; 99284; 99285; A9579; Q9967